=== PATIENT | male | born 1955 | race Two or more races ===

== ENCOUNTER 2022-12-05 18:16 | Emergency (ER) | payer OTHER, MEDICAID ==
[~2022-12-05] VITALS: Ht 167.6 cm; Wt 63.0 kg
[2022-12-05] MEDS ORDERED: SODIUM CHLORIDE 0.9% 1,000 ML IV ONE (18:45)
[2022-12-05 19:25] LABS: Alanine Aminotransferase 13 U/L (7-40); Alkaline Phosphatase 176 U/L (46-116); Anion Gap 10 (5-15); Aspartate Aminotransferase 10 U/L (13-40); BUN/Creatinine Ratio 21.5 (10.0-20.0); Blood Urea Nitrogen 26 mg/dL (9-23); Calcium 8.6 mg/dL (8.7-10.4); Carbon Dioxide 24 mmol/L (20-30); Chloride 91 mmol/L (98-107); Glucose 186 mg/dL (74-106); Sodium 125 mmol/L (136-145)
[2022-12-05 19:26] LABS: Albumin 3.7 g/dL (3.2-4.8); Bilirubin, Total 0.5 mg/dL (0.2-1.0); Total Protein 5.6 g/dL (5.7-8.2)
[2022-12-05 19:43] LABS: Basophils # (auto) 0 10 ^3/uL (0-0.2); Basophils % (auto) 0.1 % (0.0-2.0); Eosinophils # (auto) 0 10 ^3/uL (0-0.8); Eosinophils % (auto) 0.1 % (0.0-7.0); Hematocrit 24.4 % (41.0-53.0); Hemoglobin 8.2 g/dL (13.5-17.5); Lymphocytes # (auto) 3.4 10 ^3/uL (0.4-5.4); Lymphocytes % (auto) 15.4 % (10.0-50.0); Mean Corpuscular Hemoglobin 29.9 pg (28.0-32.0); Mean Corpuscular Hgb Conc. 33.6 g/dL (32.0-36.0); Mean Corpuscular Volume 89.2 fL (80.0-100.0); Monocytes # (auto) 1.7 10 ^3/uL (0-1.3); Monocytes % (auto) 7.5 % (0.0-12.0); Neutrophils # (auto) 17.1 10 ^3/uL (1.6-8.6); Neutrophils % (auto) 76.9 % (37.0-80.0); Nucleated Red Blood Cells % 0.1 %; Red Blood Cells 2.74 10^6/uL (4.5-5.90); Red Cell Distribution Width 14.5 % (11.8-14.3); White Blood Cell 22.3 10^3/uL (4.4-10.8)
[2022-12-05 19:49] LABS: CRP High Sensitivity 19.27 mg/dL (<1.0)
[2022-12-05 20:00] LABS: Erythrocyte Sedimentation Rate 38 mm/hr (0-20)
[2022-12-05] MEDS ORDERED: PIPERACILLIN-TAZOB 3.375GM 100 ML IV ONE (20:15)
[2022-12-05] MEDS ORDERED: VANCOMYCIN 1GM/250ML 250 ML IV ONE (20:15)
[2022-12-05] MEDS ORDERED: LACTATED RINGER'S 1,900 ML IV ONE (20:15)
[2022-12-05 20:30] VITALS: PULSE 86; RESP 22; O2SAT 98
[2022-12-05] MEDS ORDERED: HYDROcodone-ACET 10/325MG TAB PO ONE (21:15)
[2022-12-05] MEDS ORDERED: CLINDAMYCIN 600MG IV 50 ML IV ONE (22:45)
[2022-12-05] MEDS ORDERED: ONDANSETRON HCL 4 MG/2 ML VIAL IV ONE (23:15)
[2022-12-05] MEDS ORDERED: LACTATED RINGER'S 1,000 ML IV ONE (23:45)
[2022-12-05] MEDS ORDERED: ALBUMIN 25% 100 ML IV ONE (23:45)
[2022-12-06] MEDS ORDERED: HYDROmorphone HCL 2 MG/ML VL/or syr IV ONE (01:00)
[2022-12-06 01:19] VITALS: TEMP 97.8; O2SAT 97
[2022-12-06 01:29] VITALS: BP 102/51; PULSE 101; RESP 23
== END 2022-12-06 02:50 | disposition short-term general hospital (02) ==
LOC: ER 18:16
DX: L03.115 Cellulitis of right lower limb (principal); D64.9 Anemia, unspecified; D72.829 Elevated white blood cell count, unspecified; E86.0 Dehydration; E87.20 Acidosis, unspecified; E10.9 Type 1 diabetes mellitus without complications
CPT/HCPCS: 36415; 71045; 73700; 80053; 83605; 85025; 85652; 86141; 87040; 93005; 96361; 96365; 96366; 96367; 96368; 96375; 99291; J1170; J2405; J2543; J3370; J3490; P9047

== ENCOUNTER 2023-11-11 13:07 | Inpatient (IN) | payer OTHER, MEDICAID ==
[~2023-11-11] VITALS: Ht 180.3 cm; Wt 51.4 kg
[2023-11-11 14:16] LABS: Hematocrit 30.1 % (41.0-53.0); Hemoglobin 9.9 g/dL (13.5-17.5); Mean Corpuscular Hemoglobin 31.3 pg (28.0-32.0); Mean Corpuscular Hgb Conc. 32.9 g/dL (32.0-36.0); Platelet Count (auto) 241 10^3/uL (140-450); Red Blood Cells 3.17 10^6/uL (4.5-5.90); Red Cell Distribution Width 17.9 % (11.8-14.3); White Blood Cell 13.5 10^3/uL (4.4-10.8)
[2023-11-11 14:28] LABS: Chloride 108 mmol/L (98-107); Potassium 4.5 mmol/L (3.5-5.1); Sodium 135 mmol/L (136-145)
[2023-11-11 14:29] LABS: Anion Gap 5 (5-15); Calcium 9.5 mg/dL (8.7-10.4); Carbon Dioxide 22 mmol/L (20-30)
[2023-11-11 14:34] VITALS: PULSE 77; RESP 18; O2SAT 98
[2023-11-11 14:34] LABS: BUN/Creatinine Ratio 13.8 (10.0-20.0); Blood Urea Nitrogen 12 mg/dL (9-23); Glucose 124 mg/dL (74-106); Lipase 32 U/L (12-53)
[2023-11-11 14:35] LABS: Band Neutrophils % (manual) 0; Basophils % (manual) 0 (0.0-2.0); Blast Cells 0; Metamyelocytes % 0; Myelocytes % 0; Promyelocytes % 0; Reactive Lymphocytes 0
[2023-11-11] MEDS: ONDANSETRON HCL 4 MG/2 ML VIAL IV ONE ×2 (14:53→18:33)
[2023-11-11] MEDS: MORPHINE SULFATE INJ 2 MG/ml SYRG IV ONE ×2 (14:54→18:33)
[2023-11-11] MEDS: PIPERACILLIN-TAZOB 3.375GM 100 ML IV ONE (15:43)
[2023-11-11 16:37] LABS: Urine Bacteria None Seen /hpf (None Seen)
[2023-11-11 16:55] LABS: Urine Blood 1+ /uL (Negative); Urine Clarity Clear (Clear); Urine Color Light-Yellow (Yellow); Urine Protein, UAD Negative (Negative); Urine Specific Gravity 1.021 (1.001-1.035); Urine Urobilinogen Normal (Negative); Urine WBC 2 /hpf (0 - 3)
[2023-11-11 17:43] LABS: Eosinophils % (manual) 1 (0-7); Lymphocytes % (manual) 56 (10.0-50.0); Monocytes % (manual) 5 (0-12); Smudge Cells 3 /100 WBC
[2023-11-11 17:44] LABS: Anisocytosis Slight; Large Platelets FEW; Macrocytosis Slight; Ovalocytes FEW; Platelet Estimate Adequa
[2023-11-11] MEDS ORDERED: ASPI1CHW5 PO (18:43)
[2023-11-11] MEDS ORDERED: PEN400T PO (18:43)
[2023-11-11] MEDS ORDERED: ATOR-47 PO (18:43)
[2023-11-11] MEDS ORDERED: DEXTROSE (50%) 50ML SYRG IV PRN (19:00)
[2023-11-11 19:35] LABS: Albumin 4.2 g/dL (3.2-4.8); Bilirubin, Total 0.4 mg/dL (0.2-1.0); Total Protein 6.5 g/dL (5.7-8.2)
[2023-11-11 19:48] LABS: Bilirubin, Direct 0.2 mg/dL (<0.3)
[2023-11-11 21:14] VITALS: PULSE 77; RESP 13; O2SAT 96
[2023-11-11] MEDS: InsuLIN REG 1unit/0.01ml Soln (100units/ml) SC SCH (22:00)
[2023-11-11] MEDS: ATORVASTATIN 20 MG TAB PO SCH (22:05)
[2023-11-11] MEDS: PIPERACILLIN-TAZOB 3.375GM 100 ML IV SCH (22:05)
[2023-11-11] MEDS: ACCU-CHEK COMFORT CURVE STRIP VI SCH (22:21)
[2023-11-11] MEDS: MORPHINE SULFATE INJ 2 MG/ml SYRG IV PRN (22:48)
[2023-11-12] MEDS: HYDROcodone-ACET 5/325MG TAB PO PRN (00:26)
[2023-11-12] MEDS: ONDANSETRON HCL 4 MG/2 ML VIAL IV PRN (03:16)
[2023-11-12 06:11] LABS: Basophils # (auto) 0 10 ^3/uL (0-0.2); Basophils % (auto) 0.1 % (0.0-2.0); Eosinophils # (auto) 0.2 10 ^3/uL (0-0.8); Eosinophils % (auto) 2.3 % (0.0-7.0); Hematocrit 27.5 % (41.0-53.0); Hemoglobin 9.4 g/dL (13.5-17.5); Lymphocytes # (auto) 6.3 10 ^3/uL (0.4-5.4); Mean Corpuscular Hemoglobin 32.3 pg (28.0-32.0); Mean Corpuscular Hgb Conc. 34.3 g/dL (32.0-36.0); Mean Corpuscular Volume 94.4 fL (80.0-100.0); Monocytes # (auto) 0.5 10 ^3/uL (0-1.3); Monocytes % (auto) 4.7 % (0.0-12.0); Neutrophils # (auto) 3.5 10 ^3/uL (1.6-8.6); Neutrophils % (auto) 32.9 % (37.0-80.0); Platelet Count (auto) 230 10^3/uL (140-450); Red Blood Cells 2.91 10^6/uL (4.5-5.90); Red Cell Distribution Width 17.2 % (11.8-14.3); White Blood Cell 10.5 10^3/uL (4.4-10.8)
[2023-11-12 06:18] LABS: Alanine Aminotransferase 17 U/L (7-40); Albumin 3.9 g/dL (3.2-4.8); Alkaline Phosphatase 115 U/L (46-116); Anion Gap 6 (5-15); Aspartate Aminotransferase 19 U/L (13-40); BUN/Creatinine Ratio 17.1 (10.0-20.0); Bilirubin, Total 0.4 mg/dL (0.2-1.0); Blood Urea Nitrogen 20 mg/dL (9-23); Carbon Dioxide 25 mmol/L (20-30); Chloride 108 mmol/L (98-107); Glucose 193 mg/dL (74-106); Potassium 4.3 mmol/L (3.5-5.1); Sodium 139 mmol/L (136-145)
[2023-11-12 08:00] VITALS: PULSE 65; RESP 12; O2SAT 97
[2023-11-12 09:45] VITALS: BP 107/51; PULSE 64; RESP 16; TEMP 97.2; O2SAT 92
[2023-11-12] MEDS: PANTOPRAZOLE 40 MG/10 ML VIAL INJ IV SCH (10:06)
[2023-11-12 13:00] VITALS: BP 96/41; PULSE 70; RESP 17; TEMP 97; O2SAT 98
[2023-11-12 16:51] VITALS: BP 129/43; PULSE 74; RESP 16; TEMP 97.9; O2SAT 100
[2023-11-12 20:00] VITALS: PULSE 74; RESP 20; O2SAT 97
[2023-11-12 21:00] VITALS: BP 111/58; PULSE 74; RESP 20; TEMP 97.7; O2SAT 97
[2023-11-13] VITALS (7 sets, daily range): BP systolic 95–133; BP diastolic 53–76; PULSE 67–79; RESP 17–19; TEMP 97.9–98.4; O2SAT 94–100
[2023-11-13] MEDS ORDERED: GADOTERATE MEG 10 MMOL/20ml INJ (0.5MMOL/ml) IV ONE (16:01)
[2023-11-14] VITALS (9 sets, daily range): BP systolic 110–144; BP diastolic 55–71; PULSE 68–81; RESP 13–20; TEMP 97.5–98.7; O2SAT 97–100
[2023-11-14] MEDS ORDERED: BUPIVACAINE 0.5% P/F INJ 10 ML VIAL ONE (12:43)
[2023-11-14] MEDS ORDERED: ceFAZolin 2 GM/D5W100ml 100 ML IV ONE (13:51)
[2023-11-14] MEDS ORDERED: KETAMINE 50mg/ML 1ml syringe ONE (13:57)
[2023-11-14] MEDS ORDERED: MIDAZOLAM HCL 2MG/2ML 2ml VIAL (1mg/ml) ONE (13:57)
[2023-11-14] MEDS: BUPIVACAINE 0.5% MPF INJ 30ML SDV IJ ONE (14:01)
[2023-11-14] MEDS ORDERED: fentaNYL CITRATE 100 MCG/2 ML VL ONE (14:23)
[2023-11-14] MEDS ORDERED: ONDANSETRON HCL 4 MG/2 ML VIAL ONE (14:29)
[2023-11-14] MEDS ORDERED: ONDANSETRON HCL 4 MG/2 ML VIAL IV ONE (14:45)
[2023-11-14] MEDS: MEPERIDINE HCL (25 MG/ML) 1ML VIAL ONE (15:05)
[2023-11-14] MEDS ORDERED: MEPERIDINE HCL (25 MG/ML) 1ML VIAL IM ONE (15:15)
[2023-11-15] VITALS (8 sets, daily range): BP systolic 95–146; BP diastolic 51–75; PULSE 68–80; RESP 17–20; TEMP 97.4–98.2; O2SAT 97–100
[2023-11-15] MEDS: PIPERACILLIN-TAZOB 3.375GM 100 ML IV SCH (01:37)
[2023-11-16] VITALS (8 sets, daily range): BP systolic 114–148; BP diastolic 64–68; PULSE 68–78; RESP 18–20; TEMP 97.8–98.4; O2SAT 93–100
[2023-11-17] VITALS (14 sets, daily range): BP systolic 96–170; BP diastolic 47–81; PULSE 76–97; RESP 12–20; TEMP 97.5–98.2; O2SAT 96–100
[2023-11-17 03:21] LABS: INR 1.04 (0.9-1.15); Partial Thromboplastin Time 26.8 SEC (24.5-34.5)
[2023-11-17] MEDS ORDERED: IODIXANOL 320MG/ML 100ML BTL IV ONE (15:02)
[2023-11-17] MEDS ORDERED: MIDAZOLAM HCL 2MG/2ML 2ml VIAL (1mg/ml) ONE (15:09)
[2023-11-17] MEDS ORDERED: fentaNYL CITRATE 100 MCG/2 ML VL ONE ×2 (15:09→16:04)
[2023-11-17] MEDS ORDERED: LIDOCAINE 2%HCL (LOCAL ANESTH.) INJ 20ML MDV ONE (15:09)
[2023-11-17] MEDS ORDERED: ANGIOMAX 250 MG VIAL IV ONE (15:18)
[2023-11-17] MEDS ORDERED: SODIUM CHL 0.9% 50 ML ONE (15:18)
[2023-11-17] MEDS ORDERED: CLOPIDOGREL BISULFATE 75 MG TAB ONE (16:16)
[2023-11-17] MEDS: cloNIDine HCL 0.1 MG TAB PO ONE (17:41)
[2023-11-17] MEDS ORDERED: cloNIDine HCL 0.1 MG TAB PO PRN (22:00)
[2023-11-18 05:00] VITALS: BP 106/46; PULSE 69; RESP 19; TEMP 98.1; O2SAT 100
[2023-11-18 08:00] VITALS: PULSE 73; RESP 18; O2SAT 99
[2023-11-18 09:08] VITALS: BP 113/65; PULSE 73; RESP 18; TEMP 97.9; O2SAT 99
[2023-11-18] MEDS: CLOPIDOGREL BISULFATE 75 MG TAB PO SCH (09:40)
[2023-11-18] MEDS ORDERED: HYDR-4902 PO (10:20)
[2023-11-18] MEDS ORDERED: CLIN1CAP70 PO (10:20)
[2023-11-18] MEDS ORDERED: ASPI-628 PO (10:31)
[2023-11-18] MEDS ORDERED: CLOP75TA28 PO (10:31)
[2023-11-18 13:00] VITALS: BP 133/59; PULSE 72; RESP 18; TEMP 97.5; O2SAT 98
[2023-11-18] MEDS ORDERED: NOREPINEPHRINE 8 MG/250ML KIT 250 ML IV ONE (13:19)
[2023-11-18] MEDS: LIDOCAINE 1% (LOCAL ANESTH.) PF 5ml SDV ID ONE (15:00)
[2023-11-18 17:00] VITALS: BP 124/63; PULSE 77; RESP 18; TEMP 97.5; O2SAT 100
[2023-11-18 20:12] VITALS: BP 124/64; PULSE 77; RESP 18
[2023-11-18] MEDS ORDERED: SODIUM CHLOR 0.9% PF (SALINE LOCK) 10ML VIAL/SYR IV SCH (22:00)
== END 2023-11-18 19:00 | disposition home health service (06) | DRG 271 ==
LOC: EDUNIT# 13:07 → EDBD 13:07 → ER 13:07 → OVERFLOW 18:52 → WEST WING 11-12 09:31
PROVIDERS: ADMIT Registered Nurse General Practice; ATTEND Family Medicine
PROC: 0Y9M0ZZ Drainage of Right Foot, Open Approach (ICD-10-PCS; 2023-11-14)
PROC: 0QBL0ZX Excision of Right Tarsal, Open Approach, Diagnostic (ICD-10-PCS; principal; 2023-11-14 13:57)
PROC: 04CK3ZZ Extirpation of Matter from Right Femoral Artery, Percutaneous Approach (ICD-10-PCS; 2023-11-17)
PROC: 04FK3ZZ Fragmentation of Right Femoral Artery, Percutaneous Approach (ICD-10-PCS; 2023-11-17)
PROC: 047M3Z1 Dilation of Right Popliteal Artery using Drug-Coated Balloon, Percutaneous Approach (ICD-10-PCS; 2023-11-17)
PROC: 047K3Z1 Dilation of Right Femoral Artery using Drug-Coated Balloon, Percutaneous Approach (ICD-10-PCS; 2023-11-17)
PROC: 047T3Z1 Dilation of Right Peroneal Artery using Drug-Coated Balloon, Percutaneous Approach (ICD-10-PCS; 2023-11-17)
PROC: 04FM3ZZ Fragmentation of Right Popliteal Artery, Percutaneous Approach (ICD-10-PCS; 2023-11-17)
PROC: 04FT3ZZ Fragmentation of Right Peroneal Artery, Percutaneous Approach (ICD-10-PCS; 2023-11-17)
PROC: 04CM3ZZ Extirpation of Matter from Right Popliteal Artery, Percutaneous Approach (ICD-10-PCS; 2023-11-17)
PROC: 04CT3ZZ Extirpation of Matter from Right Peroneal Artery, Percutaneous Approach (ICD-10-PCS; 2023-11-17)
PROC: B41FYZZ Fluoroscopy of Right Lower Extremity Arteries using Other Contrast (ICD-10-PCS; 2023-11-17)
PROC: B41GYZZ Fluoroscopy of Left Lower Extremity Arteries using Other Contrast (ICD-10-PCS; 2023-11-17)
PROC: 047Q3Z1 Dilation of Left Anterior Tibial Artery using Drug-Coated Balloon, Percutaneous Approach (ICD-10-PCS; 2023-11-17)
PROC: 02HV33Z Insertion of Infusion Device into Superior Vena Cava, Percutaneous Approach (ICD-10-PCS; 2023-11-18)
PROC: B548ZZA Ultrasonography of Superior Vena Cava, Guidance (ICD-10-PCS; 2023-11-18)
DX: T82.856A Stenosis of peripheral vascular stent, initial encounter (principal); I16.1 Hypertensive emergency; M86.171 Other acute osteomyelitis, right ankle and foot; L02.611 Cutaneous abscess of right foot; L03.115 Cellulitis of right lower limb; E11.51 Type 2 diabetes mellitus with diabetic peripheral angiopathy without gangrene; I70.201 Unspecified atherosclerosis of native arteries of extremities, right leg; E11.69 Type 2 diabetes mellitus with other specified complication; E78.00 Pure hypercholesterolemia, unspecified; R31.9 Hematuria, unspecified; E78.5 Hyperlipidemia, unspecified; J44.9 Chronic obstructive pulmonary disease, unspecified; Z86.73 Personal history of transient ischemic attack (TIA), and cerebral infarction without residual deficits; Z95.1 Presence of aortocoronary bypass graft; Z79.82 Long term (current) use of aspirin
CPT/HCPCS: 34201; 34203; 36415; 36569; 37226; 37230; 37252; 71045; 73700; 73718; 74176; 75710; 80048; 80053; 80076; 81001; 82962; 83036; 83605; 83690; 85007; 85025; 85027; 85610; 85730; 86850; 86900; 86901; 87040; 93005; 93925; 99152; 99291; C1725; G0378; J1815; J2250; J2405; J2470; J2543; J3490; Q9967

== ENCOUNTER 2023-11-26 21:12 | Inpatient (IN) | payer OTHER, MEDICAID ==
[~2023-11-26] VITALS: Ht 172.7 cm; Wt 56.3 kg
[~2023-11-26 21:12] MED LIST: ASPI-628 PO; ASPI1CHW5 PO; ATOR-47 PO; CLIN1CAP70 PO; CLOP75TA28 PO; HYDR-4902 PO
[2023-11-26 21:35] LABS: Basophils # (auto) 0 10 ^3/uL (0-0.2); Basophils % (auto) 0.1 % (0.0-2.0); Eosinophils # (auto) 0.4 10 ^3/uL (0-0.8); Eosinophils % (auto) 1.5 % (0.0-7.0); Hematocrit 32.6 % (41.0-53.0); Hemoglobin 10.6 g/dL (13.5-17.5); Lymphocytes # (auto) 6.9 10 ^3/uL (0.4-5.4); Lymphocytes % (auto) 27.2 % (10.0-50.0); Mean Corpuscular Hemoglobin 30.8 pg (28.0-32.0); Mean Corpuscular Hgb Conc. 32.6 g/dL (32.0-36.0); Mean Corpuscular Volume 94.3 fL (80.0-100.0); Monocytes # (auto) 1.1 10 ^3/uL (0-1.3); Monocytes % (auto) 4.3 % (0.0-12.0); Neutrophils % (auto) 66.9 % (37.0-80.0); Platelet Count (auto) 195 10^3/uL (140-450); Red Blood Cells 3.46 10^6/uL (4.5-5.90); Red Cell Distribution Width 16.8 % (11.8-14.3); White Blood Cell 25.4 10^3/uL (4.4-10.8)
[2023-11-26] MEDS: ONDANSETRON HCL 4 MG/2 ML VIAL IV ONE (21:49)
[2023-11-26 21:50] VITALS: PULSE 85; RESP 15; O2SAT 99
[2023-11-26] MEDS: SODIUM CHLORIDE 0.9% 1,000 ML IV ONE (21:50)
[2023-11-26] MEDS: MORPHINE SULFATE 4 MG/ML SYR/VIAL IV ONE (21:50)
[2023-11-26 21:51] LABS: Alanine Aminotransferase 30 U/L (7-40); Albumin 4.1 g/dL (3.2-4.8); Alkaline Phosphatase 117 U/L (46-116); Anion Gap 8 (5-15); Aspartate Aminotransferase 18 U/L (13-40); BUN/Creatinine Ratio 16.8 (10.0-20.0); Bilirubin, Total 0.4 mg/dL (0.2-1.0); Blood Urea Nitrogen 18 mg/dL (9-23); Calcium 9.3 mg/dL (8.7-10.4); Carbon Dioxide 22 mmol/L (20-31); Chloride 105 mmol/L (98-107); Glucose 341 mg/dL (74-106); Potassium 3.9 mmol/L (3.5-5.1); Sodium 135 mmol/L (136-145); Total Protein 6.4 g/dL (5.7-8.2)
[2023-11-26 21:52] LABS: INR 1.07 (0.9-1.15); Partial Thromboplastin Time 25.6 SEC (24.5-34.5); Prothrombin Time 11.3 sec (9.3-11.8)
[2023-11-26] MEDS: cefEPIME 1gm INJ VIAL IM ONE (23:15)
[2023-11-26] MEDS: VANCOMYCIN 1GM/250ML 200 ML IV ONE (23:32)
[2023-11-26 23:59] LABS: Lactic Acid w/Reflex 2.1 mmol/L (0.4-2.0)
[2023-11-27] VITALS (7 sets, daily range): BP systolic 125–164; BP diastolic 73–86; PULSE 75–82; RESP 17–20; TEMP 97.6–98.8; O2SAT 20–100
[2023-11-27] MEDS: CEFEPIME 1GM/ 50ML 50 ML IV ONE (00:08)
[2023-11-27] MEDS ORDERED: DOCUSATE SOD 100 MG CAP PO PRN (02:45)
[2023-11-27] MEDS ORDERED: VANCOMYCIN PER PHARMACY 0 MG IV SCH (02:45)
[2023-11-27] MEDS ORDERED: DEXTROSE (50%) 50ML SYRG IV PRN (02:45)
[2023-11-27] MEDS ORDERED: ONDANSETRON HCL 4 MG/2 ML VIAL IV PRN (02:45)
[2023-11-27] MEDS ORDERED: ACETAMINOPHEN 325 MG TAB PO PRN (02:45)
[2023-11-27] MEDS: HYDROcodone-ACET 5/325MG TAB PO PRN (03:58)
[2023-11-27] MEDS: InsuLIN REG 1unit/0.01ml Soln (100units/ml) SC SCH (04:00)
[2023-11-27] MEDS: ACCU-CHEK COMFORT CURVE STRIP VI SCH (04:04)
[2023-11-27] MEDS: SODIUM CHLORIDE 0.9% 1,000 ML IV SCH (04:08)
[2023-11-27] MEDS ORDERED: MORPHINE SULFATE INJ 2 MG/ml SYRG IV PRN (05:45)
[2023-11-27] MEDS ORDERED: NITROGLYCERIN 0.4 MG SL TAB SL PRN (05:45)
[2023-11-27] MEDS: ASPirin 81 mg TAB PO SCH (10:00)
[2023-11-27] MEDS: VANCOMYCIN 750mg/150ml 150 ML IV SCH (11:29)
[2023-11-27 11:51] LABS: Basophils # (auto) 0.1 10 ^3/uL (0-0.2); Basophils % (auto) 0.3 % (0.0-2.0); Eosinophils % (auto) 5.5 % (0.0-7.0); Hematocrit 35.5 % (41.0-53.0); Hemoglobin 11.6 g/dL (13.5-17.5); Lymphocytes # (auto) 7.9 10 ^3/uL (0.4-5.4); Lymphocytes % (auto) 42.3 % (10.0-50.0); Mean Corpuscular Hgb Conc. 32.8 g/dL (32.0-36.0); Mean Corpuscular Volume 94.7 fL (80.0-100.0); Monocytes # (auto) 0.6 10 ^3/uL (0-1.3); Monocytes % (auto) 3.3 % (0.0-12.0); Neutrophils # (auto) 9.1 10 ^3/uL (1.6-8.6); Neutrophils % (auto) 48.6 % (37.0-80.0); Platelet Count (auto) 227 10^3/uL (140-450); Red Blood Cells 3.75 10^6/uL (4.5-5.90); White Blood Cell 18.6 10^3/uL (4.4-10.8)
[2023-11-27 13:08] LABS: Chloride 111 mmol/L (98-107); Potassium 4.6 mmol/L (3.5-5.1); Sodium 140 mmol/L (136-145)
[2023-11-27 13:09] LABS: Anion Gap 6 (5-15); Calcium 9.4 mg/dL (8.7-10.4); Carbon Dioxide 23 mmol/L (20-31)
[2023-11-27 13:14] LABS: Blood Urea Nitrogen 17 mg/dL (9-23)
[2023-11-27 13:28] LABS: Glucose 152 mg/dL (74-106)
[2023-11-27] MEDS: CEFEPIME 1GM/ 50ML 50 ML IV SCH (14:26)
[2023-11-27] MEDS: ATORVASTATIN 20 MG TAB PO SCH (20:26)
[2023-11-28] VITALS (7 sets, daily range): BP systolic 118–148; BP diastolic 61–74; PULSE 74–80; RESP 18–71; TEMP 97.2–98.1; O2SAT 95–100
[2023-11-28 06:08] LABS: Alanine Aminotransferase 21 U/L (7-40); Alkaline Phosphatase 102 U/L (46-116); Anion Gap 10 (5-15); Aspartate Aminotransferase 16 U/L (13-40); BUN/Creatinine Ratio 26.1 (10.0-20.0); Bilirubin, Total 0.3 mg/dL (0.2-1.0); Blood Urea Nitrogen 24 mg/dL (9-23); Calcium 9.2 mg/dL (8.7-10.4); Carbon Dioxide 19 mmol/L (20-31); Chloride 111 mmol/L (98-107); Glucose 105 mg/dL (74-106); Potassium 4.7 mmol/L (3.5-5.1); Sodium 140 mmol/L (136-145); Total Protein 5.9 g/dL (5.7-8.2)
[2023-11-28 06:15] LABS: Hematocrit 34.9 % (41.0-53.0); Hemoglobin 10.9 g/dL (13.5-17.5); Mean Corpuscular Hemoglobin 30.5 pg (28.0-32.0); Mean Corpuscular Hgb Conc. 31.2 g/dL (32.0-36.0); Platelet Count (auto) 210 10^3/uL (140-450); Red Blood Cells 3.56 10^6/uL (4.5-5.90); Red Cell Distribution Width 17.8 % (11.8-14.3); White Blood Cell 20.6 10^3/uL (4.4-10.8)
[2023-11-28 06:19] LABS: Band Neutrophils % (manual) 0; Basophils % (manual) 0 (0.0-2.0); Blast Cells 0; Metamyelocytes % 0; Myelocytes % 0; Promyelocytes % 0; Reactive Lymphocytes 0
[2023-11-28 08:44] LABS: Eosinophils % (manual) 2 (0-7); Lymphocytes % (manual) 45 (10.0-50.0); Monocytes % (manual) 8 (0-12); Platelet Estimate Adequate
[2023-11-28 09:09] LABS: Hepatitis B Surface Antigen Negative (Negative)
[2023-11-28 09:35] LABS: Hepatitis C Antibody Reactive (Negative)
[2023-11-28] MEDS: ERGOCALCIFEROL 50,000 UNIT(1.25MG) CAP PO SCH (11:57)
[2023-11-29] VITALS (8 sets, daily range): BP systolic 95–131; BP diastolic 55–72; PULSE 75–80; RESP 16–20; TEMP 97.2–97.9; O2SAT 99–100
[2023-11-29 07:25] LABS: Anion Gap 7 (5-15); Carbon Dioxide 22 mmol/L (20-31); Chloride 108 mmol/L (98-107); Sodium 137 mmol/L (136-145)
[2023-11-29 07:27] LABS: Calcium 9.2 mg/dL (8.7-10.4)
[2023-11-29 07:32] LABS: BUN/Creatinine Ratio 21.4 (10.0-20.0); Basophils # (auto) 0 10 ^3/uL (0-0.2); Basophils % (auto) 0.3 % (0.0-2.0); Blood Urea Nitrogen 25 mg/dL (9-23); Eosinophils % (auto) 5.9 % (0.0-7.0); Hematocrit 32.2 % (41.0-53.0); Hemoglobin 10.5 g/dL (13.5-17.5); Lymphocytes # (auto) 7.5 10 ^3/uL (0.4-5.4); Lymphocytes % (auto) 46.2 % (10.0-50.0); Mean Corpuscular Hemoglobin 30.9 pg (28.0-32.0); Mean Corpuscular Hgb Conc. 32.5 g/dL (32.0-36.0); Mean Corpuscular Volume 95.2 fL (80.0-100.0); Monocytes # (auto) 0.6 10 ^3/uL (0-1.3); Monocytes % (auto) 3.9 % (0.0-12.0); Neutrophils # (auto) 7.1 10 ^3/uL (1.6-8.6); Neutrophils % (auto) 43.7 % (37.0-80.0); Platelet Count (auto) 208 10^3/uL (140-450); Red Blood Cells 3.39 10^6/uL (4.5-5.90); Red Cell Distribution Width 17.1 % (11.8-14.3); White Blood Cell 16.3 10^3/uL (4.4-10.8)
[2023-11-29 07:35] LABS: Glucose 301 mg/dL (74-106)
[2023-11-29 08:54] LABS: Urine Bacteria None Seen /hpf (None Seen)
[2023-11-29 09:36] LABS: Urine Blood Negative /uL (Negative); Urine Clarity Clear (Clear); Urine Color Light-Yellow (Yellow); Urine Protein, UAD Negative (Negative); Urine Specific Gravity 1.028 (1.001-1.035); Urine Urobilinogen Normal (Negative); Urine WBC 41 /hpf (0 - 3); Urine pH 5.5 (5.0-9.0)
[2023-11-29 09:41] LABS: Amphetamine Screen, Urine Neg (NEGATIVE); Barbiturate Scree,Urine Neg (NEGATIVE); Benzodiazephine Screen, Urine Neg (NEGATIVE); Cannabinoid Screen, Urine Neg (NEGATIVE); Cocaine Screen, Urine Neg (NEGATIVE); Opiate Scree,Urine Pos (NEGATIVE); Phencyclidine Screen, Urine Neg (NEGATIVE)
[2023-11-30] VITALS (7 sets, daily range): BP systolic 106–136; BP diastolic 47–83; PULSE 72–100; RESP 18–20; TEMP 97.2–98.1; O2SAT 95–100
[2023-11-30 07:42] LABS: Hematocrit 27.8 % (41.0-53.0); Hemoglobin 9.2 g/dL (13.5-17.5); Mean Corpuscular Hemoglobin 31.4 pg (28.0-32.0); Mean Corpuscular Hgb Conc. 33.1 g/dL (32.0-36.0); Mean Corpuscular Volume 95.1 fL (80.0-100.0); Platelet Count (auto) 192 10^3/uL (140-450); Red Blood Cells 2.92 10^6/uL (4.5-5.90); Red Cell Distribution Width 16.8 % (11.8-14.3); White Blood Cell 13.3 10^3/uL (4.4-10.8)
[2023-11-30 07:45] LABS: Anion Gap 8 (5-15); Calcium 9.1 mg/dL (8.7-10.4); Carbon Dioxide 22 mmol/L (20-31); Chloride 112 mmol/L (98-107); Potassium 4.3 mmol/L (3.5-5.1); Sodium 142 mmol/L (136-145)
[2023-11-30 07:51] LABS: BUN/Creatinine Ratio 29.3 (10.0-20.0); Glucose 103 mg/dL (74-106)
[2023-11-30 08:00] LABS: Blood Urea Nitrogen 39 mg/dL (9-23)
[2023-11-30 08:10] LABS: Band Neutrophils % (manual) 0; Basophils % (manual) 0 (0.0-2.0); Blast Cells 0; Metamyelocytes % 0; Myelocytes % 0; Promyelocytes % 0; Reactive Lymphocytes 0
[2023-11-30 08:39] LABS: Eosinophils % (manual) 5 (0-7); Lymphocytes % (manual) 59 (10.0-50.0); Monocytes % (manual) 4 (0-12)
[2023-11-30 08:40] LABS: Platelet Estimate Adequate
[2023-12-01] VITALS (7 sets, daily range): BP systolic 107–138; BP diastolic 46–76; PULSE 58–82; RESP 18–20; TEMP 97.5–98.4; O2SAT 96–100
[2023-12-01 05:50] LABS: Anion Gap 4 (5-15); Carbon Dioxide 22 mmol/L (20-31); Chloride 111 mmol/L (98-107); Potassium 4.7 mmol/L (3.5-5.1); Sodium 137 mmol/L (136-145)
[2023-12-01 05:51] LABS: Calcium 8.8 mg/dL (8.7-10.4)
[2023-12-01 06:05] LABS: Blood Urea Nitrogen 27 mg/dL (9-23); Glucose 276 mg/dL (74-106)
[2023-12-01] MEDS ORDERED: ERGO1CAP23 PO (07:38)
[2023-12-01] MEDS: VANCOMYCIN 750mg/150ml 150 ML IV ONE (11:48)
[2023-12-02] VITALS (9 sets, daily range): BP systolic 112–150; BP diastolic 43–57; PULSE 69–82; RESP 17–20; TEMP 97.4–97.9; O2SAT 98–100
[2023-12-02 07:36] LABS: Anion Gap 7 (5-15); Carbon Dioxide 23 mmol/L (20-31); Chloride 112 mmol/L (98-107); Potassium 4.4 mmol/L (3.5-5.1); Sodium 142 mmol/L (136-145)
[2023-12-02 07:37] LABS: Calcium 9.5 mg/dL (8.7-10.4)
[2023-12-02 07:42] LABS: Blood Urea Nitrogen 26 mg/dL (9-23); Glucose 82 mg/dL (74-106)
[2023-12-02] MEDS: VANCOMYCIN 750mg/150ml 150 ML IV SCH (16:00)
[2023-12-03 01:00] VITALS: BP 135/80; PULSE 80; RESP 20; TEMP 98; O2SAT 98
[2023-12-03 05:00] VITALS: BP 140/80; PULSE 81; RESP 19; TEMP 98.3; O2SAT 99
[2023-12-03 05:59] LABS: Mean Corpuscular Hemoglobin 31.6 pg (28.0-32.0); Mean Corpuscular Hgb Conc. 33.3 g/dL (32.0-36.0); Mean Corpuscular Volume 94.6 fL (80.0-100.0); Platelet Count (auto) 204 10^3/uL (140-450); Red Blood Cells 2.86 10^6/uL (4.5-5.90); Red Cell Distribution Width 17.1 % (11.8-14.3); White Blood Cell 18.2 10^3/uL (4.4-10.8)
[2023-12-03 06:02] LABS: Band Neutrophils % (manual) 0; Basophils % (manual) 0 (0.0-2.0); Blast Cells 0; Metamyelocytes % 0; Monocytes % (manual) 0 (0-12); Myelocytes % 0; Promyelocytes % 0
[2023-12-03 06:30] LABS: Eosinophils % (manual) 3 (0-7); Lymphocytes % (manual) 49 (10.0-50.0); Platelet Estimate Adequate; Reactive Lymphocytes 2
[2023-12-03 08:30] VITALS: PULSE 74; RESP 18; O2SAT 100
[2023-12-03 08:42] VITALS: BP 114/65; PULSE 79; RESP 18; TEMP 97.9; O2SAT 100
[2023-12-03 10:09] LABS: INR 1.06 (0.9-1.15); Partial Thromboplastin Time 25.3 SEC (24.5-34.5); Prothrombin Time 11.2 sec (9.3-11.8)
[2023-12-03] MEDS: LIDOCAINE 1% (LOCAL ANESTH.) PF 5ml SDV ID ONE (12:00)
[2023-12-03 13:00] VITALS: BP 120/69; PULSE 69; RESP 19; TEMP 98.6; O2SAT 98
[2023-12-03] MEDS ORDERED: CEFEPIME 1GM/ 50ML 50 ML IV SCH (21:00)
[2023-12-03] MEDS ORDERED: SODIUM CHLOR 0.9% PF (SALINE LOCK) 10ML VIAL/SYR IV SCH (22:00)
== END 2023-12-03 15:00 | disposition home health service (06) | DRG 871 ==
LOC: EDBD 21:12 → ER 21:12 → TELE 11-27 05:43 → TELE-WESTW 11-27 08:55 → WEST WING 11-28 01:22
PROVIDERS: ADMIT Internal Medicine; ATTEND Emergency Medicine
PROC: 05H933Z Insertion of Infusion Device into Right Brachial Vein, Percutaneous Approach (ICD-10-PCS; principal; 2023-12-03)
PROC: B54MZZA Ultrasonography of Right Upper Extremity Veins, Guidance (ICD-10-PCS; 2023-12-03)
DX: A41.9 Sepsis, unspecified organism (principal); N17.0 Acute kidney failure with tubular necrosis; M86.171 Other acute osteomyelitis, right ankle and foot; I30.9 Acute pericarditis, unspecified; N39.0 Urinary tract infection, site not specified; M31.8 Other specified necrotizing vasculopathies; E78.00 Pure hypercholesterolemia, unspecified; I10 Essential (primary) hypertension; E11.621 Type 2 diabetes mellitus with foot ulcer; E11.69 Type 2 diabetes mellitus with other specified complication; E11.40 Type 2 diabetes mellitus with diabetic neuropathy, unspecified; E87.5 Hyperkalemia; I25.10 Atherosclerotic heart disease of native coronary artery without angina pectoris; I70.201 Unspecified atherosclerosis of native arteries of extremities, right leg; J44.9 Chronic obstructive pulmonary disease, unspecified; B96.89 Other specified bacterial agents as the cause of diseases classified elsewhere; M94.0 Chondrocostal junction syndrome [Tietze]; Z95.1 Presence of aortocoronary bypass graft; Z79.82 Long term (current) use of aspirin; Z79.899 Other long term (current) drug therapy; Z86.73 Personal history of transient ischemic attack (TIA), and cerebral infarction without residual deficits; Z83.3 Family history of diabetes mellitus
CPT/HCPCS: 36415; 36569; 71045; 80048; 80053; 80202; 80307; 81001; 82306; 82565; 82607; 82728; 82962; 83540; 83550; 83605; 83735; 83880; 84443; 84484; 85007; 85025; 85027; 85610; 85730; 86803; 87040; 87086; 87340; 93005; 93306; 99291; G0378; J1815; J2405

== ENCOUNTER 2023-12-18 20:57 | Inpatient (IN) | payer OTHER, MEDICAID ==
[~2023-12-18] VITALS: Ht 177.8 cm; Wt 82.0 kg
[~2023-12-18 20:57] MED LIST changes: -ASPI-628 PO; -CLIN1CAP70 PO; +ERGO1CAP23 PO
[2023-12-18] MEDS: IOHEXOL 350 MG/ML 100ML IJ ONE (21:13)
[2023-12-18 21:20] LABS: Hematocrit 31.6 % (41.0-53.0); Hemoglobin 10.2 g/dL (13.5-17.5); Mean Corpuscular Hemoglobin 30.7 pg (28.0-32.0); Mean Corpuscular Hgb Conc. 32.3 g/dL (32.0-36.0); Mean Corpuscular Volume 94.9 fL (80.0-100.0); Platelet Count (auto) 190 10^3/uL (140-450); Red Blood Cells 3.33 10^6/uL (4.5-5.90); Red Cell Distribution Width 16.7 % (11.8-14.3); White Blood Cell 8.2 10^3/uL (4.4-10.8)
[2023-12-18 21:24] LABS: Band Neutrophils % (manual) 0; Basophils % (manual) 0 (0.0-2.0); Blast Cells 0; Metamyelocytes % 0; Myelocytes % 0; Promyelocytes % 0; Reactive Lymphocytes 0
--- NOTE | 2023-12-18 21:27 | ED.PDOC ---
History of Present Illness HPI Comments This is a 68-year-old male who comes in with chief complaint of back pain that radiates towards the chest. The patient states that the pain is a 9/10. There has been no nausea but the patient did have some vomiting today. The patient's vital signs have been stable upon transport to our facility. EN route, the patient had an Accu-Chek of 272. The patient was currently being treated for an infection to the right foot with vancomycin and cefepime. Chief Complaint: Back Pain Time Seen by MD: 20:58 Primary Care Provider: ? Reviewed Notes: Nurses Notes, Furs Salesperson Notes, Medications, Allergies (No raj rgies to medications) Allergies: Coded Allergies: NO KNOWN ALLERGIES (Unverified , 12/05/22) Home Meds Active Scripts Ergocalciferol (VITAMIN D 67504 UNIT) 50,000 [place], [address] UNIT PO Q7D for 90 Days, #12 CAP Prov:SEBLE CASTANEDA RESIDENT 12/01/23 Clopidogrel Bisulfate (Plavix) 75 Mg Tab, 1 TAB PO DAILY, #90 TAB 1 Refill Prov:NAZIA PERRY MD 11/18/23 Hydrocodone-Acetaminophen (Hydrocodone Bitartrate/AC 5-325 mg) 1 Tab Tab, 1 TAB PO QID PRN, #30 TAB Prov:NAZIA PERRY MD 11/18/23 Reported Medications Aspirin (Chewable Aspirin) 81 Mg Chw, 81 MG PO DAILY 11/11/23 Atorvastatin Calcium (ATORVASTATIN CALCIUM) 80 Mg Tab, 80 MG PO DAILY 11/11/23 Information Source: Patient, Emergency Med Personnel Mode of Arrival: EMS Severity: Moderate Timing: Hours (Symptoms started at 8:00 p.m. last night) Duration: Since onset Prehospital treatment: None Associated signs and symptoms The patient denies any diarrhea but is having some vomiting Past Medical History PAST MEDICAL HISTORY: CAD, COPD, CVA, DM, HTN, [place] Surgical History: CABG, PTCA Surgical History (Other): Right foot she also surgery, right arm PICC line Family History Family History: Reviewed,noncontributory to illness, Unknown Social History Smoker: Non-Smoker Alcohol: Denies ETOH Use Drugs: Denies Drug Use Lives In: Home Constitutional: denies: chills, diaphoresis, fatigue, fever, malaise, sweats, weakness, others EENTM: denies: blurred vision, double vision, ear bleeding, ear discharge, ear drainage, ear pain, ear ringing, eye pain, eye redness, hearing loss, mouth pain, mouth swelling, nasal discharge, nose bleeding, nose congestion, nose pain, photophobia, tearing, throat pain, throat swelling, voice changes, others Respiratory: denies: cough, hemoptysis, orthopnea, SOB at rest, shortness of breath, SOB with excertion, stridor, wheezing, others Cardiovascular: reports: chest pain; denies: dizzy spells, diaphoresis, Dyspnea on exertion, edema, irregular heart beat, left arm pain, lightheadedness, palpitations, PND, syncope, others Gastrointestinal: reports: nausea, vomiting; denies: abdomen distended, abdominal pain, blood streaked bowels, constipated, diarrhea, dysphagia, difficulty swallowing, hematemesis, melena, poor appetite, poor fluid intake, rectal bleeding, rectal pain, others Genitourinary: denies: burning, dysuria, flank pain, frequency, hematuria, incontinence, penile discharge, penile sore, pain, testicle pain, testicle swelling, urgency, others Neurological: denies: dizziness, fainting, headache, left sided numbness, left sided weakness, numbness, paresthesia, pre-existing deficit, right sided nu mbness, right sided weakness, seizure, speech problems, tingling, tremors, weakness, others Musculoskeletal: reports: back pain; denies: gout, joint pain, joint swelling, muscle pain, muscle stiffness, neck pain, others Integumetry: denies: bruises, change in color, change in hair/nails, dryness, laceration, lesions, lumps, rash, wounds, others Allergic/Immunocompromised: denies: Difficulty Healing, Frequent Infections, H tree, Itching, others Hematologic/Lymphatic: denies: anemia, blood clots, easy bleeding, easy bruising, swollen glands, others Endocrine: denies: excessive hunger, excessive sweating, excessive thirst, excessive urination, flushing, intolerance to cold, intolerance to heat, unexplained weight gain, unexplained weight loss, others Psychiatric: denies: anxiety, bipolar disorder, depression, hopeless, panic disorder, schizophrenia, sleepless, suicidal, others Physical Exam General Appearance: Moderate Distress HEENT: Normal ENT Inspection, Pharynx Normal, TMs Normal Neck: Full Range of Motion, Non-Tender, Normal, Normal Inspection Respiratory: Chest Non-Tender, Lungs Clear, No Accessory Muscle Use, No Respiratory Distress, Normal Breath Sounds Cardiovascular: No Edema, No JVD, No Murmur, No Gallop, Normal Peripheral Pulses, Regular Rate/Rhythm Breast Exam: Deferred Gastrointestinal: No Organomegaly, Non Tender, No Pulsatile Mass, Normal Bowel Sounds, Soft Genitalia: Deferred Pelvic: Deferred Rectal: Deferred Extremities: No calf tenderness, Normal capillary refill, Normal inspection, Normal range of motion, Non-tender, No pedal edema Musculoskeletal : Apperance: Normal Neurologic: Alert, 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 Was a procedure done?: No EKG EKG : Pulse Rate (adult): 86 [place]: Normal Cardiac Rhythm: NSR Hypertrophy: LAE ST: Nonsp Differential Dx Considerations may include: Generalized weakness, electrolyte imbalance, PE, dissection of an aneurysm X-Ray, Labs, Meds, VS Vital Signs Date Time Temp Pulse Resp B/P (MAP) Pulse Ox O2 Delivery O2 Flow Rate FiO2 12/18/23 21:27 86 12/18/23 21:11 97.7 88 18 135/61 (85) 100 12/18/23 21:01 86 Lab Test 12/18/23 21:12 Range/Units White Blood Count 8.2 4.4-10.8 10^3/uL Red Blood Count 3.33 L 4.5-5.90 10^6/uL Hemoglobin 10.2 L 13.5-17.5 g/dL Hematocrit 31.6 L 41.0-53.0 % Mean Corpuscular Volume 94.9 80.0-100.0 fL Mean Corpuscular Hemoglobin 30.7 28.0-32.0 pg Mean Corpuscular Hemoglobin Concent 32.3 32.0-36.0 g/dL Red Cell Distribution Width 16.7 H 11.8-14.3 % Platelet Count 190 140-450 10^3/uL Mean Platelet Volume 9.0 6.9-10.8 fL Neutrophils (%) (Auto) 37.0-80.0 % Lymphocytes (%) (Auto) 10.0-50.0 % Monocytes (%) (Auto) 0.0-12.0 % Basophils (%) (Auto) 0.0-2.0 % Neutrophils # (Auto) 1.6-8.6 10 ^3/uL Lymphocytes # (Auto) 0.4-5.4 10 ^3/uL Monocytes # (Auto) 0-1.3 10 ^3/uL Differential Total Cells Counted Pending Neutrophils % (Manual) Pending Band Neutrophils % (Manual) Pending Lymphocytes % (Manual) Pending Monocytes % (Manual) Pending Eosinophils % (Manual) Pending Basophils % (Manual) Pending Metamyelocytes % (manual) Pending Myelocytes % (Manual) Pending Promyelocytes % (Manual) Pending Blast Cells % (Manual) Pending Reactive Lymphocytes Pending Platelet Estimate Pending Prothrombin Time Pending Prothrombin Time INR Pending Activated Partial Thromboplast Time Pending Sodium Level Pending Potassium Level Pending Chloride Level Pending Carbon Dioxide Level Pending Anion Gap Pending Blood Urea Nitrogen Pending Creatinine Pending Glomerular Filtration Rate Calc Pending BUN/Creatinine Ratio Pending Serum Glucose Pending Calcium Level Pending Troponin I High Sensitivity Pending IV Hep-Lock was established The patient's CBC shows anemia with a hemoglobin of 10.2 and a hematocrit of 31.6 The platelets are within normal limits At this time, the patient is pending a CT scan of the chest as well as the rest of the lab work The patient will be signed out to Dr. Sutton Images Reviewed?: Images reviewed and evaluated by me Time of 1ST Reevaluation: 21:27 Reevaluation 1ST: Unchanged Patient Education/Counseling: Diagnosis, Treatment, Prognosis Family Education/Counseling: No Family Present Departure 1 Departure Time of Disposition: 21:48 Impression: Primary Impression: Acute chest pain Additional Impressions: Anemia Qualified Codes: D64.9 - Anemia, unspecified Cellulitis of right foot Disposition: 30 STILL A PATIENT Condition: Fair Critical Care Note Critical Care Time?: Yes (35 min-critical care time only) Stability Stability form required: Yes Unstable for transfer: Telemetry monitoring (Telemetry monitoring required), ED Physician Assesment (Clinical assesment) Heart Score Heart Score: Heart Score Response (Comments) Value History Moderate Suspicious 1 EKG Normal 0 Age 45-64 1 Risk Factors N/A 0 Troponin Normal limit 0 Total 2 DORIAN LITTLEJOHN MD Dec 18, 2023 21:27
[2023-12-18 21:48] LABS: Eosinophils % (manual) 2 (0-7); Lymphocytes % (manual) 56 (10.0-50.0); Monocytes % (manual) 6 (0-12); Platelet Estimate Adequate
[2023-12-18 21:49] LABS: RBC Morphology Normal
[2023-12-18 21:50] LABS: INR 1.03 (0.9-1.15); Partial Thromboplastin Time 25.2 SEC (24.5-34.5); Prothrombin Time 10.9 sec (9.3-11.8)
[2023-12-18 22:21] LABS: Chloride 107 mmol/L (98-107); Potassium 4.2 mmol/L (3.5-5.1); Sodium 138 mmol/L (136-145)
[2023-12-18 22:22] LABS: Anion Gap 9 (5-15); Calcium 9.9 mg/dL (8.7-10.4); Carbon Dioxide 22 mmol/L (20-31)
[2023-12-18 22:27] LABS: BUN/Creatinine Ratio 18.7 (10.0-20.0); Blood Urea Nitrogen 17 mg/dL (9-23); Glucose 328 mg/dL (74-106)
[2023-12-18] MEDS: ONDANSETRON HCL 4 MG/2 ML VIAL IV ONE (23:19)
[2023-12-18] MEDS: MORPHINE SULFATE 4 MG/ML SYR/VIAL IV ONE (23:20)
--- NOTE | 2023-12-19 00:10 | DVH ---
EXAM: XY CHEST PORTABLE CLINICAL HISTORY: cp TECHNIQUE: Single AP view of the chest WID: COMPARISON: XY CHEST PORTABLE on DOS: 11/26/23, FINDINGS: Lines and tubes: Prior median sternotomy. There is a right PICC with the tip terminating in the low SVC. There is a left atrial appendage clip. Chest: The heart size and pulmonary vasculature is within normal limits. No pleural effusion, pneumothorax, or consolidation. The osseous structures are grossly intact. IMPRESSION: 1. No acute cardiopulmonary abnormality. 2. Placement of a right PICC projecting over the low SVC.
--- NOTE | 2023-12-19 00:55 | ECG ---
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
--- NOTE | 2023-12-19 00:55 | DVH ---
CLINICAL HISTORY: back and chest pain TECHNIQUE: CT angiogram of the chest was performed with intravenous contrast. 3D MIP reconstructed im ages were created and archived on the PACS system. This exam was performed according to our [facility] dose optimization program. Up-to-date CT equipment and radiation dose reduction techniques are ut ilized as appropriate. [Radimetrics Exposure Report] CTDI: [CTDIvol] DLP: 301.37 WID: COMPARISON: None FINDINGS: Lower Neck: Unremarkable Axilla, Mediastinum and Kay: Mildly prominent though normal sized axillary lymph nodes. No mediastin al or hilar lymphadenopathy. Mild wall thickening of the esophagus. Heart and Great Vessels: Prior median sternotomy and CABG. There is mild retrosternal soft tissue thi ckening which may reflect scarring. Normal-sized heart with trace pericardial fluid. The thoracic ao rta is patent. Mild ectasia of the ascending thoracic aorta measuring 3.7 cm on series 601 image 41. There is marked calcified plaque of the [place] coronary arteries. There is mild mixed atherosclerotic plaque within the thoracic aorta. There is no central, segmental, or subsegmental pulmonary artery f illing defects to suggest pulmonary embolism. There is a right PICC in place which terminates in the low SVC. Airway, Lungs and Pleura: The trachea and central airways are patent. Calcified granuloma in the left upper lobe. No airspace consolidation, pleural effusion, or pneumothorax. Chest Wall and Osseous Structures: Slight bony demineralization. There is a moderate compression frac ture of T5 with slight sclerosis along the superior endplate. Multilevel thoracic spondylosis. No de structive osseous lesion. Upper abdomen: Atrophic pancreas. No acute abnormality. IMPRESSION: 1. No evidence of pulmonary embolism or pneumonia. 2. Mild ectasia of the ascending thoracic aorta measuring 3.7 cm. 3. Prior median sternotomy and CABG. 4. Right PICC terminates in the low SVC. 5. Moderate compression fracture of T5 with slight sclerosis of the superior endplate which could be subacute in nature. 1.
--- NOTE | 2023-12-19 00:56 | ECG ---
[facility] Test Date: 2023-12-18 Test Time: 21:57:37 Pat Name: JUAN M STRICKLAND Department: ED Room: 0245T Gender: M Scale Manager: VANESSA : 1955 Requested By: DORIAN LITTLEJOHN Order Number: [id number] Reading MD: Rafael Strickland Measurements Intervals [place] Rate: 89 P: 57 CT: 164 QRS: 78 QRSD: 58 T: 246 QT: 370 QTc: 451 Interpretive Statements Sinus rhythm Left atrial enlargement Nonspecific repol abnormality, diffuse leads Electronically Signed On 12-22-2023 14:27:13 PDT by Rafael Strickland Please click the below link to view image of tracing.
--- NOTE | 2023-12-19 01:37 | ED.PDOC ---
Departure 1 Departure Time of Disposition: 01:36 (Patient presented with chest pain that was concerning for possible STEMI, ACS, PE, Pneumonia, Muscle Strain, COPD, Dissection. Data: 1. I ordered and reviewed the result of at least 3 labs including a CBC, BMP, and Troponin. 2. I independently interpreted the following tests: EKG which shows _ sinus arrhythmia and Chest X-ray which shows benign chest.Risk:This patient has a high risk of morbidity due to further diagnostic testing or treatment and may suffer from an acute cardiac or respiratory disorder. Workup reveals concern for ACS and patient should be admitted for further workup and possible expert consultation. ) Impression: Primary Impression: Acute chest pain Additional Impressions: Anemia Qualified Codes: D64.9 - Anemia, unspecified Cellulitis of right foot Disposition: ADMITTED INPATIENT Admit to: Med Surg Condition: Serious Critical Care Note Critical Care Time?: Yes Critical care comment: Active chest pain Authorized and Performed by: Ashli Doss MD Total critical care time: Approximately 38 minutes Due to a high probability of clinically significant, life threatening deterioration, the patient required my highest level of preparedness to intervene emergently and I personally spent this critical care time directly and personally managing the patient. This critical care time included obtaining a history; examining the patient; pulse oximetry; ordering and review of studies; arranging urgent treatment with development of a management plan; evaluation of patient's response to treatment; frequent reassessment; and, discussions with other providers. This critical care time was performed to assess and manage the high probability of imminent, life-threatening deterioration that could result in multi-organ failure. It was exclusive of separately billable procedures and treating other patients and teaching time. Please see my other sections and the rest of the note for further information on patient assessment and treatment. ASHLI DOSS MD Dec 19, 2023 01:37
[2023-12-19] MEDS: ONDANSETRON HCL 4 MG/2 ML VIAL IV ONE (02:34)
[2023-12-19] MEDS: MORPHINE SULFATE 4 MG/ML SYR/VIAL IV ONE (02:35)
--- NOTE | 2023-12-19 03:29 | DVHHP2 ---
History of Present Illness Reason for Visit: Chest pain History of Present Illness 68-year-old male presents for evaluation of chest pain. Patient reports a one day history of developing substernal sharp chest pain that radiates to his back. He states the pain is constant. Currently patient rates the pain at 7/10 intensity. He also reports having an episode of nausea with emesis. Denies shortness or breath. No cough or fever. Patient has a chronic wound to his right foot which he is currently being treated with cefepime and vancomycin by home health. No other acute complaints reported. Past Medical History CVA, COPD, CAD, diabetes mellitus, [place] and hypertension Past Surgical History PTCA, right foot surgery and CABG Family History Noncontributory Smoke: No ALCOHOL: none Drugs: None Lives: with Family Review of Systems Review of Systems Review of systems are currently negative otherwise dressing HPI. Allergies: Coded Allergies: NO KNOWN ALLERGIES (Unverified , 12/05/22) Exam Vital Signs Vital Signs Date Time Temp Pulse Resp B/P (MAP) Pulse Ox O2 Delivery O2 Flow Rate FiO2 12/19/23 02:35 70 18 121/40 12/18/23 22:11 98.0 100 98.0 Exam Gen: 68-year-old male in no apparent distress Skin: Warm, dry, normal color and texture, no rash. HEENT: Normocephalic atraumatic, mucous membranes moist and pink. Neck: Cervical and supraclavicular nodes normal without enlargement, trachea is midline, thyroid gland is normal without masses. Pulmonary: Clear to auscultation and percussion bilaterally. Cardiac: Regular rate and rhythm. No murmur Abdomen: Soft, nontender, nondistended, bowel sounds present all 4 quadrants, no guarding, no rigidity, no organomegaly. Extremities: No cyanosis, clubbing, right foot wound with mild cellulitis Neuro: Cranial nerves II through XII grossly intact, normal affect and speech, no focal motor deficits. Labs/Xrays ORDERING PHYSICIAN: DORIAN LITTLEJOHN MD PROCEDURE(s): CXRP - CHEST PORTABLE REASON: cp ORDER NUMBER(s): [id number], ACCESSION NUMBER(s): [id number] EXAM: XY CHEST PORTABLE CLINICAL HISTORY: cp TECHNIQUE: Single AP view of the chest WID: COMPARISON: XY CHEST PORTABLE on DOS: 11/26/23, FINDINGS: Lines and tubes: Prior median sternotomy. There is a right PICC with the tip terminating in the low SVC. There is a left atrial appendage clip. Chest: The heart size and pulmonary vasculature is within normal limits. No pleural effusion, pneumothorax, or consolidation. The osseous structures are grossly intact. IMPRESSION: 1. No acute cardiopulmonary abnormality. 2. Placement of a right PICC projecting over the low SVC. RING PHYSICIAN: DORIAN LITTLEJOHN MD PROCEDURE(s): CTACH - CT ANGIO CHEST CONTRAST REASON: back and chest pain ORDER NUMBER(s): [id number], ACCESSION NUMBER(s): [id number] CLINICAL HISTORY: back and chest pain TECHNIQUE: CT angiogram of the chest was performed with intravenous contrast. 3D MIP reconstructed images were created and archived on the PACS system. This exam was performed according to our departmental dose optimization program. Up-to-date CT equipment and radiation dose reduction techniques are utilized as appropriate. [Radimetrics Exposure Report] CTDI: [CTDIvol] DLP: 301.37 WID: COMPARISON: None FINDINGS: Lower Neck: Unremarkable Axilla, Mediastinum and Kay: Mildly prominent though normal sized axillary lymph nodes. No mediastinal or hilar lymphadenopathy. Mild wall thickening of the esophagus. Heart and Great Vessels: Prior median sternotomy and CABG. There is mild retrosternal soft tissue thickening which may reflect scarring. Normal-sized heart with trace pericardial fluid. The thoracic aorta is patent. Mild ectasia of the ascending thoracic aorta measuring 3.7 cm on series 601 image 41. There is marked calcified plaque of the [place] coronary arteries. There is mild mixed atherosclerotic plaque within the thoracic aorta. There is no central, segmental, or subsegmental pulmonary artery filling defects to suggest pulmonary embolism. There is a right PICC in place which terminates in the low SVC. Airway, Lungs and Pleura: The trachea and central airways are patent. Calcified granuloma in the left upper lobe. No airspace consolidation, pleural effusion, or pneumothorax. Chest Wall and Osseous Structures: Slight bony demineralization. There is a moderate compression fracture of T5 with slight sclerosis along the superior endplate. Multilevel thoracic spondylosis. No destructive osseous lesion. Upper abdomen: Atrophic pancreas. No acute abnormality. IMPRESSION: 1. No evidence of pulmonary embolism or pneumonia. 2. Mild ectasia of the ascending thoracic aorta measuring 3.7 cm. 3. Prior median sternotomy and CABG. 4. Right PICC terminates in the low SVC. 5. Moderate compression fracture of T5 with slight sclerosis of the superior endplate which could be subacute in nature. 1. Labs Test 12/19/23 00:21 12/18/23 21:12 Range/Units Troponin I High Sensitivity 10 </=54 ng/L White Blood Count 8.2 4.4-10.8 10^3/uL Red Blood Count 3.33 L 4.5-5.90 10^6/uL Hemoglobin 10.2 L 13.5-17.5 g/dL Hematocrit 31.6 L 41.0-53.0 % Mean Corpuscular Volume 94.9 80.0-100.0 fL Mean Corpuscular Hemoglobin 30.7 28.0-32.0 pg Mean Corpuscular Hemoglobin Concent 32.3 32.0-36.0 g/dL Red Cell Distribution Width 16.7 H 11.8-14.3 % Platelet Count 190 140-450 10^3/uL Mean Platelet Volume 9.0 6.9-10.8 fL Neutrophils (%) (Auto) 37.0-80.0 % Lymphocytes (%) (Auto) 10.0-50.0 % Monocytes (%) (Auto) 0.0-12.0 % Basophils (%) (Auto) 0.0-2.0 % Neutrophils # (Auto) 1.6-8.6 10 ^3/uL Lymphocytes # (Auto) 0.4-5.4 10 ^3/uL Monocytes # (Auto) 0-1.3 10 ^3/uL Differential Total Cells Counted 100.0 100 Neutrophils % (Manual) 36 L 37.0-80.0 Band Neutrophils % (Manual) 0 Lymphocytes % (Manual) 56 H 10.0-50.0 Monocytes % (Manual) 6 0-12 Eosinophils % (Manual) 2 0-7 Basophils % (Manual) 0 0.0-2.0 Metamyelocytes % (manual) 0 Myelocytes % (Manual) 0 Promyelocytes % (Manual) 0 Blast Cells % (Manual) 0 Reactive Lymphocytes 0 Platelet Estimate Adequate Red Blood Cell Morphology Normal Prothrombin Time 10.9 9.3-11.8 sec Prothrombin Time INR 1.03 0.9-1.15 Activated Partial Thromboplast Time 25.2 24.5-34.5 SEC Sodium Level 138 136-145 mmol/L Potassium Level 4.2 3.5-5.1 mmol/L Chloride Level 107 98-107 mmol/L Carbon Dioxide Level 22 20-31 mmol/L Anion Gap 9 5-15 Blood Urea Nitrogen 17 9-23 mg/dL Creatinine 0.91 0.700-1.30 mg/dL Glomerular Filtration Rate Calc 92 >90 mL/min BUN/Creatinine Ratio 18.7 10.0-20.0 Serum Glucose 328 H 74-106 mg/dL Calcium Level 9.9 8.7-10.4 mg/dL Assessment/Plan Assessment/Plan Assessment Unstable angina Status post CABG History of CVA Diabetes mellitus Hypertension Right foot wound Plan Admit the patient to telemetry to the hospitalist Cardiology consultation ACS protocol Wound consult Continue cefepime and vancomycin for right foot wound Continue treatment per orders. Plan discussed with: Patient Date of Service: Dec 19, 2023 Billing Provider: JESSICA GARCIA Common Visit Codes: [id number] INP/OBS CARE (HIGH) JESSICA GARCIA Dec 19, 2023 03:29
[2023-12-19] MEDS ORDERED: ACETAMINOPHEN 325 MG TAB PO PRN (03:30)
[2023-12-19] MEDS ORDERED: VANCOMYCIN PER PHARMACY 0 MG IV SCH (03:30)
[2023-12-19] MEDS ORDERED: MORPHINE SULFATE INJ 2 MG/ml SYRG IV PRN (03:30)
[2023-12-19] MEDS ORDERED: ALBUTEROL SULF 2.5 MG/0.5ML(0.5%) NEB SOLN NEB PRN (03:30)
[2023-12-19] MEDS ORDERED: ONDANSETRON HCL 4 MG/2 ML VIAL IV PRN (03:30)
[2023-12-19] MEDS ORDERED: NITROGLYCERIN 0.4 MG SL TAB SL PRN (03:30)
[2023-12-19] MEDS ORDERED: DEXTROSE (50%) 50ML SYRG IV PRN (03:30)
[2023-12-19 03:38] VITALS: BP 121/40; PULSE 70; RESP 18; TEMP 98; O2SAT 100
[2023-12-19] MEDS: VANCOMYCIN 1GM/200ML PREMIX IV ONE (04:10)
[2023-12-19] MEDS: CEFEPIME 1GM/ 50ML 50 ML IV SCH (06:31)
[2023-12-19] MEDS: ACCU-CHEK COMFORT CURVE STRIP VI SCH (07:00)
[2023-12-19] MEDS: InsuLIN REG 1unit/0.01ml Soln (100units/ml) SC SCH (07:03)
[2023-12-19 07:18] VITALS: O2SAT 96
[2023-12-19 07:28] VITALS: PULSE 71; RESP 16; O2SAT 100
[2023-12-19] MEDS: HYDROcodone-ACET 5/325MG TAB PO PRN (07:57)
[2023-12-19] MEDS: CLOPIDOGREL BISULFATE 75 MG TAB PO SCH (09:40)
[2023-12-19] MEDS: ENOXAPARIN SOD 40 MG/0.4 ML SYRINGE SC SCH (09:41)
--- NOTE | 2023-12-19 17:55 | DVHPN2 ---
Subjective 68-year-old male presents for evaluation of chest pain. Patient reports a one day history of developing substernal sharp chest pain that radiates to his back. He states the pain is constant. Currently patient rates the pain at 7/10 intensity. He also reports having an episode of nausea with emesis. Denies shortness or breath. No cough or fever. Patient has a chronic wound to his right foot which he is currently being treated with cefepime and vancomycin by home health. No other acute complaints reported. update - 12/18 - pain improving. still feeling similar but milder level pain. no n/v feeling anymore. Reviewed: H&P Changes from previous H/P or p: No Changes General: Per HPI Objective Vitals Vital Signs Date Time Temp Pulse Resp B/P (MAP) Pulse Ox O2 Delivery O2 Flow Rate FiO2 12/19/23 16:00 70 18 142/40 (74) 98 12/19/23 07:28 Room Air* 0 21 12/19/23 07:28 98.1 98.1 Intake/Output Intake and Output 12/19/23 07:00 Intake Total 200 ml Balance 200 ml Intake IV Total 200 ml Exam GEN: Healthy appearing, well-developed, NAD. HEENT: NC/AT; MMM. CV: RRR, no m/r/g. chest midsternal scar from CABG LUNGS: CTAB, no w/r/c. ABD: Soft, NT/ND, NBS, no masses or organomegaly. EXT: skin Warm, well perfused. no rashes. No clubbing, cyanosis, or edema. right leg wound, dressing CDI. NEURO: Ambulating with no limitations. No focal deficits. Medications Current Medications Medications Dose Ordered Sig/Chante Route Start Time Stop Time Status Last Admin Dose Admin Albuterol 2.5 mg Q6HPRN PRN NEB 12/19/23 03:30 Atorvastatin Calcium 40 mg HS PO 12/19/23 22:00 Clopidogrel Bisulfate 75 mg DAILY PO 12/19/23 10:00 12/19/23 09:40 75 MG Cefepime HCl 50 ml @ 12.5 mls/hr Q12HR@0600,1800 IV 12/19/23 06:00 12/19/23 06:31 12.5 MLS/HR Vancomycin HCl 0 ml @ 0 mls/hr UD IV 12/19/23 03:30 Diagnostic Test (Pha) 1 strip ACHS 12/19/23 07:00 12/19/23 17:17 1 STRIP Insulin Human Regular ACHS SC 12/19/23 07:00 12/19/23 11:42 8 UNITS Dextrose 50 ml UD PRN IV 12/19/23 03:30 Acetaminophen/ Hydrocodone Bitart 1 tab Q4HP PRN PO 12/19/23 03:30 12/19/23 17:21 1 TAB Ondansetron HCl 4 mg Q4HP PRN IV 12/19/23 03:30 Enoxaparin Sodium 40 mg DAILY SC 12/19/23 10:00 12/19/23 09:41 40 MG Acetaminophen 650 mg Q6HP PRN PO 12/19/23 03:30 Nitroglycerin 0.4 mg Q5MINP PRN SL 12/19/23 03:30 Morphine Sulfate 2 mg Q30M PRN IV 12/19/23 03:30 Vancomycin HCl 200 ml @ 200 mls/hr Q18H IV 12/19/23 22:00 Laboratory Results Laboratory Tests 12/18/23 21:12 Chemistry Test 12/18/23 21:12 Calcium Level 9.9 mg/dL (8.7-10.4) Coagulation Test 12/18/23 21:12 Prothrombin Time 10.9 sec (9.3-11.8) Prothrombin Time INR 1.03 (0.9-1.15) Activated Partial Thromboplast Time 25.2 SEC (24.5-34.5) Labs and/or images reviewed: Labs reviewed by me, Image(s) reviewed by me Assessment/Plan Assessment/Plan update - 12/18 - continues having vague sternal chest pain. more controlled vs admit #unstable angina # Hx CAD s/po CABG #PAD - radiate to back - CTA neg for dissection - PAD. angiogram LE - Echo 11/27/23 - EF 55% - started on ACS protocol # right leg wound #osteomyelitis R foot - 11/17/23 - angiogram w intervention to R PAD : " revascularization of the right lower extremity below the distal right superficial femoral. Previous site of stent placement in the popliteal region was severely diseased greater than 90% narrowing, status post thrombectomy with shockwave balloon with drug-eluting balloon angioplasty," - continue iv abx cefepime/vanc - wound consult #HTN - cont home meds #Hx CVA # DM - SSI w accuchecks diet - DM/cardiac dvt ppx - lovenox gi ppx - ritesh diet med/tele Plan discussed with: Patient My Orders Orders - SARA THRASHER MD Procedure Category Date Status Time *Consult Dr. Queen CONS 12/19/23 Transmitted [place] 13:41 Date of Service: Dec 19, 2023 Billing Provider: SARA THRASHER MD Common Visit Codes: [id number] INP/OBS CARE(HIGH) SARA THRASHER MD Dec 19, 2023 17:54
[2023-12-19 18:05] VITALS: O2SAT 98
[2023-12-19 21:00] VITALS: BP 130/88; PULSE 85; RESP 19; TEMP 98.4; O2SAT 100
[2023-12-19] MEDS: VANCOMYCIN 1GM/200ML PREMIX 200 ML IV SCH (22:30)
[2023-12-19] MEDS: ATORVASTATIN 20 MG TAB PO SCH (22:30)
[2023-12-19 23:07] VITALS: BP 130/88; PULSE 85; RESP 19; TEMP 98.4; O2SAT 100
[2023-12-20] VITALS (12 sets, daily range): BP systolic 97–134; BP diastolic 40–76; PULSE 64–76; RESP 16–22; TEMP 97.6–98.4; O2SAT 97–100
[2023-12-20 06:08] LABS: Basophils # (auto) 0.1 10 ^3/uL (0-0.2); Basophils % (auto) 0.6 % (0.0-2.0); Eosinophils # (auto) 0.5 10 ^3/uL (0-0.8); Eosinophils % (auto) 5.1 % (0.0-7.0); Hematocrit 31.7 % (41.0-53.0); Hemoglobin 10.5 g/dL (13.5-17.5); Lymphocytes # (auto) 5.3 10 ^3/uL (0.4-5.4); Lymphocytes % (auto) 54.7 % (10.0-50.0); Mean Corpuscular Hemoglobin 31.2 pg (28.0-32.0); Mean Corpuscular Hgb Conc. 33.3 g/dL (32.0-36.0); Mean Corpuscular Volume 93.8 fL (80.0-100.0); Monocytes # (auto) 0.7 10 ^3/uL (0-1.3); Monocytes % (auto) 7.5 % (0.0-12.0); Neutrophils # (auto) 3.1 10 ^3/uL (1.6-8.6); Neutrophils % (auto) 32.1 % (37.0-80.0); Platelet Count (auto) 199 10^3/uL (140-450); Red Blood Cells 3.38 10^6/uL (4.5-5.90); Red Cell Distribution Width 16.6 % (11.8-14.3); White Blood Cell 9.8 10^3/uL (4.4-10.8)
[2023-12-20 06:12] LABS: Chloride 106 mmol/L (98-107); Potassium 5.1 mmol/L (3.5-5.1); Sodium 136 mmol/L (136-145)
[2023-12-20 06:13] LABS: Anion Gap 7 (5-15); Calcium 9.7 mg/dL (8.7-10.4); Carbon Dioxide 23 mmol/L (20-31)
[2023-12-20 06:29] LABS: Blood Urea Nitrogen 29 mg/dL (9-23); Glucose 157 mg/dL (74-106)
--- NOTE | 2023-12-20 14:31 | DVHPN2 ---
Progress Note - Dictate Date Seen: Dec 19, 2023 Medical Necessity Reason Pt with a Central, PICC or Fol: No Subjective PT WITH SX OF CHEST PAIN ECG NEGATIVE TROPONIN X3 NEGATIVE PAIN IS DESCRIBED CONSTANT RADIATING TO THE SHOULDERS CTA CHEST NEGATIVE MILD AORTIC ROOT DILATATION NO DISSECTION NO ANEURYSM L1 VERTEBRAL COMPRESSION FRACTURE PHM: OSTEOMYELITIS UNDER WENT DEBRIDEMENT S/P LE REVASCULARIZATION DIABETES VASCULOPATHY NEUROPATHY HTN HYPERLIPIDEMIA HYPERKALEMIA vital signs Vital Sign Date Time Temp Pulse Resp B/P (MAP) Pulse Ox O2 Delivery O2 Flow Rate FiO2 12/20/23 13:00 98.4 71 19 104/53 (70) 99 98.4 12/20/23 09:42 Room Air 0.0 12/20/23 09:42 21 Total Intake and Output 12/19/23 12/19/23 12/20/23 14:59 22:59 06:59 Intake Total 50.0 ml 500 ml Output Total 2 ml Balance 50.0 ml 498 ml medications Current Medications Medications Dose Ordered Sig/Chante Route Start Time Stop Time Status Last Admin Dose Admin Albuterol 2.5 mg Q6HPRN PRN NEB 12/19/23 03:30 Atorvastatin Calcium 40 mg HS PO 12/19/23 22:00 12/19/23 22:30 40 MG Clopidogrel Bisulfate 75 mg DAILY PO 12/19/23 10:00 12/20/23 10:23 75 MG Cefepime HCl 50 ml @ 12.5 mls/hr Q12HR@0600,1800 IV 12/19/23 06:00 12/20/23 06:50 12.5 MLS/HR Vancomycin HCl 0 ml @ 0 mls/hr UD IV 12/19/23 03:30 Diagnostic Test (Pha) 1 strip ACHS 12/19/23 07:00 12/20/23 11:00 1 STRIP Insulin Human Regular ACHS SC 12/19/23 07:00 12/20/23 12:03 4 UNITS Dextrose 50 ml UD PRN IV 12/19/23 03:30 Acetaminophen/ Hydrocodone Bitart 1 tab Q4HP PRN PO 12/19/23 03:30 12/20/23 11:01 1 TAB Ondansetron HCl 4 mg Q4HP PRN IV 12/19/23 03:30 Enoxaparin Sodium 40 mg DAILY SC 12/19/23 10:00 12/20/23 10:22 40 MG Acetaminophen 650 mg Q6HP PRN PO 12/19/23 03:30 Nitroglycerin 0.4 mg Q5MINP PRN SL 12/19/23 03:30 Morphine Sulfate 2 mg Q30M PRN IV 12/19/23 03:30 Vancomycin HCl 200 ml @ 200 mls/hr Q18H IV 12/19/23 22:00 12/19/23 22:30 200 MLS/HR laboratory and microbiology Laboratory Tests 12/20/23 05:35 Test 12/20/23 05:35 Range/Units Serum Glucose 157 #H 74-106 mg/dL Problem List CG NEGATIVE TROPONIN X3 NEGATIVE PAIN IS DESCRIBED CONSTANT RADIATING TO THE SHOULDERS CTA CHEST NEGATIVE MILD AORTIC ROOT DILATATION NO DISSECTION NO ANEURYSM L1 VERTEBRAL COMPRESSION FRACTURE PHM: OSTEOMYELITIS UNDER WENT DEBRIDEMENT S/P LE REVASCULARIZATION DIABETES VASCULOPATHY NEUROPATHY HTN HYPERLIPIDEMIA HYPERKALEMIA ANEMIA Assessment/Plan BNP NEGATIVE ECG NO ACUTE CHANGES HE STATES HIS PAIN IS IN HIS FOOT DAPT H/H IS TRENDING DOWN CONSIDER IRON REPLACEMENT CONSIDER GI WORKUP CORRECT HYPERKALEMIA Plan discussed with: Patient AGUILA LOPEZ MD Dec 20, 2023 14:31
[2023-12-20] MEDS: CEFEPIME 1GM/ 50ML 50 ML IV SCH (15:17)
[2023-12-20] MEDS ORDERED: BACL10TA PO (17:14)
--- NOTE | 2023-12-20 17:21 | DVHDS2 ---
Discharge Summary Date of Admission Dec 19, 2023 at 03:16 Date of Discharge: Dec 20, 2023 Admitting Diagnosis Chest pain rule out ACS/NV Labs/Diagnostic Data: Laboratory Results Test 12/20/23 11:02 12/20/23 05:35 12/19/23 00:21 12/18/23 21:12 POC Glucose 220 mg/dl (70-106) White Blood Count 9.8 10^3/uL (4.4-10.8) Red Blood Count 3.38 10^6/uL (4.5-5.90) Hemoglobin 10.5 g/dL (13.5-17.5) Hematocrit 31.7 % (41.0-53.0) Mean Corpuscular Volume 93.8 fL (80.0-100.0) Mean Corpuscular Hemoglobin 31.2 pg (28.0-32.0) Mean Corpuscular Hemoglobin Concent 33.3 g/dL (32.0-36.0) Red Cell Distribution Width 16.6 % (11.8-14.3) Platelet Count 199 10^3/uL (140-450) Mean Platelet Volume 8.9 fL (6.9-10.8) Neutrophils (%) (Auto) 32.1 % (37.0-80.0) Lymphocytes (%) (Auto) 54.7 % (10.0-50.0) Monocytes (%) (Auto) 7.5 % (0.0-12.0) Eosinophils (%) (Auto) 5.1 % (0.0-7.0) Basophils (%) (Auto) 0.6 % (0.0-2.0) Neutrophils # (Auto) 3.1 10 ^3/uL (1.6-8.6) Lymphocytes # (Auto) 5.3 10 ^3/uL (0.4-5.4) Monocytes # (Auto) 0.7 10 ^3/uL (0-1.3) Eosinophils # (Auto) 0.5 10 ^3/uL (0-0.8) Basophils # (Auto) 0.1 10 ^3/uL (0-0.2) Nucleated Red Blood Cells 0.0 % Sodium Level 136 mmol/L (136-145) Potassium Level 5.1 mmol/L (3.5-5.1) Chloride Level 106 mmol/L (98-107) Carbon Dioxide Level 23 mmol/L (20-31) Anion Gap 7 (5-15) Blood Urea Nitrogen 29 mg/dL (9-23) Creatinine 1.16 mg/dL (0.700-1.30) Glomerular Filtration Rate Calc 69 mL/min (>90) BUN/Creatinine Ratio 25.0 (10.0-20.0) Serum Glucose 157 mg/dL (74-106) Calcium Level 9.7 mg/dL (8.7-10.4) Troponin I High Sensitivity 10 ng/L (</=54) Differential Total Cells Counted 100.0 (100) Neutrophils % (Manual) 36 (37.0-80.0) Band Neutrophils % (Manual) 0 Lymphocytes % (Manual) 56 (10.0-50.0) Monocytes % (Manual) 6 (0-12) Eosinophils % (Manual) 2 (0-7) Basophils % (Manual) 0 (0.0-2.0) Metamyelocytes % (manual) 0 Myelocytes % (Manual) 0 Promyelocytes % (Manual) 0 Blast Cells % (Manual) 0 Reactive Lymphocytes 0 Platelet Estimate Adequate Red Blood Cell Morphology Normal Prothrombin Time 10.9 sec (9.3-11.8) Prothrombin Time INR 1.03 (0.9-1.15) Activated Partial Thromboplast Time 25.2 SEC (24.5-34.5) Other Laboratory Tests 12/20/23 05:35 Brief Hx & Hospital Course: 68-year-old male with PMH CAD s/po CABG, right foot osteomyelitis, PAD S/P PTCA R s.fem , hypertension, history CVA, diabetes presents for evaluation of chest pain. Patient reports a one day history of developing substernal sharp chest pain that radiates to his back. He states the pain is constant. reports having an episode of nausea with emesis. Patient has a chronic wound to his right foot which he is currently being treated with cefepime and vancomycin by home health. On admit,CTA neg for dissection, troponin negative, EKG without any concerning changes.. Concern for unstable angina, patient is started on ACS. Cardiology consulted Dr. Queen, is not concerned for ACS or NV. IV antibiotics for right foot osteomyelitis are continued (cefepime/vancomycin), wound care consulted. Patient is stable, chest pain improving. Appears chest pain is more related to back pain, and back pain is relieved upon palpation, this is likely musculoskeletal pain. Patient is stable to follow up outpatient with plan below diagnosis: chest pain with ruledout NV and ACS; musculoskeletal pain probable; esophageal spasms possible, right foot osteomyelitis Visitation and planning required 35 minutes discharge plan - likely back muscle pain - baclofen nightly. can try chiropracter, defer to patients self preference - PCP to follow-up and consider gi esophageal source - resume IV Abx for ongoing R foot infection. regular planned f/u with ux developer designer. - regular f/u with cardiology - continue other home medications Condition at Discharge: Fair Final Diagnosis/Problems List chest pain with ruled-out NV Discharge Disposition: Home Discharge Instruct/Medications Diet: Cardiac 2g Na,low cholest Activity: No Restrictions, As Tolerated Follow Up/Referral: PCP, cardiology dr queen Medications: as below Discharge Statement: "Patient was advised to return to the ER or call 911 if any headaches, dizziness, shortness of breath, chest pain, abdominal pain, bleeding, fevers, or worsening of medical condition. Patient was counseled about treatment plan, medications, possible side effects, patientverbalized understanding. All questions were answered to the best of my ability. This discharge took greater then 30 minutes in planning, reviewing documentation, counseling the patient, and discussing with other team members." ASSESSMENT ASSESSMENT Hospital Course As above Assessment chest pain with ruledout NV and ACS; musculoskeletal pain probable; esophageal spasms possible, right foot osteomyelitis Date of Service: Dec 20, 2023 Billing Provider: SARA THRASHER MD Common Visit Codes: [id number] DISCH DAY >30min SARA THRASHER MD Dec 20, 2023 17:21
[2023-12-20] MEDS ORDERED: VANCOMYCIN 1GM/200ML PREMIX 200 ML IV SCH (20:00)
== END 2023-12-20 20:30 | disposition home health service (06) | DRG 303 ==
LOC: ER 20:57 → EDBD 20:57 → TELE 12-19 03:16 → TELE-EAST 12-19 21:58
PROVIDERS: ADMIT Nurse Practitioner; ATTEND Student in an Organized Health Care Education/Training Program
DX: I25.110 Atherosclerotic heart disease of native coronary artery with unstable angina pectoris (principal); L03.115 Cellulitis of right lower limb; M86.8X7 Other osteomyelitis, ankle and foot; I10 Essential (primary) hypertension; D64.9 Anemia, unspecified; E11.69 Type 2 diabetes mellitus with other specified complication; E11.51 Type 2 diabetes mellitus with diabetic peripheral angiopathy without gangrene; J44.9 Chronic obstructive pulmonary disease, unspecified; E11.40 Type 2 diabetes mellitus with diabetic neuropathy, unspecified; K22.4 Dyskinesia of esophagus; E87.5 Hyperkalemia; Z98.61 Coronary angioplasty status; Z86.73 Personal history of transient ischemic attack (TIA), and cerebral infarction without residual deficits; Z95.1 Presence of aortocoronary bypass graft; Z79.82 Long term (current) use of aspirin; Z79.899 Other long term (current) drug therapy
CPT/HCPCS: 36415; 71045; 71275; 80048; 82962; 84484; 85007; 85025; 85027; 85610; 85730; 87081; 93005; 96374; 96375; 99291; G0378; J1815; J2405

== ENCOUNTER 2023-12-21 17:42 | Inpatient (IN) | payer OTHER, MEDICAID ==
[~2023-12-21] VITALS: Ht 177.8 cm; Wt 58.0 kg
[~2023-12-21 17:42] MED LIST changes: +BACL10TA PO
--- NOTE | 2023-12-21 18:17 | ED.PDOC ---
HPI Comments HPI: Poor Historian. 68-year-old male brought in by ambulance from home. Patient was just discharged from the hospital this morning for upstairs. Patient after he went home he started having recurrence of his chest pain which he was just admitted to the hospital for. Pain is midsternal radiates to the back intermittent no specific alleviating or precipitating factors. No associated symptoms. Past Medcial History: Diabetes, hyperlipidemia, VA, schizoaffective disorder Past Surgical History: CABG REVIEW OF SYSTEMS: CONSTITUTIONAL: Denies acute: fever, diaphoresis, chills, generalized weakness. HEAD: Denies acute: headache, photophobia Eyes: Denies acute: Double vision, vision loss, eye pain, eye discharge. EARS: Denies acute: tinnitus, hearing loss, ear discharge, ear pain, THROAT: Denies acute: sore throat, swelling, difficulty swallowing , pain with swallowing, change in voice. NECK: Denies acute: neck pain, neck swelling, stiff neck. HEART: Denies acute : palpitations, LUNGS: Denies acute: SOB, wheezing, cough, hemoptysis ABDOMEN: Denies acute: abdominal pain, Nausea, Vomiting, diarrhea, melena , hematemesis, hematochezia SKIN: Denies acute: rash, redness, lesions, itchiness. EXTREMITIES: Denies acute: calf pain, numbness, tingling, weakness, denies pain in extremity. Denies acute: Low back pain. Neuro: Denies acute: focal neurological deficit, motor or sensory focal neurological deficit, tremors, seizure like activity, confusion, dizziness, change in mental status, loss of bowel or bladder function, cauda equina like symptoms. : Denies acute: dysuria, hematuria, flank pain, increase in urinary frequency. PSYCH: Denies acute: hallucination, suicidal ideation, homicidal ideation. PHYSICAL EXAM: General: no acute distress, awake and alert. Head: normocephalic, atraumatic. Neck: supple, trachea is midline, no swelling. Throat: Normal phonation. Eyes:, no erythema, no purulent discharge, no proptosis, no icterus. Heart: regular rate, regular rhythm, no significant murmur appreciated. Lungs: no apparent respiratory distress, Able to speak in full sentences. No wheezing, no rhonchi, no crackles. No stridors Clear to auscultation bilaterally. Abdomen: non tender to palpation, non distended, soft, no guarding, no rebound, + bowel sounds. Neuro: Awake, Alert, oriented to name, self, situation, follows commands GCS=15. Speech is normal. Skin: no petechia, no purpura, no cyanosis, non-pale, not jaundice. Lower extremities: --no - Pitting edema no deformity, no focal swelling, no calf TTP. Makes eye contact. moves all four extremities. Face: no apparent facial droop. Patient is seen ambulating in the emergency department independently. Chief Complaint: Chest Pain Time Seen by MD: 17:46 Primary Care Provider: [place]EE[place] Reviewed Notes: Nurses Notes, Medications, Allergies Allergies: Coded Allergies: NO KNOWN ALLERGIES (Unverified , 12/05/22) Home Meds Active Scripts Baclofen (Baclofen) 10 Mg Tab, 10 MG PO QPM for 5 Days, #5 TAB Prov:SARA THRASHER MD 12/20/23 Ergocalciferol (VITAMIN D 08611 UNIT) 50,[address] [place], [address] UNIT PO Q7D for 90 Days, #12 CAP Prov:SEBLE CASTANEDA RESIDENT 12/01/23 Clopidogrel Bisulfate (Plavix) 75 Mg Tab, 1 TAB PO DAILY, #90 TAB 1 Refill Prov:NAZIA PERRY MD 11/18/23 Hydrocodone-Acetaminophen (Hydrocodone Bitartrate/AC 5-325 mg) 1 Tab Tab, 1 TAB PO QID PRN, #30 TAB Prov:NAZIA PERRY MD 11/18/23 Reported Medications Aspirin (Chewable Aspirin) 81 Mg Chw, 81 MG PO DAILY 11/11/23 Atorvastatin Calcium (ATORVASTATIN CALCIUM) 80 Mg Tab, 80 MG PO DAILY 11/11/23 Information Source: Patient Mode of Arrival: EMS Past Medical History PAST MEDICAL HISTORY: CAD, COPD, CVA, DM, HTN, VA Surgical History: CABG, PTCA Family History Family History: Reviewed,noncontributory to illness, Unknown Social History Smoker: Non-Smoker Alcohol: Denies ETOH Use Drugs: Denies Drug Use Lives In: Home Was a procedure done? Was a procedure done?: No CP Differential Dx Differential Diagnosis: N/A Differential Diagnosis: Other (Ddx include but not limitied to gastritis, musculoskeletal pain, radiculopathy, atypical chest pain, dissection, aneurysm, ACS, unstable angina, hiatal hernia, GERD, anxiety, costochondritis, PE, pneumothroax, neoplasm, cardiac ischemia, drug abuse, anemia.) X-Ray, Labs, Meds, VS Vital Signs Date Time Temp Pulse Resp B/P (MAP) Pulse Ox O2 Delivery O2 Flow Rate FiO2 12/21/23 21:43 155/51 12/21/23 21:39 97.6 92 18 155/51 (85) 100 97.6 12/21/23 17:49 89 12/21/23 17:46 98.9 90 18 122/70 (87) 98 Lab Test 12/21/23 21:00 12/21/23 19:10 12/21/23 17:59 Range/Units Troponin I High Sensitivity 9 8 9 </=54 ng/L White Blood Count 7.1 # 4.4-10.8 10^3/uL Red Blood Count 3.31 L 4.5-5.90 10^6/uL Hemoglobin 10.2 L 13.5-17.5 g/dL Hematocrit 31.2 L 41.0-53.0 % Mean Corpuscular Volume 94.1 80.0-100.0 fL Mean Corpuscular Hemoglobin 30.8 28.0-32.0 pg Mean Corpuscular Hemoglobin Concent 32.7 32.0-36.0 g/dL Red Cell Distribution Width 17.0 H 11.8-14.3 % Platelet Count 191 140-450 10^3/uL Mean Platelet Volume 8.9 6.9-10.8 fL Neutrophils (%) (Auto) 38.5 37.0-80.0 % Lymphocytes (%) (Auto) 50.6 H 10.0-50.0 % Monocytes (%) (Auto) 7.5 0.0-12.0 % Eosinophils (%) (Auto) 3.2 0.0-7.0 % Basophils (%) (Auto) 0.2 0.0-2.0 % Neutrophils # (Auto) 2.7 1.6-8.6 10 ^3/uL Lymphocytes # (Auto) 3.6 0.4-5.4 10 ^3/uL Monocytes # (Auto) 0.5 0-1.3 10 ^3/uL Eosinophils # (Auto) 0.2 0-0.8 10 ^3/uL Basophils # (Auto) 0 0-0.2 10 ^3/uL Nucleated Red Blood Cells 0.1 % Prothrombin Time 10.9 9.3-11.8 sec Prothrombin Time INR 1.03 0.9-1.15 Activated Partial Thromboplast Time 25.8 24.5-34.5 SEC Sodium Level 136 136-145 mmol/L Potassium Level 4.7 3.5-5.1 mmol/L Chloride Level 104 98-107 mmol/L Carbon Dioxide Level 25 20-31 mmol/L Anion Gap 7 5-15 Blood Urea Nitrogen 24 H 9-23 mg/dL Creatinine 1.10 0.700-1.30 mg/dL Glomerular Filtration Rate Calc 74 >90 mL/min BUN/Creatinine Ratio 21.8 H 10.0-20.0 Serum Glucose 422 #*H 74-106 mg/dL Calcium Level 9.7 8.7-10.4 mg/dL Magnesium Level 2.0 1.6-2.6 mg/dL Total Bilirubin 0.2 0.2-1.0 mg/dL Aspartate Amino Transferase (AST) 26 13-40 U/L Alanine Aminotransferase (ALT) 57 H 7-40 U/L Alkaline Phosphatase 215 H 46-116 U/L B-Type Natriuretic Peptide 97.17 0-100 pg/mL Total Protein 6.7 5.7-8.2 g/dL Albumin 4.2 3.2-4.8 g/dL Current Medications Medications (Trade) Dose Ordered Sig/Chante Route Start Time Stop Time Status Last Admin Nitroglycerin (Ntrostat Sublingual) 0.4 mg ONCE ONCE SL 12/21/23 21:35 12/21/23 21:36 DC 12/21/23 21:43 Acetaminophen/ Hydrocodone Bitart (Dania 5/325MG Tab) 1 tab ONCE ONCE PO 12/21/23 22:00 12/21/23 22:01 DC 12/21/23 22:[address] [address] Ph: [phone] DIAGNOSTIC IMAGING Diagnostic Imaging Report : [id number] Signed PATIENT: JUAN M HARRELL ACCT: [id number] UNIT: [id number] : 1955 LOC: ER ROOM / BED: / AGE / SEX: 68 / M ADM STATUS: REG ER SERVICE 1745 ORDERING PHYSICIAN: ENMA LAROSE MD PROCEDURE(s): CXRP - CHEST PORTABLE REASON: CHEST PAIN ORDER NUMBER(s): [id number], ACCESSION NUMBER(s): [id number] CHEST RADIOGRAPH Indication:CHEST PAIN Technique: Single frontal view of the chest was obtained Comparison: XY CHEST PORTABLE on DOS: 12/18/23, XY CHEST PORTABLE on DOS: 11/26/23, XY CHEST PORTABLE on DOS: 11/17/23 FINDINGS: Lines and Tubes: Right-sided PICC with tip terminating near the cavoatrial junction. Lungs: No focal consolidation. Pleura: No effusion. No pneumothorax. Cardiomediastinal contours: Postsurgical changes involving atrial clip and sternotomy wires. Bones: No acute osseous abnormality. IMPRESSION: No acute cardiopulmonary disease. ATED BY: JERO LONGORIA DO DICTATED DATE/TIME: 12/21/231929 SIGNED BY: JERO LONGORIA DO SIGNED DATE/TIME: 12/21/231929 CC: Time of 1ST Reevaluation: 03:37 Reevaluation 1ST: Improved Patient Education/Counseling: Diagnosis, Treatment Family Education/Counseling: No Family Present Comments Patient presented with the above HPI.----cardiac--workup was initiated. patient was found with the above mentioned diagnosis. Patient was given: Aspirin and nitroglycerin and Dania Patient ED course and VS have been stabilized. Patient has been reassessed in the ED and remained in a stable condition. Pertinent incidental findings were discussed with the patient and/or family. Patient/family voices understanding and is agreeable with plan. Patient has been observed in the ED adequate length of time to insure improvement/stability. patient was admitted to the medicine team for further evaluation and treatment of their presentation. All the reports of any imaging studies that were ordered by myself were reviewed by myself. Departure 1 Departure Time of Disposition: 19:29 Impression: Primary Impression: Chest pain Additional Impression: Hyperglycemia due to diabetes mellitus Disposition: ADMITTED INPATIENT Admit to: Tele Condition: Guarded Discharged With: Self Critical Care Note Critical Care Time?: No Heart Score Heart Score: Heart Score Response (Comments) Value History Slightly Suspicious 0 EKG Normal 0 Age >65 2 Risk Factors >3 or Hx ASHD 2 Troponin Normal limit 0 Total 4 SAMMI STEWART DO Dec 21, 2023 18:17
[2023-12-21 18:29] LABS: Basophils # (auto) 0 10 ^3/uL (0-0.2); Basophils % (auto) 0.2 % (0.0-2.0); Eosinophils # (auto) 0.2 10 ^3/uL (0-0.8); Eosinophils % (auto) 3.2 % (0.0-7.0); Hematocrit 31.2 % (41.0-53.0); Hemoglobin 10.2 g/dL (13.5-17.5); Lymphocytes # (auto) 3.6 10 ^3/uL (0.4-5.4); Lymphocytes % (auto) 50.6 % (10.0-50.0); Mean Corpuscular Hemoglobin 30.8 pg (28.0-32.0); Mean Corpuscular Hgb Conc. 32.7 g/dL (32.0-36.0); Mean Corpuscular Volume 94.1 fL (80.0-100.0); Monocytes # (auto) 0.5 10 ^3/uL (0-1.3); Monocytes % (auto) 7.5 % (0.0-12.0); Neutrophils # (auto) 2.7 10 ^3/uL (1.6-8.6); Neutrophils % (auto) 38.5 % (37.0-80.0); Nucleated Red Blood Cells % 0.1 %; Platelet Count (auto) 191 10^3/uL (140-450); Red Blood Cells 3.31 10^6/uL (4.5-5.90); White Blood Cell 7.1 10^3/uL (4.4-10.8)
[2023-12-21 19:01] LABS: INR 1.03 (0.9-1.15); Partial Thromboplastin Time 25.8 SEC (24.5-34.5); Prothrombin Time 10.9 sec (9.3-11.8)
[2023-12-21 19:07] LABS: Alanine Aminotransferase 57 U/L (7-40); Albumin 4.2 g/dL (3.2-4.8); Alkaline Phosphatase 215 U/L (46-116); Anion Gap 7 (5-15); Aspartate Aminotransferase 26 U/L (13-40); BUN/Creatinine Ratio 21.8 (10.0-20.0); Bilirubin, Total 0.2 mg/dL (0.2-1.0); Blood Urea Nitrogen 24 mg/dL (9-23); Calcium 9.7 mg/dL (8.7-10.4); Carbon Dioxide 25 mmol/L (20-31); Chloride 104 mmol/L (98-107); Potassium 4.7 mmol/L (3.5-5.1); Sodium 136 mmol/L (136-145); Total Protein 6.7 g/dL (5.7-8.2)
[2023-12-21 19:14] LABS: Glucose 422 mg/dL (74-106)
--- NOTE | 2023-12-21 19:32 | DVH ---
CHEST RADIOGRAPH Indication:CHEST PAIN Technique: Single frontal view of the chest was obtained Comparison: XY CHEST PORTABLE on DOS: 12/18/23, XY CHEST PORTABLE on DOS: 11/26/23, XY CHEST PORTABLE on DOS: 11/17/23 FINDINGS: Lines and Tubes: Right-sided PICC with tip terminating near the cavoatrial junction. Lungs: No focal consolidation. Pleura: No effusion. No pneumothorax. Cardiomediastinal contours: Postsurgical changes involving atrial clip and sternotomy wires. Bones: No acute osseous abnormality. IMPRESSION: No acute cardiopulmonary disease.
[2023-12-21] MEDS: NITROGLYCERIN 0.4 MG SL TAB SL ONE (21:43)
[2023-12-21] MEDS ORDERED: ONDANSETRON HCL 4 MG/2 ML VIAL IV PRN (22:15)
[2023-12-21] MEDS ORDERED: NITROGLYCERIN 0.4 MG SL TAB SL PRN (22:15)
[2023-12-21] MEDS ORDERED: VANCOMYCIN PER PHARMACY 0 MG IV SCH (22:15)
[2023-12-21] MEDS: HYDROcodone-ACET 5/325MG TAB PO ONE (22:26)
[2023-12-21 22:56] LABS: Urine Bacteria FEW /hpf (None Seen); Urine Blood Negative /uL (Negative); Urine Clarity Clear (Clear); Urine Color Light-Yellow (Yellow); Urine Mucus FEW (None Seen); Urine Protein, UAD Negative (Negative); Urine Specific Gravity 1.021 (1.001-1.035); Urine Urobilinogen Normal (Negative); Urine WBC 3 /hpf (0 - 3); Urine pH 5.5 (5.0-9.0)
[2023-12-21] MEDS ORDERED: DEXTROSE (50%) 50ML SYRG IV PRN (23:00)
[2023-12-21] MEDS: IBUPROFEN 600 MG TAB PO SCH (23:06)
--- NOTE | 2023-12-21 23:12 | DVHHPRES ---
History of Present Illness Resident Creating Document: BRANDON CALIXTO RESIDENT History of Present Illness JUAN M HARRELL is a 68 years old male with a PMH of type 2 DM, HLD, CAD, schizoaffective disorder, CVA, COPD presented to the ED with the chief complaints of chest pain from this morning. Patient was just discharged from this facility today moaning, at home he started having chest pain which is midsternal radiating to back, sharp pain, increased with the deep breathing. On my assessment patient denies nausea, vomiting, diarrhea, palpitations, and other acute associated symptoms. Past Medical History CAD, COPD, CVA, dm, HTN, MN, chronic foot wound, PAD Past Surgical History CABG, PTCA Family History Reviewed, noncontributory Past Social History Patient lives at home. Denies smoking, alcohol and other drug abuse. Review of Systems Constitutional: No: Fever, Chills, Sweats, Weakness, Malaise, Other Eyes: No: Pain, Vision change, Conjunctivae inflammation, Eyelid inflammation, Other, Redness ENT: No: Ear pain, Ear discharge, Nose pain, Nose discharge, Nose congestion, Mouth pain, Mouth swelling, Throat pain, Throat swelling, Other Respiratory: No: Cough, Dry, Shortness of breath, SOB with excertion, Wheezing, Hemoptysis, Pleuritic Pain, Sputum, Wheezing, Other Cardiovascular: Chest Pain Gastrointestinal: No: Nausea, Vomiting, Abdominal Pain, Diarrhea, Constipation, Melena, Hematochezia, Other Genitourinary: No Dysuria, No Frequency, No Incontinence, No Hematuria, No Retention, No Other Musculoskeletal: back pain; No: other, neck pain, shoulder pain, arm pain, hand pain, leg pain, foot pain Skin: No: Rash, Lesions, Jaundice, Bruising, Other Neurological: No: Weakness, Numbness, Incoordination, Change in speech, Confusion, Seizures, Other Allergies: Coded Allergies: NO KNOWN ALLERGIES (Unverified , 12/05/22) Medications Current Medications Medications Dose Ordered Sig/Chante Route Start Time Stop Time Status Last Admin Dose Admin Sodium Chloride 10 ml Q8HR IV 12/22/23 06:00 Acetaminophen 325 mg Q4HP PRN PO 12/21/23 22:15 Ondansetron HCl 4 mg Q4HP PRN IV 12/21/23 22:15 Morphine Sulfate 2 mg Q4HPRN PRN IV 12/21/23 22:15 Enoxaparin Sodium 40 mg DAILY SC 12/21/23 22:15 Nitroglycerin 0.4 mg Q5MINP PRN SL 12/21/23 22:15 Morphine Sulfate 2 mg Q30M PRN IV 12/21/23 22:15 Ibuprofen 600 mg BID PO 12/21/23 22:15 12/21/23 23:06 600 MG Pantoprazole Sodium 40 mg BID IV 12/21/23 22:15 Vancomycin HCl 0 ml @ 0 mls/hr UD IV 12/21/23 22:15 UNV Cefepime HCl 50 ml @ 12.5 mls/hr DAILY IV 12/21/23 22:15 Diagnostic Test (Pha) 1 strip ACHS 12/22/23 07:00 Insulin Human Regular AC SC 12/22/23 07:00 Insulin Human Regular HS SC 12/22/23 22:00 Dextrose 50 ml UD PRN IV 12/21/23 23:00 Insulin Glargine 15 units QAM SC 12/22/23 07:00 Exam Vital Signs Vital Signs Date Time Temp Pulse Resp B/P (MAP) Pulse Ox O2 Delivery O2 Flow Rate FiO2 12/21/23 22:53 152/50 12/21/23 21:39 97.6 92 18 100 97.6 Exam General Appearance: Alert, Oriented X3, Cooperative, Not in acute distress HEENT: Atraumatic, Mucous membranes moist/pink Respiratory: Clear to auscultation, Normal air movement, No added sounds Cardiovascular: Midline chest tenderness. Regular rate, Normal S1, Normal S2, No murmurs Abdominal: Active bowel sounds, Soft, no distention, no tenderness Extremities: No edema, Normal pulses, No tenderness/swelling Skin: No Significant rash, except past surgical scars Neuro: Normal speech, sensorimotor deficits none Psych/Mental Status: Mental status NL, Mood NL Nurse was there as sharperone during examination Labs/Xrays Labs Test 12/21/23 22:30 12/21/23 21:00 12/21/23 17:59 Range/Units Troponin I High Sensitivity 9 </=54 ng/L White Blood Count 7.1 # 4.4-10.8 10^3/uL Red Blood Count 3.31 L 4.5-5.90 10^6/uL Hemoglobin 10.2 L 13.5-17.5 g/dL Hematocrit 31.2 L 41.0-53.0 % Mean Corpuscular Volume 94.1 80.0-100.0 fL Mean Corpuscular Hemoglobin 30.8 28.0-32.0 pg Mean Corpuscular Hemoglobin Concent 32.7 32.0-36.0 g/dL Red Cell Distribution Width 17.0 H 11.8-14.3 % Platelet Count 191 140-450 10^3/uL Mean Platelet Volume 8.9 6.9-10.8 fL Neutrophils (%) (Auto) 38.5 37.0-80.0 % Lymphocytes (%) (Auto) 50.6 H 10.0-50.0 % Monocytes (%) (Auto) 7.5 0.0-12.0 % Eosinophils (%) (Auto) 3.2 0.0-7.0 % Basophils (%) (Auto) 0.2 0.0-2.0 % Neutrophils # (Auto) 2.7 1.6-8.6 10 ^3/uL Lymphocytes # (Auto) 3.6 0.4-5.4 10 ^3/uL Monocytes # (Auto) 0.5 0-1.3 10 ^3/uL Eosinophils # (Auto) 0.2 0-0.8 10 ^3/uL Basophils # (Auto) 0 0-0.2 10 ^3/uL Nucleated Red Blood Cells 0.1 % Prothrombin Time 10.9 9.3-11.8 sec Prothrombin Time INR 1.03 0.9-1.15 Activated Partial Thromboplast Time 25.8 24.5-34.5 SEC Sodium Level 136 136-145 mmol/L Potassium Level 4.7 3.5-5.1 mmol/L Chloride Level 104 98-107 mmol/L Carbon Dioxide Level 25 20-31 mmol/L Anion Gap 7 5-15 Blood Urea Nitrogen 24 H 9-23 mg/dL Creatinine 1.10 0.700-1.30 mg/dL Glomerular Filtration Rate Calc 74 >90 mL/min BUN/Creatinine Ratio 21.8 H 10.0-20.0 Serum Glucose 422 #*H 74-106 mg/dL Calcium Level 9.7 8.7-10.4 mg/dL Magnesium Level 2.0 1.6-2.6 mg/dL Total Bilirubin 0.2 0.2-1.0 mg/dL Aspartate Amino Transferase (AST) 26 13-40 U/L Alanine Aminotransferase (ALT) 57 H 7-40 U/L Alkaline Phosphatase 215 H 46-116 U/L B-Type Natriuretic Peptide 97.17 0-100 pg/mL Total Protein 6.7 5.7-8.2 g/dL Albumin 4.2 3.2-4.8 g/dL Assessment/Plan Assessment/Plan # uncontrolled type 2 DM -currently on aggressive ISS -giving Lantus 15 units -continuously monitor # chest pain rule out ACS # ? Costochondritis -reviewed EKG -troponins x3 are negative -consulted Dr Queen for further management -ordered a chest pain protocol -giving ibuprofen # osteomyelitis right foot - on 11/14/2023 patient had right foot I and D to bone and right calcaneal bone biopsy. - patient is on cefepime and vancomycin per podiatry recommendation - monitor labs # History of peripheral arterial stents in November 2022 at [facility] - continue aspirin # History of CABG December 2022 in [facility] - continue aspirin, Lipitor # Hypercholesterolemia - patient is on Lipitor 40 mg Diabetic diet Protonix Lovenox Reconciled home meds Goals of care discussed with the patient for more than 27 minutes: Full code status Case discussed with Dr. Coto, patient and nurse Plan discussed with: Patient, Other (RN) My Orders Orders - BRANDON CALIXTO RESIDENT Procedure Category Date Status Time Admit ADMIT 12/21/23 Transmitted 22:07 Allergies NICKIE 12/21/23 In Process 22:07 Code Status CODE 12/21/23 Transmitted 22:07 Sodium Chloride Lock PHA 12/22/23 In Process (Saline Lock Ns) 06:00 Acetaminophen Tablet PHA 12/21/23 In Process (Tylenol Tablet) 22:15 Ondansetron Hcl PHA 12/21/23 In Process (Zofran) 22:15 Complete Blood Count LAB 12/22/23 Verified 04:00 Comprehensive LAB 12/22/23 Verified Metabolic Panel 04:00 Cardiac DIET 12/22/23 Transmitted Diet-2gna,Lofat,Lochol Breakfast Morphine Sulfate PHA 12/21/23 In Process Injection 22:15 Enoxaparin Sodium PHA 12/21/23 In Process (Lovenox) 22:15 Nitroglycerin PHA 12/21/23 In Process Sublingual (Ntrostat 22:15 Morphine Sulfate PHA 12/21/23 In Process Injection 22:15 Oxygen By Nasal RT 12/21/23 Transmitted Cannula 22:07 Stat Ekg For Chest NICKIE 12/21/23 In Process Pain 22:07 Notify Of Changes NICKIE 12/21/23 In Process From Base 22:07 [employer] For NICKIE 12/21/23 In Process 24 Hours 22:07 Emergency Dysrhythmia NICKIE 12/21/23 In Process Protocol 22:07 Rhythm Strips Once NICKIE 12/21/23 In Process Every Shift 22:07 *Cons[address] Queen CONS 12/21/23 Transmitted Arunasalam 22:07 Ibuprofen Tablet PHA 12/21/23 In Process (Motrin Tablet) 22:15 Pantoprazole PHA 12/21/23 In Process (Protonix) 22:15 Vancomycin Per PHA 12/21/23 Pending Pharmacy 22:15 Cefepime 1gm/ 50ml PHA 12/21/23 In Process (Maxipime 1gm/50ml) 22:15 Vancomycin 1gm/200ml PHA 12/21/23 In Process Premix 22:30 Glucose Blood PHA 12/22/23 In Process (Accu-Chek Comfort 07:00 Insulin R (Human) PHA 12/22/23 In Process (Insulin R) 07:00 Insulin R (Human) PHA 12/22/23 In Process (Insulin R) 22:00 Dextrose 50% Syringe PHA 12/21/23 In Process 23:00 Insulin Lantus PHA 12/22/23 In Process (Glargine) (Lantus) 07:00 Hemoglobin A1c LAB 12/21/23 Logged 23:08 Urinalysis LAB 12/21/23 Logged 23:08 Date of Service: Dec 21, 2023 Billing Provider: CINDI COTO MD Common Visit Codes: [id number] INP/OBS CARE (HIGH) Secondary Visit Codes: [id number] CARE PLAN 30 MINUTES BRANDON CALIXTO RESIDENT Dec 21, 2023 23:12 CINDI COTO MD Dec 22, 2023 09:02
[2023-12-21] MEDS: ENOXAPARIN SOD 40 MG/0.4 ML SYRINGE SC SCH (23:13)
[2023-12-21] MEDS: ERGOCALCIFEROL 50,000 UNIT(1.25MG) CAP PO SCH (23:15)
[2023-12-21] MEDS: PANTOPRAZOLE 40 MG/10 ML VIAL INJ IV SCH (23:15)
[2023-12-21] MEDS: CEFEPIME 1GM/ 50ML 50 ML IV SCH (23:19)
[2023-12-21] MEDS: MORPHINE SULFATE INJ 2 MG/ml SYRG IV PRN (23:33)
[2023-12-21 23:34] VITALS: PULSE 85; RESP 18; O2SAT 100
[2023-12-21] MEDS: VANCOMYCIN 1GM/200ML PREMIX 200 ML IV ONE (23:40)
[2023-12-22] VITALS (9 sets, daily range): BP systolic 120–146; BP diastolic 45–71; PULSE 72–80; RESP 16–18; TEMP 97.9–98.6; O2SAT 96–100
[2023-12-22] MEDS: MORPHINE SULFATE INJ 2 MG/ml SYRG IV PRN (01:12)
[2023-12-22] MEDS: SODIUM CHLOR 0.9% PF (SALINE LOCK) 10ML VIAL/SYR IV SCH (06:00)
[2023-12-22 06:24] LABS: Basophils # (auto) 0 10 ^3/uL (0-0.2); Basophils % (auto) 0.5 % (0.0-2.0); Eosinophils # (auto) 0.3 10 ^3/uL (0-0.8); Eosinophils % (auto) 4.1 % (0.0-7.0); Hemoglobin 10.1 g/dL (13.5-17.5); Mean Corpuscular Hemoglobin 30.9 pg (28.0-32.0); Mean Corpuscular Hgb Conc. 32.7 g/dL (32.0-36.0); Mean Corpuscular Volume 94.7 fL (80.0-100.0); Monocytes # (auto) 0.6 10 ^3/uL (0-1.3); Monocytes % (auto) 8.6 % (0.0-12.0); Neutrophils # (auto) 2.5 10 ^3/uL (1.6-8.6); Neutrophils % (auto) 32.8 % (37.0-80.0); Platelet Count (auto) 196 10^3/uL (140-450); Red Blood Cells 3.27 10^6/uL (4.5-5.90); Red Cell Distribution Width 16.7 % (11.8-14.3); White Blood Cell 7.5 10^3/uL (4.4-10.8)
[2023-12-22] MEDS: ACCU-CHEK COMFORT CURVE STRIP VI SCH (06:36)
[2023-12-22] MEDS: InsuLIN REG 1unit/0.01ml Soln (100units/ml) SC SCH ×2 (06:45→22:06)
[2023-12-22] MEDS: INSULIN LANTUS (GLARGINE) 1 /0.01ml (100units/ml) SC SCH ×2 (06:45→14:28)
[2023-12-22 06:48] LABS: Alanine Aminotransferase 51 U/L (7-40); Albumin 4.2 g/dL (3.2-4.8); Alkaline Phosphatase 195 U/L (46-116); Anion Gap 9 (5-15); Aspartate Aminotransferase 21 U/L (13-40); BUN/Creatinine Ratio 24.1 (10.0-20.0); Blood Urea Nitrogen 27 mg/dL (9-23); Calcium 7.7 mg/dL (8.7-10.4); Carbon Dioxide 22 mmol/L (20-31); Chloride 109 mmol/L (98-107); Potassium 4.7 mmol/L (3.5-5.1); Sodium 140 mmol/L (136-145)
[2023-12-22 06:49] LABS: Bilirubin, Total 0.2 mg/dL (0.2-1.0); Total Protein 6.6 g/dL (5.7-8.2)
[2023-12-22 06:50] LABS: Glucose 281 mg/dL (74-106)
--- NOTE | 2023-12-22 10:25 | DVHPNRES ---
Progress Note Date Seen: Dec 22, 2023 Resident Creating Document: ERUM MCCAULEY RESIDENT Has the PT tested + for MRSA If YES, has PT been informed?: No Medical Necessity Reason Pt with a Central, PICC or Fol: No Subjective Review of Systems This is a 68-year-old male with past medical history of type 2 diabetes mellitus, dyslipidemia, CAD, s/p CABG, CVA, COPD, who presented to the ED with chief complaint of chest pain. The patient was recently discharged from our facility for exactly the same complaint in apparently ACS/WV was ruled out at that time. The patient presented to the ED complaining of retrosternal chest pain radiating to the back and rated as an 8/10 on the pain scale. The patient described the pain as a pressure type of pain but is reproducible to palpation. Initial labs were grossly unremarkable except for JOSÉ which was showing a creatinine of 1.12 and BUN of 27. Initial chest x-ray was grossly unremarkable. Last echocardiogram showing an LVEF of 55% with normal cardiac valves and no pericardial effusion. Troponins came back negative and BNP was normal range. Initial EKG was showing ectopic atrial rhythm which was a poor quality EKG. The patient also has a history of right foot osteomyelitis, patient was getting IV antibiotics at home. We will resume IV antibiotics and admit the patient for further assessment and management. Patient seen and examined at bedside. The patient described a retrosternal pain which is pressure in nature radiates to his back. The patient is a poor historian reason why we will try to contact the daughter Jie for further clarification of history. We resumed IV cefepime and vancomycin for right foot osteomyelitis. We started the patient on baclofen 10 mg q.p.m. and Lantus 15 units for diabetes control. We will monitor the patient today and discharge the patient tomorrow. ROS Constitutional: Denies weight loss, fever and chills. HEENT: Denies changes in vision and hearing. Respiratory: Denies shortness of breath and cough Cardiovascular: Reports retrosternal chest pain radiating to the back. Denies palpitations GI: Denies abdominal pain, nausea, vomiting and diarrhea. : Denies dysuria and urinary frequency. Musculoskeletal: Denies myalgias and joint pain Skin: Denies rash and pruritus. Neurological: Denies dizziness, headache, vision or hearing problems Objective vital signs Vital Sign Date Time Temp Pulse Resp B/P (MAP) Pulse Ox O2 Delivery O2 Flow Rate FiO2 12/22/23 07:17 75 18 120/50 12/22/23 05:00 98.6 100 98.6 12/22/23 03:17 Room Air* 0 21 Total Intake and Output 12/21/23 12/21/23 12/22/23 15:00 23:00 07:00 Intake Total 400 ml Output Total 0 ml Balance 400 ml medications Current Medications Medications Dose Ordered Sig/Chante Route Start Time Stop Time Status Last Admin Dose Admin Sodium Chloride 10 ml Q8HR IV 12/22/23 06:00 12/22/23 06:00 10 ML Acetaminophen 325 mg Q4HP PRN PO 12/21/23 22:15 Ondansetron HCl 4 mg Q4HP PRN IV 12/21/23 22:15 Morphine Sulfate 2 mg Q4HPRN PRN IV 12/21/23 22:15 12/22/23 06:47 2 MG Nitroglycerin 0.4 mg Q5MINP PRN SL 12/21/23 22:15 Morphine Sulfate 2 mg Q30M PRN IV 12/21/23 22:15 12/22/23 01:12 2 MG Ibuprofen 600 mg BID PO 12/21/23 22:15 12/21/23 23:06 600 MG Pantoprazole Sodium 40 mg BID IV 12/21/23 22:15 12/21/23 23:15 40 MG Vancomycin HCl 0 ml @ 0 mls/hr UD IV 12/21/23 22:15 Diagnostic Test (Pha) 1 strip ACHS 12/22/23 07:00 12/22/23 06:36 1 STRIP Insulin Human Regular AC SC 12/22/23 07:00 12/22/23 06:45 12 UNITS Insulin Human Regular HS SC 12/22/23 22:00 Dextrose 50 ml UD PRN IV 12/21/23 23:00 Insulin Glargine 15 units QAM SC 12/22/23 07:00 12/22/23 06:45 15 UNITS Baclofen 10 mg QPM PO 12/22/23 18:00 Clopidogrel Bisulfate 75 mg DAILY PO 12/22/23 10:00 Ergocalciferol 50,000 unit Q7D PO 12/21/23 23:15 Aspirin 81 mg DAILY PO 12/22/23 10:00 Atorvastatin Calcium 80 mg DAILY PO 12/22/23 10:00 Cefepime HCl 50 ml @ 12.5 mls/hr Q12H IV 12/22/23 11:00 Vancomycin HCl 150 ml @ 150 mls/hr Q12HR IV 12/22/23 10:00 Examination Physical Examination General: Patient alert and oriented. slight dementia. Patient following commands. HEENT: Normocephalic, atraumatic, moist mucous membranes Respiratory/pulmonary: Clear lungs bilaterally, no associated crackles or wheezes. Cardiovascular: Normal heart sounds S1 and S2 with no associated murmurs. There is reproducible pain to deep palpation to the thorax. Abdomen: Abdomen nondistended, there is no pain to palpation in any of the abdominal quadrants, no palpable masses. Extremities: There is no peripheral edema present at the lower extremities. Peripheral Pulses: 3+ Radial (R). 3+ Radial (L). 3+ Dorsalis pedis (R). 3+ Dorsalis pedis(L) Skin: No rashes or pruritus, there is no sacral edema present at this time. Neurological: Cranial nerves not evaluated independently. laboratory and microbiology Laboratory Tests 12/22/23 06:12 Test 12/22/23 06:12 Range/Units Serum Glucose 281 #H 74-106 mg/dL Problem List/Assessment/Plan Problem List/Assessment/Plan Assessment/Plan Acute chest pain R/O ACS, likely musculoskeletal/costochondritis -Initial EKG was showing ectopic atrial rhythm with no significant ST segment elevation or depression -we will repeat EKG once again -BNP was 97.17 -last echocardiogram showed an LVEF of 55% with normal cardiac valves and no pericardial effusion. -initial chest x-ray was grossly unremarkable with no cardiopulmonary disease -troponins came back negative -Start baclofen Right foot osteomyelitis -on 11/13/2023 patient had a right foot MRI which showed osteomyelitis. -on 11/14/2023 patient had right foot incision and drainage to the bone and right calcaneal bone biopsy -patient was started on IV vancomycin and cefepime -patient is currently coursing six week of IV antibiotics. JOSÉ likely due to VMN -Cr was 1.12 and BUN 27 -Monitor kidney function Type 2 diabetes mellitus uncontrolled -last hemoglobin A1c was 7.7% -currently on aggressive sliding scale insulin -Increase Lantus to 20units Qpm -Monitor BG closely Hx of PAD with stent placed on at [facility] Hx of CABG December 2022 in [facility] -Continue aspirin 81mg QD -Continue atorvastatin 40mg QD Dyslipidemia -[id number] QD Goals of care discussed with the patient at bedside for >23min, FULL CODE Plan discussed with Dr. Baca Plan discussed with: Patient Date of Service: Dec 22, 2023 Billing Provider: STEPHANIE BACA MD Common Visit Codes: [id number] INP/OBS CARE(HIGH) Secondary Visit Codes: [id number] CARE PLAN 30 MINUTES ERUM MCCAULEY RESIDENT Dec 22, 2023 10:25 STEPHANIE BACA MD Dec 23, 2023 20:22
[2023-12-22] MEDS: ASPirin-EC 81 mg tab PO SCH (11:13)
[2023-12-22] MEDS: CLOPIDOGREL BISULFATE 75 MG TAB PO SCH (11:13)
[2023-12-22] MEDS: ATORVASTATIN 20 MG TAB PO SCH (11:13)
[2023-12-22] MEDS: CEFEPIME 2GM/50ML NS 50 ML IV SCH (11:14)
--- NOTE | 2023-12-22 12:47 | DVHPN2 ---
Progress Note - Dictate Date Seen: Dec 22, 2023 Has the PT tested + for MRSA If YES, has PT been informed?: No Medical Necessity Reason Pt with a Central, PICC or Fol: No Subjective SX OF CHEST PAIN ECG NEGATIVE TROPONIN X3 NEGATIVE PAIN IS DESCRIBED CONSTANT RADIATING TO THE SHOULDERS CTA CHEST NEGATIVE MILD AORTIC ROOT DILATATION NO DISSECTION NO ANEURYSM L1 VERTEBRAL COMPRESSION FRACTURE PHM: OSTEOMYELITIS UNDER WENT DEBRIDEMENT S/P LE REVASCULARIZATION DIABETES VASCULOPATHY NEUROPATHY HTN HYPERLIPIDEMIA HYPERKALEMIA vital signs Vital Sign Date Time Temp Pulse Resp B/P (MAP) Pulse Ox O2 Delivery O2 Flow Rate FiO2 12/22/23 11:18 73 16 125/68 12/22/23 08:30 98.0 96 98.0 12/22/23 03:17 Room Air* 0 21 Total Intake and Output 12/21/23 12/21/23 12/22/23 14:59 22:59 06:59 Intake Total 400 ml Output Total 0 ml Balance 400 ml medications Current Medications Medications Dose Ordered Sig/Chante Route Start Time Stop Time Status Last Admin Dose Admin Sodium Chloride 10 ml Q8HR IV 12/22/23 06:00 12/22/23 06:00 10 ML Acetaminophen 325 mg Q4HP PRN PO 12/21/23 22:15 Ondansetron HCl 4 mg Q4HP PRN IV 12/21/23 22:15 Morphine Sulfate 2 mg Q4HPRN PRN IV 12/21/23 22:15 12/22/23 11:18 2 MG Nitroglycerin 0.4 mg Q5MINP PRN SL 12/21/23 22:15 Morphine Sulfate 2 mg Q30M PRN IV 12/21/23 22:15 12/22/23 01:12 2 MG Ibuprofen 600 mg BID PO 12/21/23 22:15 12/21/23 23:06 600 MG Pantoprazole Sodium 40 mg BID IV 12/21/23 22:15 12/22/23 11:14 40 MG Vancomycin HCl 0 ml @ 0 mls/hr UD IV 12/21/23 22:15 Diagnostic Test (Pha) 1 strip ACHS 12/22/23 07:00 12/22/23 06:36 1 STRIP Insulin Human Regular AC SC 12/22/23 07:00 12/22/23 06:45 12 UNITS Insulin Human Regular HS SC 12/22/23 22:00 Dextrose 50 ml UD PRN IV 12/21/23 23:00 Baclofen 10 mg QPM PO 12/22/23 18:00 Clopidogrel Bisulfate 75 mg DAILY PO 12/22/23 10:00 12/22/23 11:13 75 MG Ergocalciferol 50,000 unit Q7D PO 12/21/23 23:15 Aspirin 81 mg DAILY PO 12/22/23 10:00 12/22/23 11:13 81 MG Atorvastatin Calcium 80 mg DAILY PO 12/22/23 10:00 12/22/23 11:13 80 MG Cefepime HCl 50 ml @ 12.5 mls/hr Q12H IV 12/22/23 11:00 12/22/23 11:14 12.5 MLS/HR Vancomycin HCl 150 ml @ 150 mls/hr Q12HR IV 12/22/23 10:00 Insulin Glargine 20 units QAM SC 12/22/23 11:30 laboratory and microbiology Laboratory Tests 12/22/23 06:12 Test 12/22/23 06:12 Range/Units Serum Glucose 281 #H 74-106 mg/dL Problem List CG NEGATIVE TROPONIN X3 NEGATIVE PAIN IS DESCRIBED CONSTANT RADIATING TO THE SHOULDERS CTA CHEST NEGATIVE MILD AORTIC ROOT DILATATION NO DISSECTION NO ANEURYSM L1 VERTEBRAL COMPRESSION FRACTURE PHM: OSTEOMYELITIS UNDER WENT DEBRIDEMENT S/P LE REVASCULARIZATION DIABETES VASCULOPATHY NEUROPATHY HTN HYPERLIPIDEMIA HYPERKALEMIA ANEMIA Assessment/Plan HE CHANGES HIS STORY ALL THE TIME WHEN ASKED HE STATES ITS HIS BACK BNP NEGATIVE ECG NO ACUTE CHANGES HE STATES HIS PAIN IS IN HIS FOOT DAPT H/H IS TRENDING DOWN CONSIDER IRON REPLACEMENT CONSIDER GI WORKUP CORRECT HYPERKALEMIA WILL CNSIDER [facility] JUST SO THE PT DOES GET REPEATED ADMISSIONS Plan discussed with: Patient AGUILA LOPEZ MD Dec 22, 2023 12:47
[2023-12-22] MEDS: VANCOMYCIN 750mg/150ml 150 ML IV SCH (13:50)
[2023-12-22] MEDS: BACLOFEN 10 MG TAB PO SCH (18:22)
[2023-12-23 01:06] VITALS: BP 119/58; PULSE 78; RESP 16; TEMP 98.8; O2SAT 100
[2023-12-23] MEDS: ACETAMINOPHEN 325 MG TAB PO PRN (01:42)
[2023-12-23 05:00] VITALS: BP 127/75; PULSE 76; RESP 16; TEMP 98.6; O2SAT 99
[2023-12-23 06:42] LABS: Chloride 110 mmol/L (98-107); Potassium 5.1 mmol/L (3.5-5.1); Sodium 139 mmol/L (136-145)
[2023-12-23 06:43] LABS: Anion Gap 7 (5-15); Carbon Dioxide 22 mmol/L (20-31)
[2023-12-23 06:44] LABS: Calcium 9.1 mg/dL (8.7-10.4)
[2023-12-23 06:48] LABS: Glucose 270 mg/dL (74-106)
[2023-12-23 06:49] LABS: Blood Urea Nitrogen 32 mg/dL (9-23); Magnesium 1.7 mg/dL (1.6-2.6)
[2023-12-23 07:17] LABS: Hematocrit 29.9 % (41.0-53.0); Hemoglobin 9.4 g/dL (13.5-17.5); Mean Corpuscular Hgb Conc. 31.5 g/dL (32.0-36.0); Mean Corpuscular Volume 95.1 fL (80.0-100.0); Platelet Count (auto) 177 10^3/uL (140-450); Red Blood Cells 3.15 10^6/uL (4.5-5.90); White Blood Cell 7.8 10^3/uL (4.4-10.8)
[2023-12-23 07:27] LABS: Band Neutrophils % (manual) 0; Basophils % (manual) 0 (0.0-2.0); Blast Cells 0; Metamyelocytes % 0; Myelocytes % 0; Promyelocytes % 0
[2023-12-23] MEDS ORDERED: FERR-7 PO (07:44)
[2023-12-23] MEDS ORDERED: DOCU-94 PO (07:44)
[2023-12-23] MEDS ORDERED: IRON SUCROSE COMPLEX 110 ML IV SCH ×3 (07:45→12:00)
[2023-12-23 08:00] VITALS: PULSE 74
[2023-12-23 08:53] LABS: Eosinophils % (manual) 8 (0-7); Lymphocytes % (manual) 46 (10.0-50.0); Monocytes % (manual) 3 (0-12); Platelet Estimate Adequate; Reactive Lymphocytes 2
[2023-12-23 09:00] VITALS: BP 119/51; PULSE 82; RESP 16; TEMP 98.1; O2SAT 96
--- NOTE | 2023-12-23 09:25 | DVHPN2 ---
Progress Note - Dictate Date Seen: Dec 23, 2023 Has the PT tested + for MRSA If YES, has PT been informed?: No Medical Necessity Reason Pt with a Central, PICC or Fol: No Subjective SX OF CHEST PAIN ECG NEGATIVE TROPONIN X3 NEGATIVE PAIN IS DESCRIBED CONSTANT RADIATING TO THE SHOULDERS CTA CHEST NEGATIVE MILD AORTIC ROOT DILATATION NO DISSECTION NO ANEURYSM L1 VERTEBRAL COMPRESSION FRACTURE PHM: OSTEOMYELITIS UNDER WENT DEBRIDEMENT S/P LE REVASCULARIZATION DIABETES VASCULOPATHY NEUROPATHY HTN HYPERLIPIDEMIA HYPERKALEMIA vital signs Vital Sign Date Time Temp Pulse Resp B/P (MAP) Pulse Ox O2 Delivery O2 Flow Rate FiO2 12/23/23 05:00 98.6 76 16 127/75 (92) 99 98.6 12/22/23 20:00 Room Air* 0 21 Total Intake and Output 12/22/23 12/22/23 12/23/23 15:00 23:00 07:00 Intake Total 200 ml 890 ml 1000 ml Balance 200 ml 890 ml 1000 ml medications Current Medications Medications Dose Ordered Sig/Chante Route Start Time Stop Time Status Last Admin Dose Admin Sodium Chloride 10 ml Q8HR IV 12/22/23 06:00 12/23/23 05:26 10 ML Acetaminophen 325 mg Q4HP PRN PO 12/21/23 22:15 12/23/23 01:42 325 MG Ondansetron HCl 4 mg Q4HP PRN IV 12/21/23 22:15 Morphine Sulfate 2 mg Q4HPRN PRN IV 12/21/23 22:15 12/23/23 02:58 2 MG Nitroglycerin 0.4 mg Q5MINP PRN SL 12/21/23 22:15 Morphine Sulfate 2 mg Q30M PRN IV 12/21/23 22:15 12/22/23 01:12 2 MG Ibuprofen 600 mg BID PO 12/21/23 22:15 12/23/23 09:12 600 MG Pantoprazole Sodium 40 mg BID IV 12/21/23 22:15 12/23/23 09:11 40 MG Vancomycin HCl 0 ml @ 0 mls/hr UD IV 12/21/23 22:15 Diagnostic Test (Pha) 1 strip ACHS 12/22/23 07:00 12/23/23 06:20 1 STRIP Insulin Human Regular AC SC 12/22/23 07:00 12/23/23 06:32 12 UNITS Insulin Human Regular HS SC 12/22/23 22:00 12/22/23 22:06 2 UNITS Dextrose 50 ml UD PRN IV 12/21/23 23:00 Baclofen 10 mg QPM PO 12/22/23 18:00 12/22/23 18:22 10 MG Clopidogrel Bisulfate 75 mg DAILY PO 12/22/23 10:00 12/23/23 09:12 75 MG Ergocalciferol 50,000 unit Q7D PO 12/21/23 23:15 Aspirin 81 mg DAILY PO 12/22/23 10:00 12/23/23 09:17 81 MG Atorvastatin Calcium 80 mg DAILY PO 12/22/23 10:00 12/23/23 09:11 80 MG Cefepime HCl 50 ml @ 12.5 mls/hr Q12H IV 12/22/23 11:00 12/22/23 23:50 12.5 MLS/HR Vancomycin HCl 150 ml @ 150 mls/hr Q12HR IV 12/22/23 10:00 12/22/23 21:40 150 MLS/HR Insulin Glargine 20 units QAM SC 12/22/23 11:30 12/23/23 06:31 20 UNITS Iron Sucrose 110 ml @ 110 mls/hr DAILY@1200 IV 12/23/23 07:45 12/27/23 12:59 laboratory and microbiology Laboratory Tests 12/23/23 05:43 Test 12/23/23 05:43 Range/Units Serum Glucose 270 H 74-106 mg/dL Problem List CG NEGATIVE TROPONIN X3 NEGATIVE PAIN IS DESCRIBED CONSTANT RADIATING TO THE SHOULDERS CTA CHEST NEGATIVE MILD AORTIC ROOT DILATATION NO DISSECTION NO ANEURYSM L1 VERTEBRAL COMPRESSION FRACTURE PHM: OSTEOMYELITIS UNDER WENT DEBRIDEMENT S/P LE REVASCULARIZATION DIABETES VASCULOPATHY NEUROPATHY HTN HYPERLIPIDEMIA HYPERKALEMIA ANEMIA Assessment/Plan HE CHANGES HIS STORY ALL THE TIME WHEN ASKED HE STATES ITS HIS BACK BNP NEGATIVE ECG NO ACUTE CHANGES HE STATES HIS PAIN IS IN HIS FOOT DAPT H/H IS TRENDING DOWN CONSIDER IRON REPLACEMENT CONSIDER GI WORKUP CORRECT HYPERKALEMIA WILL CONSIDER [facility] OUTPATIENT JUST SO THE PT DOES GET REPEATED ADMISSIONS DC HOME Plan discussed with: Patient AGUILA LOPEZ MD Dec 23, 2023 09:25
[2023-12-23] MEDS: SODIUM FERR GLUC 62.5MG/5ML 110 ML IV SCH (10:33)
--- NOTE | 2023-12-23 10:52 | DVHDSRES ---
Discharge Summary Date of Admission Resident Creating Document: ERUM MCCAULEY RESIDENT Dec 21, 2023 at 22:07 Date of Discharge: Dec 23, 2023 Admitting Diagnosis acute chest pain Wounds: No present at this time. Labs/Diagnostic Data: Laboratory Results Test 12/23/23 09:20 12/23/23 06:22 12/23/23 05:43 12/22/23 06:12 Creatinine 1.13 mg/dL (0.700-1.30) Glomerular Filtration Rate Calc 71 mL/min (>90) Vancomycin Level Trough 10.0 ug/mL (5-10) POC Glucose 295 mg/dl (70-106) White Blood Count 7.8 10^3/uL (4.4-10.8) Red Blood Count 3.15 10^6/uL (4.5-5.90) Hemoglobin 9.4 g/dL (13.5-17.5) Hematocrit 29.9 % (41.0-53.0) Mean Corpuscular Volume 95.1 fL (80.0-100.0) Mean Corpuscular Hemoglobin 30.0 pg (28.0-32.0) Mean Corpuscular Hemoglobin Concent 31.5 g/dL (32.0-36.0) Red Cell Distribution Width 17.0 % (11.8-14.3) Platelet Count 177 10^3/uL (140-450) Mean Platelet Volume 9.3 fL (6.9-10.8) Neutrophils (%) (Auto) % (37.0-80.0) Lymphocytes (%) (Auto) % (10.0-50.0) Monocytes (%) (Auto) % (0.0-12.0) Basophils (%) (Auto) % (0.0-2.0) Neutrophils # (Auto) 10 ^3/uL (1.6-8.6) Lymphocytes # (Auto) 10 ^3/uL (0.4-5.4) Monocytes # (Auto) 10 ^3/uL (0-1.3) Differential Total Cells Counted 100.0 (100) Neutrophils % (Manual) 41 (37.0-80.0) Band Neutrophils % (Manual) 0 Lymphocytes % (Manual) 46 (10.0-50.0) Monocytes % (Manual) 3 (0-12) Eosinophils % (Manual) 8 (0-7) Basophils % (Manual) 0 (0.0-2.0) Metamyelocytes % (manual) 0 Myelocytes % (Manual) 0 Promyelocytes % (Manual) 0 Blast Cells % (Manual) 0 Reactive Lymphocytes 2 Platelet Estimate Adequate Sodium Level 139 mmol/L (136-145) Potassium Level 5.1 mmol/L (3.5-5.1) Chloride Level 110 mmol/L (98-107) Carbon Dioxide Level 22 mmol/L (20-31) Anion Gap 7 (5-15) Blood Urea Nitrogen 32 mg/dL (9-23) BUN/Creatinine Ratio 26.0 (10.0-20.0) Serum Glucose 270 mg/dL (74-106) Calcium Level 9.1 mg/dL (8.7-10.4) Magnesium Level 1.7 mg/dL (1.6-2.6) Eosinophils (%) (Auto) 4.1 % (0.0-7.0) Eosinophils # (Auto) 0.3 10 ^3/uL (0-0.8) Basophils # (Auto) 0 10 ^3/uL (0-0.2) Nucleated Red Blood Cells 0.0 % Hemoglobin A1c 7.7 % A1C (<5.7) Total Bilirubin 0.2 mg/dL (0.2-1.0) Aspartate Amino Transferase (AST) 21 U/L (13-40) Alanine Aminotransferase (ALT) 51 U/L (7-40) Alkaline Phosphatase 195 U/L (46-116) Total Protein 6.6 g/dL (5.7-8.2) Albumin 4.2 g/dL (3.2-4.8) Test 12/21/23 22:30 12/21/23 21:00 12/21/23 17:59 Urine Color Light-yellow (Yellow) Urine Clarity Clear (Clear) Urine pH 5.5 (5.0-9.0) Urine Specific Collins 1.021 (1.001-1.035) Urine Protein Negative (Negative) Urine Ketones Negative (Negative) Urine Blood Negative /uL (Negative) Urine Nitrite Negative (Negative) Urine Bilirubin Negative (Negative) Urine Urobilinogen Normal mg/dL (Negative) Urine Leukocyte Esterase Negative /uL (Negative) Urine RBC 1 /hpf (0 - 3) Urine WBC 3 /hpf (0 - 3) Urine Squamous Epithelial Cells Few /hpf (<5) Urine Bacteria Few /hpf (None Seen) Urine Mucus Few (None Seen) Urine Glucose 4+ mg/dL (Normal) Troponin I High Sensitivity 9 ng/L (</=54) Prothrombin Time 10.9 sec (9.3-11.8) Prothrombin Time INR 1.03 (0.9-1.15) Activated Partial Thromboplast Time 25.8 SEC (24.5-34.5) B-Type Natriuretic Peptide 97.17 pg/mL (0-100) Other Laboratory Tests 12/23/23 09:20 12/23/23 05:43 Brief Hx & Hospital Course: This is a 68-year-old male with past medical history of type 2 diabetes mellitus, dyslipidemia, CAD, s/p CABG, CVA, COPD, who presented to the ED with chief complaint of chest pain. The patient was recently discharged from our facility for exactly the same complaint in apparently ACS/[place] was ruled out at that time. The patient presented to the ED complaining of retrosternal chest pain radiating to the back and rated as an 8/10 on the pain scale. The patient described the pain as a pressure type of pain but is reproducible to palpation. Initial labs were grossly unremarkable except for JOSÉ which was showing a creatinine of 1.12 and BUN of 27. Initial chest x-ray was grossly unremarkable. Last echocardiogram showing an LVEF of 55% with normal cardiac valves and no pericardial effusion. Troponins came back negative and BNP was normal range. Initial EKG was showing ectopic atrial rhythm which was a poor quality EKG. The patient also has a history of right foot osteomyelitis, patient was getting IV antibiotics at home. We resumed IV antibiotics vancomycin and cefepime. We explained the patient that we did full cardiac workup and we ruled out any cardiac etiology at this point. Patient was seen and examined at bedside this morning, patient denied chest pain, shortness of breath or any other symptoms at this time. We explained that since the pain was reproducible to deep palpation to the thorax it might be due to inflammation of the cartilage ribs or even musculoskeletal in nature. We will discharge the patient home with PICC line in place which was placed on previous hospitalization for right foot osteomyelitis. Patient will continue IV antibiotics for five additional days. Patient is also receiving wound care at home. We will also send iron tablets 325 mg daily for 30 days and also docusate 100 mg q.d. for 30 days as well to prevent constipation. Patient agrees and understands the plan. ROS Constitutional: Denies weight loss, fever and chills. HEENT: Denies changes in vision and hearing. Respiratory: Denies shortness of breath and cough Cardiovascular: Denies chest discomfort or palpitations GI: Denies abdominal pain, nausea, vomiting and diarrhea. : Denies dysuria and urinary frequency. Musculoskeletal: Denies myalgias and joint pain Skin: Denies rash and pruritus. Neurological: Denies dizziness, headache, vision or hearing problems Physical Examination General: Patient alert and oriented. slight dementia. Patient following commands. HEENT: Normocephalic, atraumatic, moist mucous membranes Respiratory/pulmonary: Clear lungs bilaterally, no associated crackles or wheezes. Cardiovascular: Normal heart sounds S1 and S2 with no associated murmurs. There is reproducible pain to deep palpation to the thorax. Abdomen: Abdomen nondistended, there is no pain to palpation in any of the abdominal quadrants, no palpable masses. Extremities: There is a clean wound on roght foot. There is no peripheral edema present at the lower extremities. Peripheral Pulses: 3+ Radial (R). 3+ Radial (L). 3+ Dorsalis pedis (R). 3+ Dorsalis pedis(L) Skin: No rashes or pruritus, there is no sacral edema present at this time. Neurological: Cranial nerves not evaluated independently. Consults/Reason for consult N/A Operations or Procedures CHEST RADIOGRAPH Indication:CHEST PAIN Technique: Single frontal view of the chest was obtained Comparison: XY CHEST PORTABLE on DOS: 12/18/23, XY CHEST PORTABLE on DOS: 11/26/23, XY CHEST PORTABLE on DOS: 11/17/23 FINDINGS: Lines and Tubes: Right-sided PICC with tip terminating near the cavoatrial junction. Lungs: No focal consolidation. Pleura: No effusion. No pneumothorax. Cardiomediastinal contours: Postsurgical changes involving atrial clip and sternotomy wires. Bones: No acute osseous abnormality. IMPRESSION: No acute cardiopulmonary disease. Condition at Discharge: Good Final Diagnosis/Problems List Acute chest pain R/O ACS, likely musculoskeletal/costochondritis Right foot osteomyelitis JOSÉ likely due to VMN Type 2 diabetes mellitus uncontrolled Hx of PAD with stent placed on at [facility] Hx of CABG December 2022 in [facility] Dyslipidemia Discharge Disposition: Home Discharge Instruct/Medications Diet: Cardiac 2g Na,low cholest Activity: No Restrictions, As Tolerated Follow Up/Referral: F/U with his PCP in 1 week Medications: Iron tab 325mg QD for 30 days docusate 100mg QD for 30 days Discharge Statement: "Patient was advised to return to the ER or call 911 if any headaches, dizziness, shortness of breath, chest pain, abdominal pain, bleeding, fevers, or worsening of medical condition. Patient was counseled about treatment plan, medications, possible side effects, patientverbalized understanding. All questions were answered to the best of my ability. This discharge took greater then 30 minutes in planning, reviewing documentation, counseling the patient, and discussing with other team members." ASSESSMENT ASSESSMENT Assessment Acute chest pain R/O ACS, likely musculoskeletal/costochondritis Right foot osteomyelitis JOSÉ likely due to VMN Type 2 diabetes mellitus uncontrolled Hx of PAD with stent placed on at [facility] Hx of CABG December 2022 in [facility] Dyslipidemia Date of Service: Dec 23, 2023 Billing Provider: STEPHANIE MATOS MD Common Visit Codes: 20258-DKN/OBS DISCH DAY >30min ERUM MCCAULEY RESIDENT Dec 23, 2023 10:52 STEPHANIE MATOS MD Dec 23, 2023 20:22
[2023-12-23 13:00] VITALS: BP 123/70; PULSE 72; RESP 18; TEMP 97.4; O2SAT 94
[2023-12-23 16:46] VITALS: BP 128/78; PULSE 75; RESP 18; TEMP 98.6; O2SAT 98
--- NOTE | 2023-12-26 15:11 | ECG ---
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
== END 2023-12-23 18:24 | disposition home or self-care (01) | DRG 206 ==
LOC: ER 17:42 → EDUNIT# 17:42 → EDBD 17:42 → TELE 22:07 → TELE-EAST 23:53
PROVIDERS: ADMIT Internal Medicine Geriatric Medicine; ATTEND Internal Medicine Geriatric Medicine
DX: M94.0 Chondrocostal junction syndrome [Tietze] (principal); M86.8X7 Other osteomyelitis, ankle and foot; I24.9 Acute ischemic heart disease, unspecified; E11.65 Type 2 diabetes mellitus with hyperglycemia; E78.00 Pure hypercholesterolemia, unspecified; E78.5 Hyperlipidemia, unspecified; F25.9 Schizoaffective disorder, unspecified; I25.10 Atherosclerotic heart disease of native coronary artery without angina pectoris; J44.9 Chronic obstructive pulmonary disease, unspecified; I10 Essential (primary) hypertension; E11.40 Type 2 diabetes mellitus with diabetic neuropathy, unspecified; E87.5 Hyperkalemia; E11.69 Type 2 diabetes mellitus with other specified complication; Z95.1 Presence of aortocoronary bypass graft; Z86.73 Personal history of transient ischemic attack (TIA), and cerebral infarction without residual deficits; Z79.82 Long term (current) use of aspirin; Z79.899 Other long term (current) drug therapy
CPT/HCPCS: 36415; 71045; 80048; 80053; 80202; 81001; 82565; 82962; 83036; 83735; 83880; 84484; 85007; 85025; 85027; 85610; 85730; 93005; G0378; J0692; J1815; J2470

== ENCOUNTER 2024-01-29 18:52 | Inpatient (IN) | payer OTHER, MEDICAID ==
[~2024-01-29] VITALS: Ht 147.3 cm; Wt 59.0 kg
[~2024-01-29 18:52] MED LIST changes: +ALBU0.084 NEB; +DICL1GEL59 EX; +DICY20TA PO; +DOCU-94 PO; +EMPA1TAB3 PO; +FERR-7 PO; +FLUT1AER5 PO; +HYDR-4798 PO; +INSUINJ37 SC; +LINA290C PO; +METF-372 PO; +PEN400T PO
--- NOTE | 2024-01-29 19:00 | ECG ---
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
--- NOTE | 2024-01-29 19:17 | ED.PDOC ---
HPI Comments 69-year-old male brought in by EMS presents with a chief complaint of chest pain x onset 1 hour. Patient states that his chest pain is localized to his substernal chest, non-radiating, describes as sharp, and rates his pain a 8/10. Patient is a poor historian and does not remember his medical history. Patient has a large scar to the sternal aspect of his chest, but cannot recall what surgery it was for and who performed the surgery or where. Patient is ambulating with steady gait. Patient EKG shows NSR with a rate of 80. Chief Complaint: Chest Pain Time Seen by MD: 19:11 Primary Care Provider: UNKNOWN Reviewed Notes: Medications, Allergies Allergies: Coded Allergies: Aspirin (Verified Allergy, Unknown, 01/29/24) Home Meds Active Scripts Docusate Sodium (Colace) 100 Mg Cap, 1 CAP PO DAILY for 30 Days, #30 CAP Prov:ERUM MCCAULEY RESIDENT 12/23/23 Ferrous Sulfate (Iron) 325 Mg Tab, 325 MG PO DAILY for 30 Days, #30 TAB Prov:ERUM MCCAULEY RESIDENT 12/23/23 Baclofen (Baclofen) 10 Mg Tab, 10 MG PO QPM for 5 Days, #5 TAB Prov:SARA THRASHER MD 12/20/23 Ergocalciferol (VITAMIN D 18740 UNIT) 50,[address] [place], [address] UNIT PO Q7D for 90 Days, #12 CAP Prov:SEBLE CASTANEDA RESIDENT 12/01/23 Clopidogrel Bisulfate (Plavix) 75 Mg Tab, 1 TAB PO DAILY, #90 TAB 1 Refill Prov:NAZIA PERRY MD 11/18/23 Hydrocodone-Acetaminophen (Hydrocodone Bitartrate/AC 5-325 mg) 1 Tab Tab, 1 TAB PO QID PRN, #30 TAB Prov:NAZIA PERRY MD 11/18/23 Reported Medications Aspirin (Chewable Aspirin) 81 Mg Chw, 81 MG PO DAILY 11/11/23 Atorvastatin Calcium (ATORVASTATIN CALCIUM) 80 Mg Tab, 80 MG PO DAILY 11/11/23 Information Source: Patient Mode of Arrival: EMS Severity: Moderate Timing: Hours Duration: Since onset Prehospital treatment: None Location: Substernal Radiation: No Radiation Quality: Sharp Onset: At Rest Cardiac Risk Factors: Other (PATIENTS CONFUSED) PE Risk Factors: Recent Surgery (OPEN HEART SURGERY) History of: None Past Medical History PAST MEDICAL HISTORY: CAD, COPD, CVA, DM, HTN, [place] Surgical History: CABG, PTCA Family History Family History: Reviewed,noncontributory to illness, Unknown Social History Smoker: Non-Smoker Alcohol: Denies ETOH Use Drugs: Denies Drug Use Lives In: Home Constitutional: denies: chills, diaphoresis, fatigue, fever, malaise, sweats, weakness, others EENTM: denies: blurred vision, double vision, ear bleeding, ear discharge, ear drainage, ear pain, ear ringing, eye pain, eye redness, hearing loss, mouth pain, mouth swelling, nasal discharge, nose bleeding, nose congestion, nose pain, photophobia, tearing, throat pain, throat swelling, voice changes, others Respiratory: denies: cough, hemoptysis, orthopnea, SOB at rest, shortness of breath, SOB with excertion, stridor, wheezing, others Cardiovascular: reports: chest pain; denies: dizzy spells, diaphoresis, Dyspnea on exertion, edema, irregular heart beat, left arm pain, lightheadedness, palpitations, PND, syncope, others Gastrointestinal: denies: abdomen distended, abdominal pain, blood streaked bowels, constipated, diarrhea, dysphagia, difficulty swallowing, hematemesis, melena, nausea, poor appetite, poor fluid intake, rectal bleeding, rectal pain, vomiting, others Genitourinary: denies: burning, dysuria, flank pain, frequency, hematuria, incontinence, penile discharge, penile sore, pain, testicle pain, testicle swelling, urgency, others Neurological: denies: dizziness, fainting, headache, left sided numbness, left sided weakness, numbness, paresthesia, pre-existing deficit, right sided numbness, right sided weakness, seizure, speech problems, tingling, tremors, weakness, others Musculoskeletal: denies: back pain, gout, joint pain, joint swelling, muscle pain, muscle stiffness, neck pain, others Integumetry: denies: bruises, change in color, change in hair/nails, dryness, laceration, lesions, lumps, rash, wounds, others Allergic/Immunocompromised: denies: Difficulty Healing, Frequent Infections, Hives, Itching, others Hematologic/Lymphatic: denies: anemia, blood clots, easy bleeding, easy bruising, swollen glands, others Endocrine: denies: excessive hunger, excessive sweating, excessive thirst, excessive urination, flushing, intolerance to cold, intolerance to heat, unexplained weight gain, unexplained weight loss, others Psychiatric: denies: anxiety, bipolar disorder, depression, hopeless, panic disorder, schizophrenia, sleepless, suicidal, others All Other Systems: Reviewed and Negative Physical Exam General Appearance: No Apparent Distress, Normal HEENT: Normal ENT Inspection, Pharynx Normal, TMs Normal Neck: Full Range of Motion, Non-Tender, Normal, Normal Inspection Respiratory: Chest Non-Tender, Lungs Clear, No Accessory Muscle Use, No Respiratory Distress, Normal Breath Sounds Cardiovascular: No Edema, No JVD, No Murmur, No Gallop, Normal Peripheral Pulses, Regular Rate/Rhythm Breast Exam: Deferred Gastrointestinal: No Organomegaly, Non Tender, No Pulsatile Mass, Normal Bowel Sounds, Soft Genitalia: Deferred Pelvic: Deferred Rectal: Deferred Extremities: No calf tenderness, Normal capillary refill, Normal inspection, Normal range of motion, Non-tender, No pedal edema Musculoskeletal : Apperance: Normal Neurologic: Alert, supervisor powder and primer canning II-XII nml as Tested, No Motor Deficits, Normal Affect, Normal Mood, No Sensory Deficits Cerebellar Function: Normal Reflexes: Normal Skin: Dry, Normal Color, Warm Lymphatic: No Adenopathy EKG EKG : Pulse Rate (adult): 80 [place]: Normal Cardiac Rhythm: NSR Block: None Hypertrophy: None ST: Normal Was a procedure done? Was a procedure done?: No CP Differential Dx Differential Diagnosis: Heart Failure, Hyperventilation, MAT, PAC's Differential Diagnosis: CHF, HTN Essential, HTN Encephalopathy Differential Diagnosis: Angina, Esophageal reflux/spasm, Gastritis, Myocardial Infarction, Pericarditis, Pneumonia X-Ray, Labs, Meds, VS Vital Signs Date Time Temp Pulse Resp B/P (MAP) Pulse Ox O2 Delivery O2 Flow Rate FiO2 01/29/24 20:00 85 16 96/42 (60) 97 01/29/24 19:59 96/42 01/29/24 19:17 80 01/29/24 18:59 80 01/29/24 18:53 97.6 80 14 126/72 (90) 99 Lab Test 01/29/24 19:18 Range/Units White Blood Count 11.9 H 4.4-10.8 10^3/uL Red Blood Count 4.04 L 4.5-5.90 10^6/uL Hemoglobin 12.2 L 13.5-17.5 g/dL Hematocrit 37.8 L 41.0-53.0 % Mean Corpuscular Volume 93.6 80.0-100.0 fL Mean Corpuscular Hemoglobin 30.2 28.0-32.0 pg Mean Corpuscular Hemoglobin Concent 32.3 32.0-36.0 g/dL Red Cell Distribution Width 17.1 H 11.8-14.3 % Platelet Count 202 140-450 10^3/uL Mean Platelet Volume 9.2 6.9-10.8 fL Neutrophils (%) (Auto) 43.5 37.0-80.0 % Lymphocytes (%) (Auto) 49.7 10.0-50.0 % Monocytes (%) (Auto) 5.3 0.0-12.0 % Eosinophils (%) (Auto) 1.2 0.0-7.0 % Basophils (%) (Auto) 0.3 0.0-2.0 % Neutrophils # (Auto) 5.2 1.6-8.6 10 ^3/uL Lymphocytes # (Auto) 5.9 H 0.4-5.4 10 ^3/uL Monocytes # (Auto) 0.6 0-1.3 10 ^3/uL Eosinophils # (Auto) 0.1 0-0.8 10 ^3/uL Basophils # (Auto) 0 0-0.2 10 ^3/uL Nucleated Red Blood Cells 0.1 % Sodium Level 137 136-145 mmol/L Potassium Level 4.2 3.5-5.1 mmol/L Chloride Level 104 98-107 mmol/L Carbon Dioxide Level 24 20-31 mmol/L Anion Gap 9 5-15 Blood Urea Nitrogen 17 9-23 mg/dL Creatinine 0.98 0.700-1.30 mg/dL Glomerular Filtration Rate Calc 84 >90 mL/min BUN/Creatinine Ratio 17.3 10.0-20.0 Serum Glucose 155 H 74-106 mg/dL Calcium Level 9.8 8.7-10.4 mg/dL Troponin I High Sensitivity 15 </=54 ng/L Time of 1ST Reevaluation: 19:41 Reevaluation 1ST: Unchanged Patient Education/Counseling: Diagnosis, Treatment, Prognosis Family Education/Counseling: No Family Present Departure 1 Departure Time of Disposition: 20:02 (Patient presented with chest pain that was concerning for possible STEMI, ACS, PE, Pneumonia, Muscle Strain, COPD, Dissect ion. Data: 1. I ordered and reviewed the result of at least 3 labs including a CBC, BMP, and Troponin. 2. I independently interpreted the following tests: EKG which shows sinus arrythmia and Chest X-ray which shows benign chest s/p cabg.Risk:This patient has a high risk of morbidity due to further diagnostic testing or treatment and may suffer from an acute cardiac or respiratory d isorder. Workup reveals concern for acs and patient should be admitted for further workup and possible expert consultation. ) Impression: Primary Impression: Acute chest pain Additional Impression: Coronary artery disease Qualified Codes: I25.700 - Atherosclerosis of coronary artery bypass graft(s), unspecified, with unstable angina pectoris Disposition: ADMITTED INPATIENT Admit to: Med Surg Condition: Serious Critical Care Note Critical Care Time?: Yes Critical care comment: Acute chest pain Authorized and Performed by: Ashli Doss MD Total critical care time: Approximately 38 minutes Due to a high probability of clinically significant, life threatening deterioration, the patient required my highest level of preparedness to intervene emergently and I personally spent this critical care time directly and personally managing the patient. This critical care time included obtaining a history; examining the patient; pulse oximetry; ordering and review of studies; arranging urgent treatment with development of a management plan; evaluation of patient's response to treatment; frequent reassessment; and, discussions with other providers. This critical care time was performed to assess and manage the high probability of imminent, life-threatening deterioration that could result in multi-organ failure. It was exclusive of separately billable procedures and treating other patients and teaching time. Please see my other sections and the rest of the note for further information on patient assessment and treatment. Stability Stability form required: No Heart Score Heart Score: Heart Score Response (Comments) Value History Moderate Suspicious 1 EKG Repolarization Disturb 1 Age >65 2 Risk Factors >3 or Hx ASHD 2 Troponin 1-2 x's Normal limit 1 Total 7 I personally scribed for ASHLI DOSS MD ([email or web address]) on 01/29/24 at 19:17. Electronically submitted by Bakari Nails ([email or web address]). ASHLI DOSS MD Jan 29, 2024 19:17
[2024-01-29 19:42] LABS: Basophils # (auto) 0 10 ^3/uL (0-0.2); Basophils % (auto) 0.3 % (0.0-2.0); Eosinophils # (auto) 0.1 10 ^3/uL (0-0.8); Eosinophils % (auto) 1.2 % (0.0-7.0); Hematocrit 37.8 % (41.0-53.0); Hemoglobin 12.2 g/dL (13.5-17.5); Lymphocytes # (auto) 5.9 10 ^3/uL (0.4-5.4); Lymphocytes % (auto) 49.7 % (10.0-50.0); Mean Corpuscular Hemoglobin 30.2 pg (28.0-32.0); Mean Corpuscular Hgb Conc. 32.3 g/dL (32.0-36.0); Mean Corpuscular Volume 93.6 fL (80.0-100.0); Monocytes # (auto) 0.6 10 ^3/uL (0-1.3); Monocytes % (auto) 5.3 % (0.0-12.0); Neutrophils # (auto) 5.2 10 ^3/uL (1.6-8.6); Neutrophils % (auto) 43.5 % (37.0-80.0); Nucleated Red Blood Cells % 0.1 %; Platelet Count (auto) 202 10^3/uL (140-450); Red Blood Cells 4.04 10^6/uL (4.5-5.90); Red Cell Distribution Width 17.1 % (11.8-14.3); White Blood Cell 11.9 10^3/uL (4.4-10.8)
[2024-01-29 19:49] LABS: Chloride 104 mmol/L (98-107); Potassium 4.2 mmol/L (3.5-5.1); Sodium 137 mmol/L (136-145)
[2024-01-29 19:50] LABS: Anion Gap 9 (5-15); Carbon Dioxide 24 mmol/L (20-31)
[2024-01-29 19:51] LABS: Calcium 9.8 mg/dL (8.7-10.4)
[2024-01-29 19:55] LABS: BUN/Creatinine Ratio 17.3 (10.0-20.0); Blood Urea Nitrogen 17 mg/dL (9-23)
[2024-01-29 19:56] LABS: Glucose 155 mg/dL (74-106)
[2024-01-29] MEDS: NITROGLYCERIN 0.4 MG SL TAB SL ONE (19:59)
[2024-01-29] MEDS: ASPirin 81 mg TAB PO ONE (19:59)
--- NOTE | 2024-01-29 20:09 | DVH ---
EXAM: XY CHEST TWO VIEWS ROUTINE TECHNIQUE: Two radiographic views of the chest CLINICAL HISTORY: chest pain COMPARISON: None Findings/Impression: Frontal chest radiograph demonstrates no acute osseous or superficial soft tissue abnormalities. The trachea is midline. The cardiac silhouette and mediastinum are within normal limits. No pneumothorax, pleural effusions, or consolidations.
[2024-01-29] MEDS ORDERED: ONDANSETRON HCL 4 MG/2 ML VIAL IV PRN (21:00)
[2024-01-29] MEDS ORDERED: ACETAMINOPHEN 325 MG TAB PO PRN (21:00)
[2024-01-29] MEDS ORDERED: MORPHINE SULFATE INJ 2 MG/ml SYRG IV PRN (21:00)
[2024-01-29] MEDS ORDERED: DOCUSATE SOD 100 MG CAP PO PRN (21:00)
[2024-01-29] MEDS ORDERED: NITROGLYCERIN 0.4 MG SL TAB SL PRN (21:00)
[2024-01-29] MEDS: SODIUM CHLOR 0.9% PF (SALINE LOCK) 10ML VIAL/SYR IV SCH (21:56)
[2024-01-29] MEDS: MORPHINE SULFATE INJ 2 MG/ml SYRG IV PRN (21:57)
--- NOTE | 2024-01-29 22:08 | DVHHPRES ---
History of Present Illness Resident Creating Document: DWAINE FLOOD RESIDENT History of Present Illness Patient is 69 years old male with past medical history of CAD, CABG, PTCA, COPD, CVA, hypertension, diabetes mellitus type 2, NM, status post right foot osteomyelitis recently treated with IV antibiotic came with a complaint of chest pain. As per patient patient has been having chest pain for last 2 days, central, sharp in nature, 10/10 in severity, aggravates with breathing, relieved with [place]. Patient also reported having nausea and vomited 1 time yesterday, watery content, no blood. On further discussion patient also reported having constipation for last 1 week before. Patient also reported having dysuria for last 2 weeks, with increased urgency and polyuria. Patient denied any shortness of breath, fever, cough, diarrhea, acute joint pain or swelling, dysarthria or change in vision. Initial lab workup revealed leukocytosis with WBC 11.9, serum glucose 155, AST 44, ALT 47, alkaline phosphatase 209, other lab workup including hemoglobin/sodium/potassium close serum creatinine/troponin I was within normal limit. EKG revealed sinus rhythm no acute ST elevation. CXR no acute cardiopulmonary disease. Patient was admitted at [facility] 1 month before with chest pain and was diagnosed as chest pain due to muscu loskeletal reason. Patient also had osteomyelitis and has been treated with IV antibiotic at home. Previous echo revealed LVEF 55% on 11/27/2023. Past Medical History CAD, CABG, PTCA, COPD, CVA, hypertension, diabetes mellitus type 2, NM, status post right foot osteomyelitis treated with IV antibiotic Past Surgical History CABG, PTCA Past Social History Lives with daughter in an apartment, denies smoking/alcoholism/drug abuse Review of Systems Review of Systems Allergy- aspirin Patient was seen today at the bedside Cardiovascular- deny acute chest pain or shortness of breath or cough or palpitation Respiratory- denies cough or short of breath or wheezing Gastrointestinal- denies any rectal bleeding, nausea or vomiting Musculoskeletal-denies acute joint swelling or tenderness or redness Neurological- denies acute dysarthria, dysphagia, change in vision Psychiatry- denies depression or SI or HI Skin- denies acute rash or purpura Allergies: Coded Allergies: Aspirin (Verified Allergy, Unknown, 01/29/24) Medications Current Medications Medications Dose Ordered Sig/Chante Route Start Time Stop Time Status Last Admin Dose Admin Sodium Chloride 10 ml Q8HR IV 12/8/24 22:00 01/29/24 21:56 10 ML Ondansetron HCl 4 mg Q4HP PRN IV 01/29/24 21:00 Docusate Sodium 100 mg BIDPRN PRN PO 01/29/24 21:00 Acetaminophen 650 mg Q6HP PRN PO 01/29/24 21:00 Morphine Sulfate 2 mg Q4HPRN PRN IV 01/29/24 21:00 01/29/24 21:57 2 MG Nitroglycerin 0.4 mg Q5MINP PRN SL 01/29/24 21:00 Morphine Sulfate 2 mg Q30M PRN IV 01/29/24 21:00 Exam Vital Signs Vital Signs Date Time Temp Pulse Resp B/P (MAP) Pulse Ox O2 Delivery O2 Flow Rate FiO2 01/29/24 21:57 88 19 109/58 01/29/24 21:49 97.5 99 97.5 Exam General examination- awake, alert, conversant HEENT- PEERLA, no acute nasal discharge Cardiovascular- chewst wall tenderness++, S1-S2 audible, rate and rhythm regular, no murmur Respiratory- CTAB, no wheeze or rhonchi Gastrointestinal-nontender, bowel sound+. Nondistended Musculoskeletal-no acute joint swelling or tenderness or redness# Lower extremity- no leg edema Neurological- cranial nerves intact, no acute dysarthria or dysphagia Psychiatry- denies depression or SI or HI Skin- fragile skin Labs/Xrays Labs Test 01/29/24 20:06 01/29/24 19:18 Range/Units Troponin I High Sensitivity 17 </=54 ng/L White Blood Count 11.9 H 4.4-10.8 10^3/uL Red Blood Count 4.04 L 4.5-5.90 10^6/uL Hemoglobin 12.2 L 13.5-17.5 g/dL Hematocrit 37.8 L 41.0-53.0 % Mean Corpuscular Volume 93.6 80.0-100.0 fL Mean Corpuscular Hemoglobin 30.2 28.0-32.0 pg Mean Corpuscular Hemoglobin Concent 32.3 32.0-36.0 g/dL Red Cell Distribution Width 17.1 H 11.8-14.3 % Platelet Count 202 140-450 10^3/uL Mean Platelet Volume 9.2 6.9-10.8 fL Neutrophils (%) (Auto) 43.5 37.0-80.0 % Lymphocytes (%) (Auto) 49.7 10.0-50.0 % Monocytes (%) (Auto) 5.3 0.0-12.0 % Eosinophils (%) (Auto) 1.2 0.0-7.0 % Basophils (%) (Auto) 0.3 0.0-2.0 % Neutrophils # (Auto) 5.2 1.6-8.6 10 ^3/uL Lymphocytes # (Auto) 5.9 H 0.4-5.4 10 ^3/uL Monocytes # (Auto) 0.6 0-1.3 10 ^3/uL Eosinophils # (Auto) 0.1 0-0.8 10 ^3/uL Basophils # (Auto) 0 0-0.2 10 ^3/uL Nucleated Red Blood Cells 0.1 % D-Dimer, Quantitative 0.24 0.0-0.49 mg/L FEU Sodium Level 137 136-145 mmol/L Potassium Level 4.2 3.5-5.1 mmol/L Chloride Level 104 98-107 mmol/L Carbon Dioxide Level 24 20-31 mmol/L Anion Gap 9 5-15 Blood Urea Nitrogen 17 9-23 mg/dL Creatinine 0.98 0.700-1.30 mg/dL Glomerular Filtration Rate Calc 84 >90 mL/min BUN/Creatinine Ratio 17.3 10.0-20.0 Serum Glucose 155 H 74-106 mg/dL Calcium Level 9.8 8.7-10.4 mg/dL Thyroid Stimulating Hormone (TSH) 0.60 0.55-4.78 uIU/mL Assessment/Plan Assessment/Plan # acute chest pain likely due to musculoskeletal/pericarditis -rule out acute coronary syndrome -EKG with normal sinus rhythm, no acute ST elevation -Troponin I 15> 17 -BNP 96.3 -Chest pain in reproducible /Chest wall tenderness ++ -continue pain management as prescribed # suspected musculoskeletal pain -Chest pain reproducible -EKG with normal sinus rhythm, no acute ST elevation -Troponin I 15> 17 -BNP 96.3 -continue pain management as prescribed #Suspected UTI -c/w dysuria -pending urinalysis -leukocytosis with WBC 11.9 # transaminitis -AST 44, ALT 47, alkaline phosphatase 209, -monitor LFT # diabetes mellitus type 2 -HBA1C 8.2 -continue insulin sliding scale as prescribed # hypertension -continue IV hydralazine 10 mg q.6h p.r.n. # history of CVA -continue 75 mg mg p.o. daily #Hx of PAD with stent placed on Nov 2022 at [facility] Hx of CABG December 2022 in [facility] -Continue Plavix 75 mg QD -Continue atorvastatin 80mg QD # COPD, no acute exacerbation -nebulization p.r.n. #Dyslipidemia -Atorvastatin 80mg QD # history of Right foot osteomyelitis -on 11/13/2023 patient had a right foot MRI which showed osteomyelitis. -on 11/14/2023 patient had right foot incision and drainage to the bone and right calcaneal bone biopsy -s/p IV vancomycin and cefepime for 6 weeks Goals of care/advance care planning; FULL CODE; discussed with the patient >15 minutes PUD prophylaxis: Famotidine DVT prophylaxis: Lovenox Plan discussed with Dr. Cannon, nursing staff, patient Total time spent on patient evaluation, chart review, assessment and plan, discussion discussion >30 minutes Plan discussed with: Patient Plan discussed with: Patient, Other (RN) My Orders Orders - DWAINE FLOOD RESIDENT Procedure Category Date Status Time Admit ADMIT 01/29/24 Transmitted 20:48 Code Status CODE 01/29/24 Transmitted 20:48 Sodium Chloride Lock PHA 01/29/24 In Process (Saline Lock Ns) 22:00 Ondansetron Hcl PHA 01/29/24 In Process (Zofran) 21:00 Docusate Sodium PHA 01/29/24 In Process Capsule (Colace 21:00 Complete Blood Count LAB 01/30/24 Verified 04:00 Comprehensive LAB 01/30/24 Verified Metabolic Panel 04:00 Cardiac DIET 01/30/24 Transmitted Diet-2gna,Lofat,Lochol Breakfast Echo 2d Mode Cardiac US 01/29/24 Logged DOP 20:48 Acetaminophen Tablet PHA 01/29/24 In Process (Tylenol Tablet) 21:00 Morphine Sulfate PHA 01/29/24 In Process Injection 21:00 Nitroglycerin PHA 01/29/24 In Process Sublingual (Ntrostat 21:00 Morphine Sulfate PHA 01/29/24 In Process Injection 21:00 Oxygen By Nasal RT 01/29/24 Transmitted Cannula 20:48 Stat Ekg For Chest [facility] 01/29/24 In Process Pain 20:48 Notify Md Of Changes [facility] 01/29/24 In Process From Base 20:48 Cradle Placer For [facility] 01/29/24 In Process 24 Hours 20:48 Emergency Dysrhythmia [facility] 01/29/24 In Process Protocol 20:48 Rhythm Strips Once [facility] 01/29/24 In Process Every Shift 20:48 Magnesium LAB 01/29/24 Logged 21:04 Comprehensive LAB 01/29/24 Logged Metabolic Panel 21:04 B-Type Natriuretic LAB 01/29/24 In Process Peptide 21:04 C-Reactive Protein LAB 01/29/24 Logged 21:04 Erythrocyte LAB 01/29/24 In Process Sedimentation Rate 21:04 D-Dimer LAB 01/29/24 In Process 21:06 * Wound Consult CONS 01/29/24 Transmitted R Foot 2 View Xray XY 01/29/24 Logged 21:57 Date of Service: Jan 29, 2024 Billing Provider: CINDI CANNON MD Common Visit Codes: [id number] INP/OBS CARE (HIGH) Secondary Visit Codes: [id number] CARE PLAN 30 MINUTES DWANIE FLOOD RESIDENT Jan 29, 2024 22:08 CINDI CANNON MD Jan 30, 2024 21:40
[2024-01-29 22:12] LABS: Erythrocyte Sedimentation Rate 6 mm/hr (0-20)
[2024-01-29 22:59] LABS: Anion Gap 10 (5-15); BUN/Creatinine Ratio 16.4 (10.0-20.0); Blood Urea Nitrogen 19 mg/dL (9-23); CRP High Sensitivity 0.12 mg/dL (<1.0); Calcium 10.3 mg/dL (8.7-10.4); Carbon Dioxide 22 mmol/L (20-31); Chloride 106 mmol/L (98-107); Magnesium 2.4 mg/dL (1.6-2.6); Potassium 4.3 mmol/L (3.5-5.1); Sodium 138 mmol/L (136-145)
[2024-01-29 23:00] LABS: Bilirubin, Total 0.3 mg/dL (0.2-1.0); Total Protein 7.6 g/dL (5.7-8.2)
[2024-01-29 23:02] LABS: Alanine Aminotransferase 47 U/L (7-40); Albumin 5.2 g/dL (3.2-4.8); Alkaline Phosphatase 209 U/L (46-116); Aspartate Aminotransferase 44 U/L (13-40); Glucose 158 mg/dL (74-106)
--- NOTE | 2024-01-29 23:06 | DVH ---
CLINICAL INFORMATION: 69 years old, Male; HISTORY OF OSTEOMYELITIS. TECHNIQUE: 3 views of the right foot were obtained. COMPARISON: None FINDINGS: There is bony demineralization. Mild 1st MTP joint osteoarthritis. Normal alignment. Joint spaces oth erwise preserved. Plantar calcaneal enthesophyte. No acute fracture. No focal osteopenia or cortical destruction is seen to suggest osteomyelitis. Calcified atherosclerosis IMPRESSION: 1. Bony demineralization. No definite acute osteomyelitis. 2. No acute fracture. 3. Mild 1st MTP joint osteoarthritis.
[2024-01-29] MEDS ORDERED: DEXTROSE (50%) 50ML SYRG IV PRN (23:15)
[2024-01-29] MEDS: FAMOTIDINE 20 MG TAB PO ONE (23:29)
[2024-01-29] MEDS: ENOXAPARIN SOD 40 MG/0.4 ML SYRINGE SC ONE (23:29)
[2024-01-29] MEDS: ERGOCALCIFEROL 50,000 UNIT(1.25MG) CAP PO SCH (23:29)
[2024-01-29] MEDS: ATORVASTATIN 20 MG TAB PO ONE (23:29)
[2024-01-29 23:42] VITALS: PULSE 69; RESP 18; O2SAT 95
[2024-01-30 05:02] LABS: Alanine Aminotransferase 40 U/L (7-40); Anion Gap 10 (5-15); Aspartate Aminotransferase 36 U/L (13-40); BUN/Creatinine Ratio 15.6 (10.0-20.0); Blood Urea Nitrogen 15 mg/dL (9-23); Calcium 10.3 mg/dL (8.7-10.4); Carbon Dioxide 23 mmol/L (20-31); Chloride 106 mmol/L (98-107); Glucose 100 mg/dL (74-106); Magnesium 2.3 mg/dL (1.6-2.6); Potassium 4.6 mmol/L (3.5-5.1); Sodium 139 mmol/L (136-145)
[2024-01-30 05:03] LABS: Bilirubin, Total 0.4 mg/dL (0.2-1.0); Total Protein 7.7 g/dL (5.7-8.2)
[2024-01-30 05:06] LABS: Albumin 5.1 g/dL (3.2-4.8); Alkaline Phosphatase 201 U/L (46-116)
[2024-01-30 05:21] LABS: Hematocrit 38.4 % (41.0-53.0); Hemoglobin 12.7 g/dL (13.5-17.5); Mean Corpuscular Hemoglobin 30.7 pg (28.0-32.0); Mean Corpuscular Volume 93.1 fL (80.0-100.0); Platelet Count (auto) 230 10^3/uL (140-450); Red Blood Cells 4.12 10^6/uL (4.5-5.90); Red Cell Distribution Width 17.2 % (11.8-14.3); White Blood Cell 15.5 10^3/uL (4.4-10.8)
[2024-01-30 05:42] LABS: Band Neutrophils % (manual) 0; Basophils % (manual) 0 (0.0-2.0); Blast Cells 0; Metamyelocytes % 0; Myelocytes % 0; Promyelocytes % 0; Reactive Lymphocytes 0
--- NOTE | 2024-01-30 05:50 | ECG ---
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
--- NOTE | 2024-01-30 05:51 | ECG ---
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
[2024-01-30] MEDS: ACCU-CHEK COMFORT CURVE STRIP VI SCH (07:52)
[2024-01-30] MEDS: cefTRIAXone 1GM/50ML D5W 50 ML IV ONE (07:52)
[2024-01-30] MEDS: InsuLIN REG 1unit/0.01ml Soln (100units/ml) SC SCH (07:53)
[2024-01-30 07:58] VITALS: PULSE 87; RESP 18; O2SAT 95
--- NOTE | 2024-01-30 08:03 | DVHHPRES ---
History of Present Illness Resident Creating Document: DWAINE FLOOD RESIDENT Review of Systems Allergies: Coded Allergies: Aspirin (Verified Allergy, Unknown, 01/29/24) Medications Current Medications Medications Dose Ordered Sig/Chante Route Start Time Stop Time Status Last Admin Dose Admin Sodium Chloride 10 ml Q8HR IV 01/29/24 22:00 01/30/24 07:45 10 ML Ondansetron HCl 4 mg Q4HP PRN IV 01/29/24 21:00 Docusate Sodium 100 mg BIDPRN PRN PO 01/29/24 21:00 Acetaminophen 650 mg Q6HP PRN PO 01/29/24 21:00 Morphine Sulfate 2 mg Q4HPRN PRN IV 01/29/24 21:00 01/30/24 07:55 2 MG Nitroglycerin 0.4 mg Q5MINP PRN SL 01/29/24 21:00 Morphine Sulfate 2 mg Q30M PRN IV 01/29/24 21:00 Baclofen 10 mg QPM PO 01/30/24 18:00 Clopidogrel Bisulfate 75 mg DAILY PO 01/30/24 10:00 Docusate Sodium 100 mg DAILY PO 01/30/24 10:00 Ergocalciferol 50,000 unit Q7D PO 01/29/24 23:00 01/29/24 23:29 50,000 UNIT Atorvastatin Calcium 80 mg DAILY PO 01/30/24 10:00 Ferrous Sulfate 325 mg DAILY PO 01/30/24 10:00 Enoxaparin Sodium 40 mg DAILY SC 01/30/24 10:00 Famotidine 20 mg Q12HR PO 01/30/24 10:00 Diagnostic Test (Pha) 1 strip ACHS 01/30/24 07:00 01/30/24 07:52 1 STRIP Insulin Human Regular ACHS SC 01/30/24 07:00 01/30/24 07:53 2 UNITS Dextrose 50 ml UD PRN IV 01/29/24 23:15 Hydralazine HCl 10 mg Q6HP PRN IV 01/29/24 23:15 Ceftriaxone Sodium 50 ml @ 100 mls/hr DAILY@09 IV 01/31/24 09:00 Exam Vital Signs Vital Signs Date Time Temp Pulse Resp B/P (MAP) Pulse Ox O2 Delivery O2 Flow Rate FiO2 01/30/24 07:58 87 18 95 Room Air* 0 21 01/30/24 07:55 112/82 01/30/24 07:44 97.4 97.4 Labs/Xrays Labs Test 01/30/24 07:48 01/30/24 04:19 01/29/24 22:29 01/29/24 19:18 Range/Units POC Glucose 142 H 70-106 mg/dl White Blood Count 15.5 #H 4.4-10.8 10^3/uL Red Blood Count 4.12 L 4.5-5.90 10^6/uL Hemoglobin 12.7 L 13.5-17.5 g/dL Hematocrit 38.4 L 41.0-53.0 % Mean Corpuscular Volume 93.1 80.0-100.0 fL Mean Corpuscular Hemoglobin 30.7 28.0-32.0 pg Mean Corpuscular Hemoglobin Concent 33.0 32.0-36.0 g/dL Red Cell Distribution Width 17.2 H 11.8-14.3 % Platelet Count 230 140-450 10^3/uL Mean Platelet Volume 9.6 6.9-10.8 fL Neutrophils (%) (Auto) 37.0-80.0 % Lymphocytes (%) (Auto) 10.0-50.0 % Monocytes (%) (Auto) 0.0-12.0 % Basophils (%) (Auto) 0.0-2.0 % Neutrophils # (Auto) 1.6-8.6 10 ^3/uL Lymphocytes # (Auto) 0.4-5.4 10 ^3/uL Monocytes # (Auto) 0-1.3 10 ^3/uL Sodium Level 139 136-145 mmol/L Potassium Level 4.6 3.5-5.1 mmol/L Chloride Level 106 98-107 mmol/L Carbon Dioxide Level 23 20-31 mmol/L Anion Gap 10 5-15 Blood Urea Nitrogen 15 9-23 mg/dL Creatinine 0.96 0.700-1.30 mg/dL Glomerular Filtration Rate Calc 86 >90 mL/min BUN/Creatinine Ratio 15.6 10.0-20.0 Serum Glucose 100 74-106 mg/dL Hemoglobin A1c 8.2 H <5.7 % A1C Calcium Level 10.3 8.7-10.4 mg/dL Magnesium Level 2.3 1.6-2.6 mg/dL Total Bilirubin 0.4 0.2-1.0 mg/dL Aspartate Amino Transferase (AST) 36 13-40 U/L Alanine Aminotransferase (ALT) 40 7-40 U/L Alkaline Phosphatase 201 H 46-116 U/L Total Protein 7.7 5.7-8.2 g/dL Albumin 5.1 H 3.2-4.8 g/dL Plasma/Serum Blood Alcohol < 3.0 <10 mg/dL Troponin I High Sensitivity 15 </=54 ng/L C-Reactive Protein High Sensitivity 0.12 <1.0 mg/dL Eosinophils (%) (Auto) 1.2 0.0-7.0 % Eosinophils # (Auto) 0.1 0-0.8 10 ^3/uL Basophils # (Auto) 0 0-0.2 10 ^3/uL Nucleated Red Blood Cells 0.1 % Erythrocyte Sedimentation Rate 6 0-20 mm/hr D-Dimer, Quantitative 0.24 0.0-0.49 mg/L FEU B-Type Natriuretic Peptide 96.30 0-100 pg/mL Thyroid Stimulating Hormone (TSH) 0.60 0.55-4.78 uIU/mL Assessment/Plan Assessment/Plan # acute chest pain likely due to musculoskeletal/pericarditis -rule out acute coronary syndrome -EKG with normal sinus rhythm, no acute ST elevation -Troponin I 15> 17 -BNP 96.3 -Chest pain in reproducible /Chest wall tenderness ++ -continue pain management as prescribed # suspected musculoskeletal pain -Chest pain reproducible -EKG with normal sinus rhythm, no acute ST elevation -Troponin I 15> 17 -BNP 96.3 -continue pain management as prescribed #Suspected UTI -c/w dysuria -pending urinalysis -leukocytosis with WBC 11.9 # transaminitis -AST 44, ALT 47, alkaline phosphatase 209, -monitor LFT # diabetes mellitus type 2 -HBA1C 8.2 -continue insulin sliding scale as prescribed # hypertension -continue IV hydralazine 10 mg q.6h p.r.n. # history of CVA -continue 75 mg mg p.o. daily #Hx of PAD with stent placed on Nov 2022 at [facility] Hx of CABG December 2022 in [facility] -Continue Plavix 75 mg QD -Continue atorvastatin 80mg QD # COPD, no acute exacerbation -nebulization p.r.n. #Dyslipidemia -Atorvastatin 80mg QD # history of Right foot osteomyelitis -on 11/13/2023 patient had a right foot MRI which showed osteomyelitis. -on 11/14/2023 patient had right foot incision and drainage to the bone and right calcaneal bone biopsy -s/p IV vancomycin and cefepime for 6 weeks Goals of care/advance care planning; FULL CODE; discussed with the patient >15 minutes PUD prophylaxis: Famotidine DVT prophylaxis: Lovenox Plan discussed with Dr. Coto, nursing staff, patient Total time spent on patient evaluation, chart review, assessment and plan, discussion discussion >30 minutes Plan discussed with: Patient Plan discussed with: Patient, Other (RN) My Orders Orders - DWAINE FLOOD RESIDENT Procedure Category Date Status Time Admit ADMIT 01/29/24 Transmitted 20:48 Code Status CODE 01/29/24 Transmitted 20:48 Sodium Chloride Lock PHA 01/29/24 In Process (Saline Lock Ns) 22:00 Ondansetron Hcl PHA 01/29/24 In Process (Zofran) 21:00 Docusate Sodium PHA 01/29/24 In Process Capsule (Colace 21:00 Complete Blood Count LAB 01/30/24 In Process 04:00 Cardiac DIET 01/30/24 Transmitted Diet-2gna,Lofat,Lochol Breakfast Echo 2d Mode Cardiac US 01/29/24 Logged DOP 20:48 Acetaminophen Tablet PHA 01/29/24 In Process (Tylenol Tablet) 21:00 Morphine Sulfate PHA 01/29/24 In Process Injection 21:00 Nitroglycerin PHA 01/29/24 In Process Sublingual (Ntrostat 21:00 Morphine Sulfate PHA 01/29/24 In Process Injection 21:00 Oxygen By Nasal RT 01/29/24 Transmitted Cannula 20:48 Stat Ekg For Chest [facility] 01/29/24 In Process Pain 20:48 Notify Md Of Changes [facility] 01/29/24 In Process From Base 20:48 Broadcast Meteorologist For [facility] 01/29/24 In Process 24 Hours 20:48 Emergency Dysrhythmia [facility] 01/29/24 In Process Protocol 20:48 Rhythm Strips Once [facility] 01/29/24 In Process Every Shift 20:48 * Wound Consult CONS 01/29/24 Transmitted R Foot 2 View Xray XY 01/29/24 Resulted 21:57 Baclofen Tablet PHA 01/30/24 In Process (Liorisal Tablet) 18:00 Clopidogrel Bisulfate PHA 01/30/24 In Process (Plavix) 10:00 Docusate Sodium PHA 01/30/24 In Process Capsule (Colace 10:00 Ergocalciferol PHA 01/29/24 In Process (Vitamin D 50,000 23:00 Atorvastatin (Lipitor) PHA 01/30/24 In Process 10:00 Ferrous Sulfate Tablet PHA 01/30/24 In Process 10:00 Enoxaparin Sodium PHA 01/30/24 In Process (Lovenox) 10:00 Famotidine Tablet PHA 01/30/24 In Process (Pepcid Tablet) 10:00 Glucose Blood PHA 01/30/24 In Process (Accu-Chek Comfort 07:00 Insulin R (Human) PHA 01/30/24 In Process (Insulin R) 07:00 Dextrose 50% Syringe PHA 01/29/24 In Process 23:15 Hydralazine Injection PHA 01/29/24 In Process (Apresoline Inject 23:15 Urinalysis LAB 01/30/24 Logged 02:27 Communication Order ORDERS 01/30/24 Transmitted 02:27 Drug Screen LAB 01/30/24 Logged 02:27 Ceftriaxone 1gm/50ml PHA 01/31/24 In Process D5w (Rocephin) 09:00 Manual Differential LAB 01/30/24 In Process 04:19 DWAINE FLOOD RESIDENT Jan 30, 2024 08:02
[2024-01-30 08:11] LABS: Eosinophils % (manual) 2 (0-7); Lymphocytes % (manual) 43 (10.0-50.0); Monocytes % (manual) 3 (0-12)
[2024-01-30 08:13] LABS: Platelet Estimate Adequate
[2024-01-30] MEDS: FERROUS SULFATE 325mg EC TAB PO SCH (11:41)
[2024-01-30] MEDS: ENOXAPARIN SOD 40 MG/0.4 ML SYRINGE SC SCH (11:41)
[2024-01-30] MEDS: FAMOTIDINE 20 MG TAB PO SCH (11:41)
[2024-01-30] MEDS: DOCUSATE SOD 100 MG CAP PO SCH (11:42)
[2024-01-30] MEDS: CLOPIDOGREL BISULFATE 75 MG TAB PO SCH (11:42)
[2024-01-30] MEDS: ATORVASTATIN 20 MG TAB PO SCH (12:07)
[2024-01-30] MEDS: PANTOPRAZOLE 40 MG TAB PO ONE (15:38)
[2024-01-30] MEDS: MAALOX PLUS or MAALOX 30 ML PO ONE (17:57)
[2024-01-30] MEDS: IBUPROFEN 600 MG TAB PO ONE (17:58)
[2024-01-30] MEDS: BACLOFEN 10 MG TAB PO SCH (17:58)
[2024-01-30 18:46] LABS: Urine Bacteria None Seen /hpf (None Seen)
--- NOTE | 2024-01-30 19:08 | DVHPNRES ---
Progress Note Date Seen: Jan 30, 2024 Resident Creating Document: LEONARD LUCEROSIDDHARTH RESIDENT Medical Necessity Reason Pt with a Central, PICC or Fol: No Subjective Review of Systems Patient is a 69 year old male with a past medical history of hypertension, hyperlipidemia, uncontrolled type 2 diabetes mellitus, COPD, CABG 2022, peripheral artery disease status post PTCA came to the ED with a chief complaint of chest pain. Patient reported sharp chest pain 10/10 on intensity in the middle of the chest substernal, occurred at rest, nonradiating, cannot clearly define any association with deep breathing , reproducible tenderness and is relieved with pain medication. Denied associated shortness of breath, palpitations, headache. Patient reports no abdominal pain, 1 episode of vomiting yesterday watery content no blood. Patient reports having dysuria with increased urgency, frequency polyuria. Twelve lead ECG revealed sinus rhythm, no acute ischemic changes. Chest x-ray showed no acute cardiopulmonary disease, troponin levels were within normal limits. Past medical history:hypertension, hyperlipidemia, uncontrolled type 2 diabetes mellitus, COPD, CABG 2022, peripheral artery disease status post PTCA, right foot osteomyelitis Past surgical history: CABG, PTCA, right foot incision and drainage Social history: Lives with daughter smoking, alcohol, drug use Home medications: Aspirin, Plavix, atorvastatin Review of systems Patient was seen and examined at the bedside. Alert and oriented x4. Patient reports chest pain in the middle, intermittent, sharp in nature and has a reproducible costochondral tenderness. Denies nausea, vomiting, abdominal pain. Objective vital signs Vital Sign Date Time Temp Pulse Resp B/P (MAP) Pulse Ox O2 Delivery O2 Flow Rate FiO2 01/30/24 15:40 97.5 89 18 150/77 (101) 100 97.5 01/30/24 07:58 Room Air* 0 21 medications Current Medications Medications Dose Ordered Sig/Chante Route Start Time Stop Time Status Last Admin Dose Admin Sodium Chloride 10 ml Q8HR IV 01/29/24 22:00 01/30/24 14:30 10 ML Ondansetron HCl 4 mg Q4HP PRN IV 01/29/24 21:00 Docusate Sodium 100 mg BIDPRN PRN PO 01/29/24 21:00 Acetaminophen 650 mg Q6HP PRN PO 01/29/24 21:00 Morphine Sulfate 2 mg Q4HPRN PRN IV 01/29/24 21:00 01/30/24 07:55 2 MG Nitroglycerin 0.4 mg Q5MINP PRN SL 01/29/24 21:00 Morphine Sulfate 2 mg Q30M PRN IV 01/29/24 21:00 Baclofen 10 mg QPM PO 01/30/24 18:00 01/30/24 17:58 10 MG Clopidogrel Bisulfate 75 mg DAILY PO 01/30/24 10:00 01/30/24 11:42 75 MG Docusate Sodium 100 mg DAILY PO 01/30/24 10:00 01/30/24 11:42 100 MG Ergocalciferol 50,000 unit Q7D PO 01/29/24 23:00 01/29/24 23:29 50,000 UNIT Atorvastatin Calcium 80 mg DAILY PO 01/30/24 10:00 01/30/24 12:07 80 MG Ferrous Sulfate 325 mg DAILY PO 01/30/24 10:00 01/30/24 11:41 325 MG Enoxaparin Sodium 40 mg DAILY SC 01/30/24 10:00 01/30/24 11:41 40 MG Famotidine 20 mg Q12HR PO 01/30/24 10:00 01/30/24 11:41 20 MG Diagnostic Test (Pha) 1 strip ACHS 01/30/24 07:00 01/30/24 18:14 1 STRIP Insulin Human Regular ACHS SC 01/30/24 07:00 01/30/24 17:00 3 UNITS Dextrose 50 ml UD PRN IV 01/29/24 23:15 Hydralazine HCl 10 mg Q6HP PRN IV 01/29/24 23:15 Ceftriaxone Sodium 50 ml @ 100 mls/hr DAILY@09 IV 01/31/24 09:00 Aspirin 81 mg DAILY PO 01/31/24 10:00 Future Hold Pantoprazole Sodium 40 mg DAILY@0600 PO 01/31/24 06:00 Examination Physical Examination Gen - no pallor, no icterus, no cyanosis, no clubbing, no LAD, no edema . Skin - Patients skin is warm and dry.. HEENT - normocephalic, atraumatic, moist mucous membranes. Neck - full ROM, no LAD, no JVD. Pulmonary - B/L vesicular breath sounds. no crackles , no wheezing, no stridor. cardiovascular - normal S1,S2 heard. no murmurs heard. peripheral pulses normal radial 2+, pedal 2+. capillary refill normal <2 secs. GI - soft abdomen without tenderness to palpation . no hepatospleenomegaly. Bowel sounds normoactive Neurological - Patient is A/O X 3 . Bilateral upper extremity strength 5/5, bilateral lower extremity strength 5/5, no facial droop, normal speech, no tremor, no sensory deficiets. laboratory and microbiology Laboratory Tests 01/30/24 04:19 Test 01/30/24 04:19 Range/Units Serum Glucose 100 74-106 mg/dL Problem List/Assessment/Plan Problem List/Assessment/Plan Assessment/Plan # Acute chest pain # ruled out acute coronary syndrome -EKG with normal sinus rhythm, no acute ST elevation -Troponin I 15> 17 -BNP 96.3 -Chest pain in reproducible /Chest wall tenderness ++ -continue pain management with Ibuprofen and baclofen #Suspected UTI -c/w dysuria -pending urinalysis -leukocytosis with WBC 11.9-->15.5 - On ceftriaxone 1g daily # transaminitis -AST 44, ALT 47, alkaline phosphatase 209, -monitor LFT # diabetes mellitus type 2 -HBA1C 8.2 -continue insulin sliding scale as prescribed - Goal blood glucose 140-180 mg/dl. # hypertensive heart disease - on nifedipine 30mg daily -continue IV hydralazine 10 mg q.6h p.r.n. #Hx of PAD with stent placed on Nov [address] [facility] Hx of CABG December 2022 in [facility] -Continue Plavix 75 mg QD -Continue atorvastatin 80mg QD # COPD, no acute exacerbation -nebulization p.r.n. #Dyslipidemia -Atorvastatin 80mg QD # history of Right foot osteomyelitis -on 11/13/2023 patient had a right foot MRI which showed osteomyelitis. -on 11/14/2023 patient had right foot incision and drainage to the bone and right calcaneal bone biopsy -s/p IV vancomycin and cefepime for 6 weeks Sujey score 4- DVT prophylaxis with lovenox 40mg SC daily Goals of care discussed with the patient for over 31 minutes. Full code Plan discussed with Dr. Merrill Plan discussed with: Patient My Orders My Orders Orders - RADHA LUCERO RESIDENT Procedure Category Date Status Time Aspirin Tablet PHA 01/31/24 In Process 10:00 Pantoprazole Tablet PHA 01/31/24 In Process (Protonix Tablet) 06:00 Electrocardigram EKG 01/30/24 Logged 13:24 Date of Service: Jan 30, 2024 Billing Provider: SARA THRASHER MD Common Visit Codes: [id number] INP/OBS CARE(HIGH) RADHA LUCERO RESIDENT Jan 30, 2024 19:08 SARA THRASHER MD Feb 01, 2024 10:22
[2024-01-30 20:06] LABS: Urine Blood Negative /uL (Negative); Urine Clarity Clear (Clear); Urine Color Light-Yellow (Yellow); Urine Hyaline Cast FEW /lpf (0 - 2); Urine Mucus FEW (None Seen); Urine Protein, UAD TRACE (Negative); Urine Urobilinogen Normal (Negative); Urine WBC 1 /hpf (0 - 3)
[2024-01-30 20:09] LABS: Amphetamine Screen, Urine Neg (NEGATIVE)
[2024-01-30 20:10] LABS: Barbiturate Scree,Urine Neg (NEGATIVE); Benzodiazephine Screen, Urine Neg (NEGATIVE); Cannabinoid Screen, Urine Neg (NEGATIVE); Cocaine Screen, Urine Neg (NEGATIVE); Opiate Scree,Urine Neg (NEGATIVE); Phencyclidine Screen, Urine Neg (NEGATIVE)
[2024-01-30 21:28] VITALS: BP 165/72; PULSE 80; RESP 20; TEMP 97.7
[2024-01-31] VITALS (8 sets, daily range): BP systolic 119–164; BP diastolic 47–84; PULSE 75–90; RESP 16–20; TEMP 97.5–98.4; O2SAT 97–100
[2024-01-31] MEDS: hydrALAZINE HCL 20 MG/ML VL IV PRN (01:22)
[2024-01-31] MEDS: PANTOPRAZOLE 40 MG TAB PO SCH (06:08)
[2024-01-31] MEDS ORDERED: amLODIPine BESYLATE 5 MG TAB PO ONE (07:00)
[2024-01-31] MEDS ORDERED: IBUPROFEN 600 MG TAB PO ONE (07:00)
[2024-01-31 07:33] LABS: Basophils # (auto) 0 10 ^3/uL (0-0.2); Basophils % (auto) 0.1 % (0.0-2.0); Eosinophils # (auto) 0.1 10 ^3/uL (0-0.8); Eosinophils % (auto) 1.8 % (0.0-7.0); Hematocrit 35.3 % (41.0-53.0); Hemoglobin 11.7 g/dL (13.5-17.5); Lymphocytes # (auto) 3.8 10 ^3/uL (0.4-5.4); Lymphocytes % (auto) 45.6 % (10.0-50.0); Mean Corpuscular Hemoglobin 30.9 pg (28.0-32.0); Mean Corpuscular Hgb Conc. 33.2 g/dL (32.0-36.0); Mean Corpuscular Volume 92.9 fL (80.0-100.0); Monocytes # (auto) 0.5 10 ^3/uL (0-1.3); Monocytes % (auto) 5.4 % (0.0-12.0); Neutrophils # (auto) 3.9 10 ^3/uL (1.6-8.6); Neutrophils % (auto) 47.1 % (37.0-80.0); Nucleated Red Blood Cells % 0.3 %; Platelet Count (auto) 182 10^3/uL (140-450); Red Cell Distribution Width 17.3 % (11.8-14.3); White Blood Cell 8.4 10^3/uL (4.4-10.8)
[2024-01-31 08:01] LABS: Alanine Aminotransferase 25 U/L (7-40); Albumin 4.1 g/dL (3.2-4.8); Anion Gap 7 (5-15); Aspartate Aminotransferase 18 U/L (13-40); BUN/Creatinine Ratio 32.7 (10.0-20.0); Calcium 9.7 mg/dL (8.7-10.4); Carbon Dioxide 24 mmol/L (20-31); Potassium 4.7 mmol/L (3.5-5.1); Sodium 139 mmol/L (136-145)
[2024-01-31 08:02] LABS: Alkaline Phosphatase 167 U/L (46-116); Bilirubin, Total 0.3 mg/dL (0.2-1.0); Blood Urea Nitrogen 35 mg/dL (9-23); Chloride 108 mmol/L (98-107); Glucose 156 mg/dL (74-106)
[2024-01-31] MEDS: cefTRIAXone 1GM/50ML D5W 50 ML IV SCH (08:32)
[2024-01-31 08:45] LABS: COVID19 ANTIGEN SOFIA FIA NEGATIVE (NEGATIVE)
[2024-01-31] MEDS ORDERED: ASPirin 81 mg TAB PO SCH (10:00)
[2024-01-31 10:58] LABS: Rapid Influenza A Negative (Negative); Rapid Influenza B Negative (Negative)
[2024-01-31] MEDS ORDERED: BACL20TA PO (16:41)
[2024-01-31] MEDS ORDERED: IBUP-1454 PO (16:41)
[2024-01-31] MEDS ORDERED: AMLO1TAB22 PO (16:41)
--- NOTE | 2024-01-31 18:34 | DVHDSRES ---
Discharge Summary Date of Admission Resident Creating Document: RADHA LUCERO RESIDENT Jan 29, 2024 at 20:48 Date of Discharge: Jan 31, 2024 Admitting Diagnosis # acute chest pain likely due to musculoskeletal/pericarditis # suspected musculoskeletal pain # Suspected UTI # transaminitis # diabetes mellitus type 2 # hypertension # history of CVA # hx of PAD with stent placed on Nov 2022 at the [facility] # COPD, no acute exacerbation #Dyslipidemia # history of Right foot osteomyelitis Wounds: no wounds Labs/Diagnostic Data: Laboratory Results Test 01/31/24 11:11 01/31/24 10:00 01/31/24 07:57 01/31/24 06:46 POC Glucose 171 mg/dl (70-106) Influenza Type A Antigen Negative (Negative) Influenza Type B Antigen Negative (Negative) SARS-CoV-2 Antigen (Rapid) Negative (NEGATIVE) White Blood Count 8.4 10^3/uL (4.4-10.8) Red Blood Count 3.80 10^6/uL (4.5-5.90) Hemoglobin 11.7 g/dL (13.5-17.5) Hematocrit 35.3 % (41.0-53.0) Mean Corpuscular Volume 92.9 fL (80.0-100.0) Mean Corpuscular Hemoglobin 30.9 pg (28.0-32.0) Mean Corpuscular Hemoglobin Concent 33.2 g/dL (32.0-36.0) Red Cell Distribution Width 17.3 % (11.8-14.3) Platelet Count 182 10^3/uL (140-450) Mean Platelet Volume 9.4 fL (6.9-10.8) Neutrophils (%) (Auto) 47.1 % (37.0-80.0) Lymphocytes (%) (Auto) 45.6 % (10.0-50.0) Monocytes (%) (Auto) 5.4 % (0.0-12.0) Eosinophils (%) (Auto) 1.8 % (0.0-7.0) Basophils (%) (Auto) 0.1 % (0.0-2.0) Neutrophils # (Auto) 3.9 10 ^3/uL (1.6-8.6) Lymphocytes # (Auto) 3.8 10 ^3/uL (0.4-5.4) Monocytes # (Auto) 0.5 10 ^3/uL (0-1.3) Eosinophils # (Auto) 0.1 10 ^3/uL (0-0.8) Basophils # (Auto) 0 10 ^3/uL (0-0.2) Nucleated Red Blood Cells 0.3 % Sodium Level 139 mmol/L (136-145) Potassium Level 4.7 mmol/L (3.5-5.1) Chloride Level 108 mmol/L (98-107) Carbon Dioxide Level 24 mmol/L (20-31) Anion Gap 7 (5-15) Blood Urea Nitrogen 35 mg/dL (9-23) Creatinine 1.07 mg/dL (0.700-1.30) Glomerular Filtration Rate Calc 76 mL/min (>90) BUN/Creatinine Ratio 32.7 (10.0-20.0) Serum Glucose 156 mg/dL (74-106) Calcium Level 9.7 mg/dL (8.7-10.4) Total Bilirubin 0.3 mg/dL (0.2-1.0) Aspartate Amino Transferase (AST) 18 U/L (13-40) Alanine Aminotransferase (ALT) 25 U/L (7-40) Alkaline Phosphatase 167 U/L (46-116) Total Protein 6.0 g/dL (5.7-8.2) Albumin 4.1 g/dL (3.2-4.8) Test 01/30/24 18:45 01/30/24 10:30 01/30/24 04:19 01/29/24 22:29 Urine Color Light-yellow (Yellow) Urine Clarity Clear (Clear) Urine pH 5.0 (5.0-9.0) Urine Specific [place] 1.030 (1.001-1.035) Urine Protein Trace (Negative) Urine Ketones Negative (Negative) Urine Blood Negative /uL (Negative) Urine Nitrite Negative (Negative) Urine Bilirubin Negative (Negative) Urine Urobilinogen Normal mg/dL (Negative) Urine Leukocyte Esterase Negative /uL (Negative) Urine RBC <1 /hpf (0 - 3) Urine WBC 1 /hpf (0 - 3) Urine Squamous Epithelial Cells Few /hpf (<5) Urine Bacteria None seen /hpf (None Seen) Urine Hyaline Casts Few /lpf (0 - 2) Urine Mucus Few (None Seen) Urine Glucose 4+ mg/dL (Normal) Urine Opiates Screen Neg (NEGATIVE) Urine Fentanyl Screen Neg (NEGATIVE) Urine Barbiturates Screen Neg (NEGATIVE) Urine Phencyclidine Screen Neg (NEGATIVE) Urine Amphetamines Screen Neg (NEGATIVE) Urine Benzodiazepines Screen Neg (NEGATIVE) Urine Cocaine Screen Neg (NEGATIVE) Urine Cannabinoids Screen Neg (NEGATIVE) Lactic Acid Level 1.2 mmol/L (0.4-2.0) Differential Total Cells Counted 100.0 (100) Neutrophils % (Manual) 52 (37.0-80.0) Band Neutrophils % (Manual) 0 Lymphocytes % (Manual) 43 (10.0-50.0) Monocytes % (Manual) 3 (0-12) Eosinophils % (Manual) 2 (0-7) Basophils % (Manual) 0 (0.0-2.0) Metamyelocytes % (manual) 0 Myelocytes % (Manual) 0 Promyelocytes % (Manual) 0 Blast Cells % (Manual) 0 Reactive Lymphocytes 0 Platelet Estimate Adequate Hemoglobin A1c 8.2 % A1C (<5.7) Magnesium Level 2.3 mg/dL (1.6-2.6) Plasma/Serum Blood Alcohol < 3.0 mg/dL (<10) Troponin I High Sensitivity 15 ng/L (</=54) C-Reactive Protein High Sensitivity 0.12 mg/dL (<1.0) Test 01/29/24 19:18 Erythrocyte Sedimentation Rate 6 mm/hr (0-20) D-Dimer, Quantitative 0.24 mg/L FEU (0.0-0.49) B-Type Natriuretic Peptide 96.30 pg/mL (0-100) Thyroid Stimulating Hormone (TSH) 0.60 uIU/mL (0.55-4.78) Other Laboratory Tests 01/31/24 06:46 Brief Hx & Hospital Course: HPI Patient is a 69 year old male with a past medical history of hypertension, hyperlipidemia, uncontrolled type 2 diabetes mellitus, COPD, CABG 2022, peripheral artery disease status post PTCA came to the ED with a chief complaint of chest pain. Patient reported sharp chest pain 10/10 on intensity in the middle of the chest substernal, occurred at rest, nonradiating, cannot clearly define any association with deep breathing , reproducible tenderness and is relieved with pain medication. Denied associated shortness of breath, palpitations, headache. Patient reports no abdominal pain, 1 episode of vomiting yesterday watery content no blood. Patient reports having dysuria with increased urgency, frequency polyuria. Past medical history:hypertension, hyperlipidemia, uncontrolled type 2 diabetes mellitus, COPD, CABG 2022, peripheral artery disease status post PTCA, right foot osteomyelitis Past surgical history: CABG, PTCA, right foot incision and drainage Social history: Lives with daughter smoking, alcohol, drug use Home medications: Aspirin, Plavix, atorvastatin Hospital course Twelve lead ECG revealed sinus rhythm, no acute ischemic changes. Chest x-ray showed no acute cardiopulmonary disease, troponin levels were within normal limits. Patient had reproducible tenderness at the costochondral junction bilaterally. Patient was given ibuprofen and baclofen for the pain. After which she reported that the pain was better. Patient complained of dysuria and lower abdominal pain for which he was started on ceftriaxone with a urinalysis showed no bacteria no leukocyte esterase following which the ceftriaxone was discontinued. Patient was started on a regular diet which he tolerated well. Patient had elevated blood pressure for which she was given amlodipine which controlled the blood pressure well. Patient overnight reported no chest pain and no acute complaints. Patient was sent home in stable condition. Review of systems Patient was seen and examined at the bedside. Alert and oriented x4. Patient reports no chest pain , has mild reproducible costochondral tenderness. Denies nausea, vomiting, abdominal pain. Physical Examination Gen - no pallor, no icterus, no cyanosis, no clubbing, no LAD, no edema . Skin - Patients skin is warm and dry.. HEENT - normocephalic, atraumatic, moist mucous membranes. Neck - full ROM, no LAD, no JVD. Pulmonary - B/L vesicular breath sounds. no crackles , no wheezing, no stridor. cardiovascular - normal S1,S2 heard. no murmurs heard. peripheral pulses normal radial 2+, pedal 2+. capillary refill normal <2 secs. GI - soft abdomen without tenderness to palpation . no hepatospleenomegaly. Bowel sounds normoactive Neurological - Patient is A/O X 3 . Bilateral upper extremity strength 5/5, bilateral lower extremity strength 5/5, no facial droop, normal speech, no tremor, no sensory deficiets. Discharge plan Patient was discharged in stable condition advised to follow up with the PCP in 1 week Follow up in the outpatient cardiology clinic with Dr. Sheehan in 1-2 weeks. Medication: Continued on home medication Prescribed ibuprofen 600 mg b.i.d. p.r.n., baclofen 10 mg HS p.r.n., amlodipine 5 mg daily. Consults/Reason for consult no consultation Operations or Procedures Chest x-ray Findings/Impression: Frontal chest radiograph demonstrates no acute osseous or superficial soft tissue abnormalities. The trachea is midline. The cardiac silhouette and mediastinum are within normal limits. No pneumothorax, pleural effusions, or consolidations. Right foot x-ray IMPRESSION: 1. Bony demineralization. No definite acute osteomyelitis. 2. No acute fracture. 3. Mild 1st MTP joint osteoarthritis. Condition at Discharge: Good Final Diagnosis/Problems List # Acute chest pain # ruled out acute coronary syndrome #Suspected UTI # transaminitis # diabetes mellitus type 2 # hypertensive heart disease #Hx of PAD with stent placed on Nov 2022 at the [facility] # COPD, no acute exacerbation #Dyslipidemia # history of Right foot osteomyelitis Discharge Disposition: Home Discharge Instruct/Medications Diet: Cardiac 2g Na,low cholest Activity: No Restrictions, As Tolerated Follow Up/Referral: Follow up with the PCP in one week Follow up with in the outpatient clinic in 1-2 weeks Medications: as per EMR Discharge Statement: "Patient was advised to return to the ER or call 911 if any headaches, dizziness, shortness of breath, chest pain, abdominal pain, bleeding, fevers, or worsening of medical condition. Patient was counseled about treatment plan, medications, possible side effects, patientverbalized understanding. All questions were answered to the best of my ability. This discharge took greater then 30 minutes in planning, reviewing documentation, counseling the patient, and discussing with other team members." ASSESSMENT ASSESSMENT Assessment # Acute chest pain # ruled out acute coronary syndrome #Suspected UTI # transaminitis # diabetes mellitus type 2 # hypertensive heart disease #Hx of PAD with stent placed on Nov 2022 at the [facility] # COPD, no acute exacerbation #Dyslipidemia # history of Right foot osteomyelitis Date of Service: Jan 31, 2024 Billing Provider: SARA THRASHER MD Common Visit Codes: [id number] DISCH DAY >30min RADHA LUCERO RESIDENT Jan 31, 2024 18:34 SARA THRASHER MD Feb 01, 2024 10:14
== END 2024-01-31 16:30 | disposition home health service (06) | DRG 315 ==
LOC: ER 18:52 → EDBD 18:52 → TELE 20:48 → TELE-WESTW 01-31 01:54
PROVIDERS: ADMIT Student in an Organized Health Care Education/Training Program; ATTEND Student in an Organized Health Care Education/Training Program
DX: I30.9 Acute pericarditis, unspecified (principal); N39.0 Urinary tract infection, site not specified; J44.9 Chronic obstructive pulmonary disease, unspecified; E78.5 Hyperlipidemia, unspecified; E11.51 Type 2 diabetes mellitus with diabetic peripheral angiopathy without gangrene; Z20.822 Contact with and (suspected) exposure to COVID-19; I11.9 Hypertensive heart disease without heart failure; I25.10 Atherosclerotic heart disease of native coronary artery without angina pectoris; Z88.6 Allergy status to analgesic agent; Z86.73 Personal history of transient ischemic attack (TIA), and cerebral infarction without residual deficits; I25.2 Old myocardial infarction; Z95.1 Presence of aortocoronary bypass graft
CPT/HCPCS: 36415; 71046; 73620; 80048; 80053; 80307; 80320; 81001; 82962; 83036; 83605; 83735; 83880; 84443; 84484; 85007; 85025; 85027; 85379; 85652; 86141; 87081; 87426; 87804; 93005; 96365; 99291; G0378; J1815

== ENCOUNTER → 2024-02-27 | Outpatient (CLI) | payer OTHER, MEDICAID ==
[~2024-02-27] MED LIST changes: +AMLO1TAB22 PO; -ASPI1CHW5 PO; -BACL10TA PO; +BACL20TA PO; -HYDR-4902 PO; +IBUP-1454 PO
== END | disposition home or self-care (01) ==
LOC: Rad HDHVI 14:00
PROVIDERS: ATTEND Internal Medicine Cardiovascular Disease
DX: I10 Essential (primary) hypertension (principal)
CPT/HCPCS: 93306

== ENCOUNTER → 2024-03-07 | Outpatient (CLI) | payer OTHER, MEDICAID ==
[~2024-03-07] VITALS: Ht 175.3 cm; Wt 57.6 kg
[~2024-03-07] MED LIST changes: +ADENOSINE 48 MG in GIVE UN-DILUTED 0 ML IV ONE; +ADENOSINE 90 MG/30 ML INJ IV ONE
== END | disposition home or self-care (01) ==
LOC: Rad HDHVI 12:59
PROVIDERS: ATTEND Internal Medicine Cardiovascular Disease
DX: I11.9 Hypertensive heart disease without heart failure (principal); E11.42 Type 2 diabetes mellitus with diabetic polyneuropathy; I25.2 Old myocardial infarction; E78.00 Pure hypercholesterolemia, unspecified; K74.60 Unspecified cirrhosis of liver; J44.9 Chronic obstructive pulmonary disease, unspecified; E11.51 Type 2 diabetes mellitus with diabetic peripheral angiopathy without gangrene; I25.118 Atherosclerotic heart disease of native coronary artery with other forms of angina pectoris; Z95.1 Presence of aortocoronary bypass graft; Z79.4 Long term (current) use of insulin; Z88.6 Allergy status to analgesic agent; Z86.73 Personal history of transient ischemic attack (TIA), and cerebral infarction without residual deficits
CPT/HCPCS: 78452; 93005; 96374; 96375; A9500; J0153